=== PATIENT | male | born 1935 | race Caucasian/White ===

== ENCOUNTER 2017-03-18 23:15 | Inpatient (IN) | payer OTHER, MEDICARE ==
[~2017-03-18] VITALS: Ht 177.8 cm; Wt 78.3 kg
[~2017-03-18 23:15] MED LIST: ASPEC81 PO; ATOR-24 PO; COCO1OIL2 PO; LSN25 PO; MAGNESIUM; NTRSLP4 SL; OMEG10007 PO; PLV75 PO; TPRSR25 PO; VITAMINS; [UNRECOGNIZED DRUG - CODE]; [UNRECOGNIZED DRUG - OTHER]
[2017-03-18] MEDS ORDERED: COEN60CA PO (23:35)
[2017-03-18] MEDS ORDERED: MAGN400T6 PO (23:35)
[2017-03-18] MEDS ORDERED: LOSA1TAB PO (23:35)
[2017-03-18] MEDS ORDERED: CLOP1TAB15 PO (23:35)
[2017-03-18] MEDS ORDERED: NTRGSL/4 UT (23:35)
[2017-03-18] MEDS ORDERED: ASPI81TA28 PO (23:35)
[2017-03-18] MEDS ORDERED: OMEG10002 PO (23:35)
--- NOTE | 2017-03-18 23:44 | EMERGENCY ROOM VISIT NOTE ---
History Report prepared by Lisette: Berry Kelsey Under the Supervision of: Dr. Nakia Cruz D.O. First contact with patient: 23:20 Chief Complaint: STROKE SYMPTOMS Stated Complaint: STROKE History of Present Illness The patient is a 81 year old male who presents to the Emergency Room via EMS with complaints of sudden stroke symptoms occurring around 2144 tonight. Per the EMS, the patient was taking a bite of a donut, and then he started staring at the donut and having right sided weakness and right sided facial droop. The EMS states that the gave the patient aspirin before the EMS arrived. The EMS states that his symptoms have been constant since the onset, and nothing has gotten better or worse, and he was mumbling. The EMS states that the patient had good blood pressure and a blood sugar of 167. The states that the patient takes aspirin. 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 Source of History: spouse/significant other, EMS Onset: 2144 Position: other (global) Quality: other (stroke symptoms) Timing: other (sudden) Associated Symptoms: + weakness Note: Associated symptoms: facial droop Review of Systems See HPI for pertinent positives & negatives. A total of 10 systems reviewed and were otherwise negative. Past Medical & Surgical Medical Problems: (1) Heart attack (2) Stroke Family History FHx: heart disease Social History Smoking Status: Former Smoker Alcohol Use: none Drug Use: none Marital Status: Occupation Status: retired Current/Historical Medications Scheduled Aspirin (Aspirin Ec), 81 MG PO DAILY Atorvastatin (Lipitor), 40 MG PO DAILY Clopidogrel (Plavix), 75 MG PO DAILY Coconut Oil (Bulk) (Coconut Oil), 2 TBS PO BID Coenzyme Q10 (Ubidecarenone) (Coenzyme Q10), 60 MG PO DAILY Losartan Potassium (Cozaar), 25 MG PO DAILY Magnesium Oxide (Mag-Ox), 400 MG PO DAILY [place]-3 Fatty Acids (Fish Oil), 1,000 MG PO DAILY Scheduled PRN Nitroglycerin (Nitrostat), 0.4 MG UT PRN PRN for Chest Pain Allergies Coded Allergies: Crab (Verified Allergy, Unknown, 03/18/17) Iodinated Diagnostic Agents (Verified Adverse Reaction, Unknown, HEART PALPITATIONS, 03/18/17) Piroxicam (Verified Adverse Reaction, Unknown, STOMACH UPSET, ITCHING, ) Simvastatin (Verified Adverse Reaction, Unknown, ITCHING, 03/18/17) Physical Exam Vital Signs Date Time Temp Pulse Resp B/P (MAP) Pulse Ox O2 Delivery O2 Flow Rate FiO2 03/19/17 01:21 59 169/90 96 Room Air 03/19/17 01:16 60 170/89 95 Room Air 03/19/17 01:11 58 158/88 96 Room Air 03/19/17 01:06 56 145/78 96 Room Air 03/19/17 01:01 57 143/79 95 Room Air 03/19/17 00:56 161/84 95 Room Air 03/19/17 00:51 151/92 96 Room Air 03/19/17 00:47 156/84 95 Room Air 03/19/17 00:46 57 96 Room Air 03/19/17 00:41 150/82 96 Room Air 03/19/17 00:36 155/94 95 Room Air 03/19/17 00:31 57 151/83 95 Room Air 03/19/17 00:26 58 158/90 95 Room Air 03/19/17 00:25 58 16 95 Room Air 03/19/17 00:22 59 16 152/81 95 Room Air 03/19/17 00:20 62 95 03/19/17 00:16 164/92 03/19/17 00:11 170/97 03/19/17 00:06 163/85 03/19/17 00:05 63 95 03/19/17 00:01 186/95 03/18/17 23:56 159/84 03/18/17 23:51 156/88 03/18/17 23:50 62 95 03/18/17 23:46 62 157/84 95 Room Air 03/18/17 23:42 63 148/68 96 Room Air 03/18/17 23:37 63 157/74 96 Room Air 03/18/17 23:34 165/83 03/18/17 23:33 96 Room Air 03/18/17 23:33 36.7 69 16 165/68 96 Room Air 03/18/17 23:30 70 96 03/18/17 23:29 68 Physical Exam HEENT: Head - normocephalic and atraumatic. Pupils are equal, round, and reactive to light. Extraocular eye muscles are intact and sclera are anicteric. Nose - moist nasal mucosa without discharge. Mouth - moist buccal mucosa. Oropharynx is nonerythematous and there is no tonsillar exudate or edema noted. Neck: Supple; no JVD, nuchal rigidity, cervical lymphadenopathy, or auscultated bruits. Heart: Regular rate and rhythm. There is a normal S1 and S2 with no murmurs, clicks, or gallops appreciated. Lungs: Clear to auscultation bilaterally with no wheezes, rales, or rhonchi. Abdomen: Soft, completely nontender, nondistended, with good bowel sounds. There are no palpable pulsatile masses or hepatosplenomegaly. There is no guarding, rigidity, or rebound noted. Extremities: No evidence of cyanosis, clubbing, or edema. There are easily palpable peripheral pulses. Neuro: The patient is awake and alert with expressive aphasia but able to follow commands. Normal muscle strength of the right hand and wrist but 3/5 at the elbow and shoulder of the right arm. Left arm 5/5. Right leg is 4/5 at the hip and knee and 5/5 at the ankle. Normal pedal push and pull. Obvious right sided facial droop. There are no cerebellar signs. Medical Decision & Procedures ER Provider Diagnostic Interpretation: X-ray results as stated below per interpretation by me: Chest: Normal mediastinum. No pulmonary consolidation or infiltrate. Radiology results as stated below per my review and the radiologist's interpretation: CT HEAD: No ICH, mass effect, or midline shift. No CT evidence of large territorial infarct. The swartz-white matter differentiation appears preserved. Sulci, ventricles, and basal cisterns are normal for patient age. No evidence of skull fracture. Clear sinuses and mastoid air cells. Radiologist: Armaan Clement M.D. Laboratory Results 03/18/17 23:10 Red Blood Count 4.82, Mean Corpuscular Volume 95.6, Mean Corpuscular Hemoglobin 32.2, Mean Corpuscular Hemoglobin Concent 33.6, Mean Platelet Volume 9.0, Neutrophils (%) (Auto) 62.4, Lymphocytes (%) (Auto) 19.8, Monocytes (%) (Auto) 7.3, Eosinophils (%) (Auto) 9.8, Basophils (%) (Auto) 0.4, Neutrophils # (Auto) 4.51, Lymphocytes # (Auto) 1.43, Monocytes # (Auto) 0.53, Eosinophils # (Auto) 0.71, Basophils # (Auto) 0.03 03/18/17 23:10 Test 03/18/17 23:10 03/18/17 23:29 03/19/17 00:04 White Blood Count 7.23 K/uL (4.8-10.8) Red Blood Count 4.82 M/uL (4.7-6.1) Hemoglobin 15.5 g/dL (14.0-18.0) Hematocrit 46.1 % (42-52) Mean Corpuscular Volume 95.6 fL (80-100) Mean Corpuscular Hemoglobin 32.2 pg (25-34) Mean Corpuscular Hemoglobin Concent 33.6 g/dl (32-36) Platelet Count 214 K/uL (130-400) Mean Platelet Volume 9.0 fL (7.4-10.4) Neutrophils (%) (Auto) 62.4 % Lymphocytes (%) (Auto) 19.8 % Monocytes (%) (Auto) 7.3 % Eosinophils (%) (Auto) 9.8 % Basophils (%) (Auto) 0.4 % Neutrophils # (Auto) 4.51 K/uL (1.4-6.5) Lymphocytes # (Auto) 1.43 K/uL (1.2-3.4) Monocytes # (Auto) 0.53 K/uL (0.11-0.59) Eosinophils # (Auto) 0.71 K/uL (0-0.5) Basophils # (Auto) 0.03 K/uL (0-0.2) RDW Standard Deviation 48.1 fL (36.4-46.3) RDW Coefficient of Variation 13.7 % (11.5-14.5) Immature Granulocyte % (Auto) 0.3 % Immature Granulocyte # (Auto) 0.02 K/uL (0.00-0.02) Prothrombin Time 10.4 SECONDS (9.0-12.0) Prothromb Time International Ratio 1.0 (0.9-1.1) Activated Partial Thromboplast Time 26.8 SECONDS (21.0-31.0) Partial Thromboplastin Ratio 1.0 Est Creatinine Clear Calc Drug Dose 51.5 ml/min Estimated GFR () 66.3 Estimated GFR (Non- 57.2 BUN/Creatinine Ratio 11.5 (10-20) Calcium Level 8.2 mg/dl (8.5-10.1) Magnesium Level 2.3 mg/dl (1.8-2.4) Total Creatine Kinase 103 U/L (39-308) Creatine Kinase MB 0.9 ng/ml (0.5-3.6) Creatine Kinase MB Ratio 0.9 (0-3.0) Troponin I 0.527 ng/ml (0-0.045) Thyroid Stimulating Hormone (TSH) 4.020 uIu/ml (0.300-4.500) Bedside Glucose 123 mg/dl (70-99) Bedside Hemoglobin 16.0 g/dl (14.0-18.0) Bedside Hematocrit 47 % (42-52) Bedside Sodium 142 mEq/L (135-144) Bedside Potassium 3.9 mEq/L (3.3-5.0) Bedside Chloride 104 mEq/L (101-112) Bedside Total CO2 26 mEq/l (24-31) Anion Gap 17.0 mmol/L (16-25) Bedside Blood Urea Nitrogen 14 mg/dl (7-18) Bedside Creatinine 1.0 mg/dl (0.6-1.3) Bedside Glucose (other) 126 mg/dl (70-99) Bedside Ionized Calcium (Josette) 1.14 mmol/l (1.12-1.32) Laboratory results per my review. Medications Administered Medications (Trade) Dose Ordered Sig/[facility] Route Start Time Stop Time Status Last Admin Dose Admin Alteplase, Recombinant 72 mg/ Empty Bag 72 ml @ 72 mls/hr TODAY@2350 IV 03/18/17 23:50 03/19/17 00:49 DC 03/18/17 23:50 72 MLS/HR Alteplase, Recombinant 8 mg/ Syringe 8 ml @ 8 mls/min TODAY@2350 IV 03/18/17 23:50 03/18/17 23:59 DC 03/18/17 23:50 8 MLS/MIN Sodium Chloride 1,000 ml @ 50 mls/hr Q20H IV 03/18/17 23:57 03/19/17 01:51 DC 03/18/17 23:57 50 MLS/HR Procedure Medications: Alteplase IV, NSS IV ECG Indication: other (stroke symptoms) Rate (beats per minute): 63 Rhythm: normal sinus Findings: 1st degree AV block, no acute ischemic change, no ectopy ED Course 2320: Past medical records reviewed. A stroke alert was called. I met the patient with EMS in the ambulance bay entrance and the patient went directly to CT scan. The patient was evaluated in room A1. A complete history and physical exam was performed. Laboratory studies were drawn as above. Twelve-lead EKG was obtained and a stroke protocol was performed. I discussed the case with Dr. Stephens. 2356: I reevaluated the patient. 2357: Sodium Chloride 1000 ml @ 50 mls/hr IV. 0017: I reassessed the patient, and the family was talking with Dr. Stephens via telestroke, and he reviewed the risks and benefits of TPA with the family, and they elected to use it 0030: I reassessed the patient, and the TPA was administered, and his speech was slightly improved 0031: I discussed the patient's case with Dr. Negro 0032: I discussed the patient's case with Dr. Street, ICU, and he is going to evaluate the patient for further treatment 0111: I reevaluated the patient, and there was additional improvement. The face was not as drooped, and he seems to have improved strength in the right arm. Medical Decision The patient is a 81 year old male who presents to the ED with stroke symptoms. Differential diagnosis includes hypoglycemia, TIA, stroke, and intracranial hemorrhage. I attest that I have personally reviewed the patient's current medication list. Patient was found initially to have an elevated blood pressure, and he will be followed closely after receiving TPA. Lab results show: No leukocytosis, stable H&H, elevated troponin at 0.5, glucose 126, normal renal function, glucose 123, normal coags CT scan of the brain was unremarkable. The patient was evaluated through tele- stroke. Neurology from [place] felt the patient was an appropriate candidate for TPA. This was administered and there was some neurological improvement. I' ve discussed the case with the [facility] Hospitalist as well as the business applications specialist and they will care for the patient. The patient's blood pressure remained controlled. Consults Time Called: 28 Consulting Physician: Dr. Negro Returned Call: [phone] I discussed the patient's case with Dr. Negro Additional Consults: Time Called: 28 Consulted Physician: Dr. Street Returned Call: [phone] Additional Comments: I discussed the patient's case with Dr. Street, ICU, and he is going to evaluate the patient for further treatment Impression Primary Impression: Acute CVA (cerebrovascular accident) Critical Care I have personally spent greater than 60 minutes of critical care time in the direct management of this patient. This includes bedside care, interpretation of diagnostic studies, and testing, discussion with consultants, patient, and family members, and other required patient management activities. This 60 minutes is in excess of all separately billable procedures. Scribe Attestation The scribe's documentation has been prepared under my direction and personally reviewed by me in its entirety. I confirm that the note above accurately reflects all work, treatment, procedures, and medical decision making performed by me. Departure Information Dispostion Being Evaluated By Hospitalist Naomy Arnett M.D. (PCP) Forms HOME CARE DOCUMENTATION FORM, IMPORTANT VISIT INFORMATION Patient Instructions My [facility]
[2017-03-18] MEDS ORDERED: SET 2260-0500 IV ONE (23:45)
[2017-03-18] MEDS ORDERED: ALTEPLASE, RECOMBINANT INJ 72 MG in EMPTY BAG 0 ML IV SCH (23:50)
[2017-03-18] MEDS ORDERED: ALTEPLASE, RECOMBINANT INJ 8 MG in SYRINGE 0 ML IV SCH (23:50)
[2017-03-18] MEDS ORDERED: SODIUM CHLORIDE 0.9% 1000ML 1,000 ML IV SCH (23:57)
[2017-03-19] VITALS (58 sets, daily range): BP systolic 118–178; BP diastolic 60–127; PULSE 46–68; TEMP 36.5–37.1; O2SAT 91–96; Ht 177.8 cm; Wt 78.3 kg
[2017-03-19 00:09] LABS: BASO % 0.4 %; BASO ABS # 0.03 K/uL (0-0.2); COMPLETE YES; EOS % 9.8 %; HEMATOCRIT 46.1 % (42-52); IG% 0.3 %; LYMPH % 19.8 %; LYMPH ABS # 1.43 K/uL (1.2-3.4); MEAN CELL VOLUME 95.6 fL (80-100); MEAN CORPUSCULAR HEMOGLOBIN 32.2 pg (25-34); MEAN CORPUSCULAR HGB CONC 33.6 g/dl (32-36); MONO % 7.3 %; NEUT % 62.4 %; PLATELET COUNT 214 K/uL (130-400); RED BLOOD COUNT 4.82 M/uL (4.7-6.1); WHITE BLOOD COUNT 7.23 K/uL (4.8-10.8)
[2017-03-19 00:17] LABS: ISTAT IONIZED CALCIUM 1.14 mmol/l (1.12-1.32)
[2017-03-19 00:17] LABS: BUN/CREATININE RATIO 11.5 (10-20); CALCIUM 8.2 mg/dl (8.5-10.1); CREATININE 1.2 mg/dl (0.60-1.40)
[2017-03-19 00:25] LABS: CKMB/CK RATIO 0.9 (0-3.0)
[2017-03-19 00:32] LABS: PROTHROMBIN TIME (PATIENT) 10.4 SECONDS (9.0-12.0)
--- NOTE | 2017-03-19 00:42 | Critical Care Consultation ---
Critical Care Consultation Date of Consultation: Mar 19, 2017. Attending Physician: Dr. Negro Reason for Consultation: s/p TPA for Right Sided Stroke Symptoms History of Present Illness Kris Shabazz is a 81yo male who presented to [facility] ED on 03/18 via EMS after sudden onset unilateral stroke like symptoms. He was reportedly eating around 2144 when he began staring at his food. He experienced right sided weakness, right sided facial droop, and mumbling. He took an aspirin according to his with no change in presentation. He remained hemodynamically stable through admission into the ICU. His SBP has ranged from 148-186. He was seen via tele-stroke and TPA was recommended as well as admission. 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 ECHO at that time demonstrated EF of 45-50%, Left Vent Systolic Function mildly reduced with moderate apical, septal, anteroseptal, and anterior wall motion abnormality. Grade 1 diastolic dysfunction was noted. Pt received TPA at 2350. Per record NIH at 0029 was 9. During conversation pt speech slightly improved. Pt was able to speak some answers to the Tele-Stroke doctor prior to this; he was able to right answers that were correct. Tele= Stroke physician stated goal SBP <180 as well as no ASA or Plavix for the next 24 hours. Pt is treated for hyperlipidemia at home with Atorvastatin as well as CAD with ASA and Clopidogrel. Upon my examination, pt only answers no verbally and otherwise nods with his head. He appears to be comfortable and has no current complaints. Repeat NIH improved to 6. Pt denies recent illness, pain, change in vision, fever, chills, nausea, vomiting, upset stomach. He denies cough, dyspnea, shortness of breath , chest pain/pressure, or awareness of tachyarrhythmia. Past Medical/Surgical History Medical Problems: CVA PR Hyperlipidemia Hx/o Bradycardia Surgical: Tonsillectomy Family History FHx: heart disease Social History Smoking Status: Former Smoker Smokeless Tobacco Use: No Alcohol Use: none Drug Use: none Marital Status: Occupation Status: retired Allergies Coded Allergies: Crab (Verified Allergy, Unknown, 03/18/17) Iodinated Diagnostic Agents (Verified Adverse Reaction, Unknown, HEART PALPITATIONS, 03/18/17) Piroxicam (Verified Adverse Reaction, Unknown, STOMACH UPSET, ITCHING, ) Simvastatin (Verified Adverse Reaction, Unknown, ITCHING, 03/18/17) Home Medications Scheduled Aspirin (Aspirin Ec), 81 MG PO DAILY Atorvastatin (Lipitor), 40 MG PO DAILY Clopidogrel (Plavix), 75 MG PO DAILY Coconut Oil (Bulk) (Coconut Oil), 2 TBS PO BID Coenzyme Q10 (Ubidecarenone) (Coenzyme Q10), 60 MG PO DAILY Losartan Potassium (Cozaar), 25 MG PO DAILY Magnesium Oxide (Mag-Ox), 400 MG PO DAILY [place]-3 Fatty Acids (Fish Oil), 1,000 MG PO DAILY Scheduled PRN Nitroglycerin (Nitrostat), 0.4 MG UT PRN PRN for Chest Pain Current Inpatient Medications Current Inpatient Medications Medications (Trade) Dose Ordered Sig/[place] Route Start Time Stop Time Status Last Admin Dose Admin Alteplase, Recombinant 72 mg/ Empty Bag 72 ml @ 72 mls/hr TODAY@2350 IV 03/18/17 23:50 03/19/17 00:49 03/18/17 23:50 72 MLS/HR Sodium Chloride 1,000 ml @ 50 mls/hr Q20H IV 03/18/17 23:57 04/17/17 23:56 Review of Systems 12 systems reviewed and negative other than previously mentioned in the HPI. Physical Exam Date Time Temp Pulse Resp B/P (MAP) Pulse Ox O2 Delivery O2 Flow Rate FiO2 03/19/17 00:26 58 158/90 95 Room Air 03/19/17 00:25 58 16 95 Room Air 03/19/17 00:22 59 16 152/81 95 Room Air 03/19/17 00:20 62 95 03/19/17 00:16 164/92 03/19/17 00:11 170/97 03/19/17 00:06 163/85 03/19/17 00:05 63 95 03/19/17 00:01 186/95 03/18/17 23:56 159/84 03/18/17 23:51 156/88 03/18/17 23:50 62 95 03/18/17 23:46 62 157/84 95 Room Air 03/18/17 23:42 63 148/68 96 Room Air 03/18/17 23:37 63 157/74 96 Room Air 03/18/17 23:34 165/83 03/18/17 23:33 96 Room Air 03/18/17 23:33 36.7 69 16 165/68 96 Room Air 03/18/17 23:30 70 96 03/18/17 23:29 68 Vital Signs - as noted Laboratory Data - as noted Physical Exam: General - NAD, very sedte Eyes - PERRL, EOMI No icterus, gaze conjugate ENT - Mucosa dry with blood present throughout, no lesions or candidiasis Neck - Supple, trachea midline, no masses or lymphadenopathy, no JVD or bruits Lungs - No paradoxical chest wall movement, clear & diminished to auscultation bilaterally, no wheezes, rales, or rhonchi Heart - Reg rate and rhythm, No murmur, rubs, clicks, or gallops appreciated Abdomen - BS present, no bruits noted, tympanic to percussion, soft, nontender, nondistended, no organomegaly Extremities - No edema, pedal pulses intact Neuro - A&O X 3 Proprioception intact, neg pronator drift Strength: Moves all extremities. Upper and Lower Extremities grossly equal side to side. Lifting head to resistance 3/5. Reflexes: normal and equal Cerebellum: Finger to nose appropriate CN:PERRL, EOMI, right sided facial droop, aphasia, uvula/tongue midline Laboratory Results Last 24 Hours Test 03/18/17 23:10 03/18/17 23:29 03/19/17 00:04 White Blood Count 7.23 K/uL Red Blood Count 4.82 M/uL Hemoglobin 15.5 g/dL Hematocrit 46.1 % Mean Corpuscular Volume 95.6 fL Mean Corpuscular Hemoglobin 32.2 pg Mean Corpuscular Hemoglobin Concent 33.6 g/dl Platelet Count 214 K/uL Mean Platelet Volume 9.0 fL Neutrophils (%) (Auto) 62.4 % Lymphocytes (%) (Auto) 19.8 % Monocytes (%) (Auto) 7.3 % Eosinophils (%) (Auto) 9.8 % Basophils (%) (Auto) 0.4 % Neutrophils # (Auto) 4.51 K/uL Lymphocytes # (Auto) 1.43 K/uL Monocytes # (Auto) 0.53 K/uL Eosinophils # (Auto) 0.71 K/uL Basophils # (Auto) 0.03 K/uL RDW Standard Deviation 48.1 fL RDW Coefficient of Variation 13.7 % Immature Granulocyte % (Auto) 0.3 % Immature Granulocyte # (Auto) 0.02 K/uL Prothrombin Time 10.4 SECONDS Prothromb Time International Ratio 1.0 Activated Partial Thromboplast Time 26.8 SECONDS Partial Thromboplastin Ratio 1.0 Sodium Level 145 mmol/L Potassium Level 4.0 mmol/L Chloride Level 109 mmol/L Carbon Dioxide Level 28 mmol/L Anion Gap 8.0 mmol/L 17.0 mmol/L Blood Urea Nitrogen 14 mg/dl Creatinine 1.20 mg/dl Est Creatinine Clear Calc Drug Dose 51.5 ml/min Estimated GFR () 66.3 Estimated GFR (Non- 57.2 BUN/Creatinine Ratio 11.5 Random Glucose 126 mg/dl Calcium Level 8.2 mg/dl Total Creatine Kinase 103 U/L Creatine Kinase MB 0.9 ng/ml Creatine Kinase MB Ratio 0.9 Troponin I 0.527 ng/ml Bedside Glucose 123 mg/dl Bedside Hemoglobin 16.0 g/dl Bedside Hematocrit 47 % Bedside Sodium 142 mEq/L Bedside Potassium 3.9 mEq/L Bedside Chloride 104 mEq/L Bedside Total CO2 26 mEq/l Bedside Blood Urea Nitrogen 14 mg/dl Bedside Creatinine 1.0 mg/dl Bedside Glucose (other) 126 mg/dl Bedside Ionized Calcium (Josette) 1.14 mmol/l Diagnostic Results CXR: 03/19/2017 0132: Formal Read pending Mild vascular congestion noted. No pleural effusion/ consolidation noted. Pt is rotated, bony anatomy is grossly intact CT Head: 03/18/2017 2323 No ICH, mass effect, or midline shift. No CT evidence of large territorial indarct. The swartz-white matter differentiation appears preserved. Sulci, ventricles, and basal cisterns are normal for patient age. No evidence of skull fracture. Clear sinuses and mastoid air cells. Armaan Clement M.D. Assessment & Plan (1) Stroke (2) Acute CVA (cerebrovascular accident) Neuro: * Monitor Neuro status per Stroke Protocol * Dysphagia Screening * Fall Precautions * NIH Stroke Scale per protocol * Initiate TPA CVA Stroke Day 2 protocol 03/20 * Consult Speech * Carotid Doppler * MRI.MRA * * Currently Pain Free Cards: * Monitor on Telemetry * NSR currently * Monitor for signs of neurologic changes/hemorrhagic conversion. * Continue home medications once pt is no longer NPO * Peaked Trop: Trend Pulm: * Adequate saturations on room air * Monitor for changes, Supplemental O2 as indicated /Electrolytes: * Place palma to gravity if pt can not void at bed. * BUN/Cr: 14/1.0: Appears at baseline * Electrolytes WNL: Monitor Daily GI: NPO until Dysphagia Screening * Will require AHA when ready MSK: * Consult Physiatry * PT/OT Consult Pending Heme: * H&H: 16.0/47 * Plts: 214 * PT/INR: 10.4/1.0, aPTT: 26.8 * Monitor for signs of hemorrhagic conversion * Monitor daily labs I.D: * WBCs: 7.23, Afebrile * Monitor fever curve * No gross sign of infection currently Endocrine: * No out-pt diagnoses * Obtain A1C * TSH WNL Access: No current indication for central access. Monitor for changes. Maintain 2 PIVs. GI Prophylaxis: Not Currently Indicated DVT Prophylaxis: SCDs Ordered CCT: 60 minutes; Not including any billable procedures. Thank you for including us in the care of this patient. Please review Dr. William Street's addendum for further recommendations. I have personally evaluated and examined this patient. I agree with assessment and plan of Cassie Gomez PA-C.
[2017-03-19 01:01] LABS: MAGNESIUM 2.3 mg/dl (1.8-2.4); THYROID STIMULATING HORMONE 4.02 uIu/ml (0.300-4.500)
[2017-03-19] MEDS ORDERED: SODIUM CHLORIDE 0.45% 1000ML 1,000 ML IV SCH (01:31)
[2017-03-19] MEDS ORDERED: MoRPHine SULFATE 4 MG/ML 1 ML CARP\\VIAL IV PRN (01:45)
[2017-03-19] MEDS ORDERED: ONDANSETRON INJ 2 MG/ML 2 ML VIAL IV PRN (01:45)
[2017-03-19] MEDS ORDERED: TRAMADOL HCL 50 MG TAB PO PRN (01:45)
[2017-03-19] MEDS ORDERED: ACETAMINOPHEN 325 MG TAB PO PRN (01:45)
[2017-03-19] MEDS ORDERED: NITROGLYCERIN 0.4 MG SL PER TAB CHARGE SL PRN (01:45)
[2017-03-19] MEDS ORDERED: PHARMACIST DISCHARGE MED REC CONSULT PRN (01:45)
[2017-03-19] MEDS ORDERED: ALBUT/IPRATROP 3MG/0.5MG NEB 3 ML VIAL INH PRN (02:00)
--- NOTE | 2017-03-19 04:24 | HISTORY & PHYSICAL EXAMINATION ---
DATE OF ADMISSION: 03/19/2017 PRIMARY CARE PHYSICIAN: Dr. Elliott CHIEF COMPLAINT: Stroke. HISTORY OF PRESENT ILLNESS: Hx obtained from the patient, family, and records. Limited hx from px 2 to aphasic state. Medical history is significant for chronic systolic/diastolic HF (EF of 55% from 2016 stress echo), CAD status post stenting. hypertension, hyperlipidemia, past tobacco abuse, chronic bradycardia as per records. Recent confinement last May 2015 under Cardiology service for acute MS. A drug-eluting stent was deployed in the proximal LAD. Last night, the patient was taking a bite of a doughnut when noticed patient to be staring at the doughnut , noted right facial and right upper extremity weakness. Patient unable to get words out. No chest pain and no shortness of breath. The patient is compliant with home Aspirin and Plavix. Patient's gave patient some aspirin prior to arrival of EMS. Patient was brought to the Emergency Room. At the Emergency Room, Stroke alert was called. Patient subsequently given tPA. Some improvement after tPA initiation. MEDICAL HISTORY: As above. SURGERIES: He has had cholecystectomy. HOME MEDICATIONS: Include; aspirin, Plavix, Lipitor, Cozaar, mag ox, Nitrostat and fish oil. ALLERGIC: NSAID, SIMVASTATIN AND DYE. FAMILY HISTORY: Heart disease. PERSONAL AND SOCIAL HISTORY: Past tobacco abuse. No chronic intake of alcoholic beverages. 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 REVIEW OF SYSTEMS: Could not be fully obtained. PHYSICAL EXAMINATION: VITAL SIGNS: Blood pressure was noted to be 186/95 [id number], pulse 59, RR 16, temperature 36.7 and sats 96 on room air. GENERAL: Noted to be slightly anxious, in no respiratory distress, looks younger for stated age. aphasic SKIN: Normal color. HEENT: Alopecia. [place] palpebral conjunctivae, dry mucosa. Right facial droop. NECK: No JVD. Supple. CHEST: Decreased effort. HEART: bradycardic ABDOMEN: Soft. EXTREMITIES: No edema, no tenderness. NEUROLOGIC: No gross focality except for aphasia, R facila droop, and decreased strength in the right upper extremity. LABORATORIES: Hemoglobin was noted to be 15.5, white cell count 7.3 and platelets was noted to be 214. Sodium 145, potassium 4, chloride 109 and CO2 of 26. BUN 40, creatinine 1.2 and glucose was noted to be 126. Troponin was noted to be 0.5, TSH 4.02. Lipid profile in August 2016 : cholesterol 149, HDL 58, LDL [address] head initial read; no ICH, no mass effect/midline shift, no acute infarct Chest x-ray min congestion. EKG as per my interpretation; 60, LAD, LAFB, nonspecific TW abnormalities in the lateral leads. ASSESSMENT: 1. Acute cerebrovascular accident likely left middle cerbral artery distribution poss aspirin and Plavix failure. some improvement of neuro deficit noted post TPA admin 2. Hypertension urgency 2 to above 3. chronic systolic and diastolic heart failure, some pulm congestion albeit no overt decompensation 4. hx CAD sp stenting 5. hyperlipidemia on statin tx 6. chronic bradycardia 7. past tobacco abuse PLAN: ICU monitoring post tPA. Neuro checks. stroke patel as follows : MRI/MRA head, TTE, carotid Dopplers with echo resume antiplatelet tx at some point continue statin permissive HTN for now to optimize cerebral perfusion Neurology consult RE stroke. PT/OT eval. DVT prophylaxis, SCDs for now post TPA Lovenox SQ for pharmacologic prophylaxis at some point. Full code. MTDD
[2017-03-19 06:05] LABS: BASO % 0.4 %; BASO ABS # 0.03 K/uL (0-0.2); COMPLETE YES; EOS % 8.1 %; HEMATOCRIT 42.7 % (42-52); IG% 0.1 %; LYMPH % 19.8 %; LYMPH ABS # 1.49 K/uL (1.2-3.4); MEAN CELL VOLUME 95.7 fL (80-100); MEAN CORPUSCULAR HEMOGLOBIN 32.1 pg (25-34); MEAN CORPUSCULAR HGB CONC 33.5 g/dl (32-36); MEAN PLATELET VOLUME 9.4 fL (7.4-10.4); MONO % 7.2 %; NEUT % 64.4 %; PLATELET COUNT 184 K/uL (130-400); RED BLOOD COUNT 4.46 M/uL (4.7-6.1); WHITE BLOOD COUNT 7.54 K/uL (4.8-10.8)
--- NOTE | 2017-03-19 07:42 | DIAGNOSTIC IMAGING REPORT ---
SINGLE VIEW CHEST CLINICAL HISTORY: Strokelike symptoms. Generalized weakness. FINDINGS: An AP, portable, upright chest radiograph is obtained. No prior studies are available for comparison at the time of dictation. The examination is degraded by portable technique and patient rotation. The heart is top normal for projection. There is mild pulmonary vascular congestion. Bibasilar airspace opacities likely represent atelectasis. No large pleural effusion or pneumothorax is seen. The skeletal structures are osteopenic. The bony thorax is grossly intact. Cholecystectomy clips are seen in the right upper quadrant. IMPRESSION: 1. Findings suggest mild pulmonary vascular congestion. 2. Bibasilar airspace opacities likely represent atelectasis. Correlate clinically for evidence of a mild infectious/inflammatory pneumonitis. Electronically signed by: Raul Bravo M.D. 03/19/2017 7:41 AM Dictated Date/Time: 03/19/2017 7:40 AM
--- NOTE | 2017-03-19 07:44 | DIAGNOSTIC IMAGING REPORT ---
BILATERAL CAROTID DOPPLER STUDY HISTORY: Mental status change stroke COMPARISON: None. TECHNIQUE: Real-time, grayscale, and color Doppler sonography of the carotid arteries was performed. Imaging reviewed in the transverse and longitudinal planes. All measurements were calculated based on NASCET criteria. FINDINGS: Antegrade flow is seen in the bilateral vertebral arteries. The brachial pressures are hemodynamically similar. The peak systolic velocity within the right ICA is 54. The right systolic ratio is 0.8. The peak systolic velocity within the left ICA is 59. The left systolic ratio is 0.8. IMPRESSION: No hemodynamically significant stenosis seen within the carotid arteries. Electronically signed by: Peter Peralta M.D. 03/19/2017 7:42 AM Dictated Date/Time: 03/19/2017 7:42 AM
--- NOTE | 2017-03-19 07:45 | DIAGNOSTIC IMAGING REPORT ---
HEAD CT NONCONTRAST CT DOSE: 537.48 mGy.cm HISTORY: Mental status change STROKE TECHNIQUE: Multiaxial CT images of the head were performed without the use of intravenous contrast. Comparison: None. Findings: The paranasal sinuses and mastoid air cells are clear. The calvarium and skull base are intact. The ventricles and sulci are within normal limits. There is no mass, hematoma, midline shift, or acute infarct. Impression: No acute intracranial abnormality. Electronically signed by: Peter Peralta M.D. 03/19/2017 7:44 AM Dictated Date/Time: 03/19/2017 7:43 AM
[2017-03-19] MEDS ORDERED: PERFLUTREN LIPID MICROSPHERE (DEFINITY) IV ONE (08:53)
[2017-03-19] MEDS ORDERED: SODIUM CHLOR 0.45% + 20MEQ KCL 1,000 ML IV SCH (09:00)
[2017-03-19] MEDS: FAMOTIDINE IV INJ 20 MG in DEXTROSE 5% 100ML 100 ML IV SCH ×2 (10:31→21:05)
[2017-03-19] MEDS: ATORVASTATIN 40 MG TAB PO SCH (10:35)
--- NOTE | 2017-03-19 10:45 | ECHOCARDIOGRAM REPORT ---
*NOTICE TO RECEIVING DEMOCRAT AGENCY This information is strictly Confidential and protected under [place] law. [place] law prohibits you from making any further disclosure of this information unless further disclosure is expressly permitted by the written consent of the person to whom it pertains or is authorized by law. A general authorization for the release of medical or other information is not sufficient for this purpose. Hospital accepts no responsibility if the information is made available to any other person, INCLUDING THE PATIENT. Interpretation Summary * Name: MARÍA WU Study Date: 03/19/2017 08:23 AM BP: 137/66 mmHg * Patient Location: .[facility]ICU\S\E101\S\1 HR: 56 * : 1935 (M/d/yyyy) Gender: Male Height: 70 in * Age: 81 yrs Ethnicity: CA Weight: 189 lb * Ordering Physician: Nelson Negro * Referring Physician: Self, Referred * Performed By: Camryn Steward RDCS * * Reason For Study: STROKE * BSA: 2.0 m2 * -- Conclusions -- * Normal LV chamber size with mild concentric LVH. * Normal LV systolic function, EF 60-65%. * No segmental left ventricular wall motion abnormalities are noted. * Grade I diastolic dysfunction. * Aortic valve sclerosis mild, without significant aortic valvular stenosis. * Possible atheromatous disease of the ascending aorta vs. artifact. Recommend CT of chest to further evaluate if clinically indicated. * Injection of contrast documented no interatrial shunt. Procedure Details * A saline contrast injection was performed to assess for cardiac shunting. * The injection was performed through an intravenous line in the left arm. * The attending nurse who injected the saline contrast was ENRIQUE FRAUSTO RN. * A total of 20 cc of agitated saline was given. * A contrast injection of Definity was performed to improve assessment of LV function. * Contrast was injected into an intravenous site in the left arm. * One vial of Definity ultrasound contrast was diluted in normal saline to a total volume of 10 ml. A total of '2' ml of solution was administered during imaging. * Lot # [id number] of Definity utilized for procedure. * Expiration date MAY 17. * The attending nurse who injected the contrast agent was ENRIQUE FRAUSTO RN. Left Ventricle * The left ventricle is normal in size. * There is mild concentric left ventricular hypertrophy. * Ejection Fraction = 60-65%. * Left ventricular systolic function is normal. * No segmental left ventricular wall motion abnormalities are noted. * The left ventricular wall motion is normal. Right Ventricle * The right ventricular cavity size is normal (basal dimension <4.2 cm in right ventricular apical 4-chamber view). * The right ventricular systolic function is normal as assessed by tricuspid annular plane systolic excursion (TAPSE) (normal >1.5 cm). Atria * The left atrial size is normal. * Right atrial size is normal. * Injection of contrast documented no interatrial shunt. Mitral Valve * The mitral valve is normal in structure and function. Tricuspid Valve * The tricuspid valve is normal in structure and function. Aortic Valve * The aortic valve is tricuspid. The leaflet thickness if normal. There is no aortic stenosis, and no significant insufficiency. * Aortic valve sclerosis mild, without significant aortic valvular stenosis. * There is no significant aortic regurgitation. Pulmonic Valve * The pulmonary valve is not well seen, but the Doppler examination is normal without significant regurgitation or stenosis. Great Vessels * The aortic root and proximal ascending aorta are normal sized. * Possible atheromatous disease of the ascending aorta vs. artifact. Recommend CT of chest to further evaluate if clinically indicated. Pericardium/Pleural * There is no pericardial effusion. Left Ventricular Diastolic Function * Grade I diastolic dysfunction, (abnormal relaxation pattern). MMode 2D Measurements and Calculations IVSd 1.3 cm IVSs 2.0 cm LVIDd 4.5 cm LVIDs 3.3 cm LVPWd 1.2 cm LVPWs 1.6 cm IVS/LVPW 1.1 FS 26.5 % EDV(Teich) 93.4 ml ESV(Teich) 44.9 ml EF(Teich) 52.0 % EDV(cubed) 92.3 ml ESV(cubed) 36.7 ml EF(cubed) 60.3 % % IVS thick 48.5 % % LVPW thick 26.8 % LV mass(C)d 221.2 grams LV mass(C)dI 108.5 grams/m\S\2 LV mass(C)s 241.3 grams LV mass(C)sI 118.4 grams/m\S\2 SV(Teich) 48.5 ml SI(Teich) 23.8 ml/m\S\2 SV(cubed) 55.6 ml SI(cubed) 27.3 ml/m\S\2 Ao root diam 3.3 cm Ao root area 8.7 cm\S\2 LA dimension 2.7 cm LA/Ao 0.83 LVAd ap4 34.4 cm\S\2 LVLd ap4 8.6 cm EDV(MOD-sp4) 111.0 ml LVAs ap4 19.2 cm\S\2 LVLs ap4 7.4 cm ESV(MOD-sp4) 40.1 ml EF(MOD-sp4) 63.9 % LVAd ap2 35.3 cm\S\2 LVLd ap2 9.0 cm EDV(MOD-sp2) 117.0 ml LVAs ap2 20.0 cm\S\2 LVLs ap2 7.2 cm ESV(MOD-sp2) 47.8 ml EF(MOD-sp2) 59.1 % SV(MOD-sp4) 70.9 ml SI(MOD-sp4) 34.8 ml/m\S\2 SV(MOD-sp2) 69.2 ml SI(MOD-sp2) 34.0 ml/m\S\2 Doppler Measurements and Calculations MV E max betsy 54.8 cm/sec MV A max betsy 77.6 cm/sec MV E/A 0.71 MV dec time 0.35 sec Ao V2 max 154.7 cm/sec Ao max PG 9.6 mmHg Ao max PG (full) 3.1 mmHg LV V1 max PG 6.5 mmHg LV V1 max 127.3 cm/sec
--- NOTE | 2017-03-19 14:13 | DIAGNOSTIC IMAGING REPORT ---
Brain MRA HISTORY: Mental status change stroke TECHNIQUE: 3-D cupy-lf-vanqna MRA of the brain was performed without contrast. COMPARISON STUDY: None. FINDINGS: Visualized intracranial internal carotid arteries, distal vertebral arteries, and basilar artery are widely patent. There is no significant stenosis, occlusion, or aneurysm seen within the bilateral ACAs, MCAs, or talent development specialist. IMPRESSION: No significant stenosis, occlusion, or aneurysm within the [place] of [place]. Electronically signed by: Peter Peralta M.D. 03/19/2017 2:12 PM Dictated Date/Time: 03/19/2017 2:12 PM
--- NOTE | 2017-03-19 14:13 | DIAGNOSTIC IMAGING REPORT ---
MRI OF THE BRAIN WITHOUT CONTRAST CLINICAL HISTORY: stroke STATUS POST TPA COMPARISON STUDY: Noncontrast head CT 05/05/1917 FINDINGS: Sagittal T1, axial diffusion, proton density and T2 weighted axial, coronal FLAIR, and axial T1-weighted images were acquired. No intra or extra-axial mass lesions are visualized There is a 3 cm focus of restricted water diffusion involving the left basal ganglia, consistent with an acute infarct. There is no evidence of ventricular dilatation. Proton density T2-weighted and FLAIR images reveal scattered foci of increased T2 signal within the white matter, likely on a small vessel basis. In addition there is a focus of increased T2 and FLAIR signal in the left basal ganglia, consistent with acute/subacute infarct There are no abnormal flow voids. IMPRESSION: 1. No evidence of intracranial mass 2. 3 cm focus of restricted water diffusion within the left basal ganglia consistent with an acute infarct Electronically signed by: Johnson Grimes M.D. 03/19/2017 2:12 PM Dictated Date/Time: 03/19/2017 2:09 PM
--- NOTE | 2017-03-19 14:23 | Critical Care Progress Note ---
Critical Care Progress Note Date of Service Mar 19, 2017. Critical Care Progress Note This is in addition to critical care consultation. 1. S/P TPA administration day 1 for acute CVA 2. CAD s/p CA 3. Elevated troponin most likely supply and demand 4. Hyperlipidemia 5. HTN NVS - continue to monitor per stroke protocol, NIH scale and neurochecks - MRI/ MRA head is pending - patient failed dysphagia screen so NPO until seen by speech - fall precautions - Carotid doppler WNL - pending [address] head - ASA and plavix on hold RVS - O2 per nursing protocol CVS - continue to monitor - NSR currently - Troponin has peaked and reflected supply and demand - continue losartan once not NPO - FLP pending - Atorvastatin 40 mg, consider increasing to 80 mg if not contraindicated when taking PO GI - NPO until cleared by speech - Famotidine bid IV - Continue to monitor I&O ENDO BSG AC HS A1C- pending HEME - continue to monitor for signs of bleeding - continue to follow CBC DVT Prophylaxis -SCD Resident Physician Supervision Note: Dr. Maxwell was resident physician during care of patient. I separately evaluated patient and did history and exam. I discussed the case with the resident and generally agree with the findings and plan. I reviewed the MRI report as well as the neurology consultation dated 2016. Continue ICU observation, will be post 24 hours from TPA at 0 1500 tomorrow morning, CT scan in a.m. and likely resume antiplatelet therapy at that time. Documented By: William Street DO
--- NOTE | 2017-03-19 14:25 | Progress Note ---
Subjective Date of Service: Mar 19, 2017. Subjective Pt evaluation today including: conversation w/ patient, conversation w/ family , physical exam, lab review, review of studies, review of inpatient medication list Saw/examined the patient in room 101 Difficulty with expressive himself, aphasic, though answers yes/no is at bedside helping with the history Seems like patient was in his usual state of health when sudden after supper on 03/18, he developed a right sided facial droop; he then developed difficulty speaking; no ambulation issues, but some bilateral arm weakness, which may be chronic. Patient is tearful during exam as he cannot speak. Denies any pain, shortness of breath, palpitations, nausea/vomiting/diarrhea Problem List Medical Problems: (1) Acute CVA (cerebrovascular accident) Status: Acute Review of Systems Constitutional: + weakness Respiratory: No cough, No sputum, No wheezing, No shortness of breath Cardiac: No chest pain, No edema, No palpitations Abdomen: No pain, No nausea, No vomiting, No diarrhea Musculoskeletal: No joint pain Neurologic: + paralysis (right face), + weakness, No memory loss, No numbness/ tingling, No vertigo, No balance problems Heme: No abnormal bleeding/bruising Medications Current Inpatient Medications Medications (Trade) Dose Ordered Sig/Minna Route Start Time Stop Time Status Last Admin Dose Admin Atorvastatin Calcium (Lipitor Tab) 40 mg DAILY PO 03/19/17 09:00 04/18/17 08:59 03/19/17 10:35 40 MG Acetaminophen (Tylenol Tab) 650 mg Q4H PRN PO 03/19/17 01:45 04/18/17 01:44 Nitroglycerin (Nitrostat Tab) 0.4 mg UD PRN SL 03/19/17 01:45 04/18/17 01:44 Miscellaneous Information (Pharmacist Discharge Med Rec Consult) 1 ea UD PRN N/A 03/19/17 01:45 04/18/17 01:44 Ondansetron HCl (Zofran Inj) 4 mg Q6H PRN IV 03/19/17 01:45 04/18/17 01:44 Tramadol HCl (Ultram Tab) 25 mg Q6H PRN PO 03/19/17 01:45 04/18/17 01:44 Morphine Sulfate (MoRPHine SULFATE INJ) 4 mg Q6H PRN IV 03/19/17 01:45 04/02/17 01:44 Albuterol/ Ipratropium (Duoneb) 3 ml Q2H PRN INH 03/19/17 02:00 04/18/17 01:59 Potassium Chloride/Sodium Chloride 1,000 ml @ 75 mls/hr [id number] IV 03/19/17 09:00 04/18/17 08:59 03/19/17 10:31 75 MLS/HR Famotidine 20 mg/ Dextrose 102 ml @ 204 mls/hr Q12@10,22 IV 03/19/17 10:00 04/18/17 09:59 03/19/17 10:31 204 MLS/HR Objective Vital Signs Date Time Temp Pulse Resp B/P (MAP) Pulse Ox O2 Delivery O2 Flow Rate FiO2 03/19/17 12:32 61 21 129/ (43) 94 Room Air 03/19/17 12:30 60 18 95 03/19/17 12:00 93 Room Air 03/19/17 12:00 55 14 138/77 (97) 93 Room Air 03/19/17 11:30 62 18 135/105 (115) 94 Room Air 03/19/17 11:05 61 16 129/96 (107) 94 03/19/17 11:02 58 18 129/96 (107) 95 Room Air 03/19/17 11:00 59 15 93 03/19/17 10:32 64 16 167/97 (120) 93 Room Air 03/19/17 10:30 68 20 93 03/19/17 10:01 59 18 161/94 (116) 92 Room Air 03/19/17 09:32 58 23 163/127 (139) 93 Room Air 03/19/17 09:30 55 15 95 03/19/17 09:02 60 16 125/91 (102) 96 Room Air 03/19/17 09:00 66 15 95 03/19/17 08:31 56 15 151/74 (99) 94 Room Air 03/19/17 08:30 57 15 93 03/19/17 08:01 57 15 136/68 (90) 91 Room Air 03/19/17 08:00 58 16 94 03/19/17 07:31 36.7 57 15 159/74 (102) 93 Room Air 6/20/17 07:30 94 Room Air 03/19/17 07:30 60 14 96 03/19/17 07:01 51 16 137/66 (89) 03/19/17 07:00 53 15 93 03/19/17 06:53 36.7 56 20 137/66 (89) 95 Room Air 03/19/17 06:23 36.6 50 18 139/71 (93) 96 Room Air 03/19/17 05:53 36.7 54 16 142/76 (98) 94 Room Air 03/19/17 05:23 36.9 52 14 150/74 (99) 94 Room Air 03/19/17 04:53 36.8 52 14 137/72 (93) 95 Room Air 03/19/17 04:23 58 15 178/80 (112) 96 Room Air 03/19/17 04:00 95 Room Air 03/19/17 03:53 36.7 52 20 120/60 (80) 94 Room Air 03/19/17 03:23 36.5 53 20 126/72 (90) 93 Room Air 03/19/17 03:08 36.5 54 17 140/71 (94) 95 Room Air 03/19/17 02:57 36.8 59 20 143/92 95 Room Air 03/19/17 02:53 36.7 55 20 143/83 (103) 94 Room Air 03/19/17 02:38 53 18 160/90 (113) 92 Room Air 03/19/17 02:23 53 20 143/77 (99) 94 Room Air 03/19/17 02:08 57 20 172/85 (114) 91 Room Air 03/19/17 01:55 59 19 148/117 (127) 93 Room Air 03/19/17 01:40 36.8 59 2 143/92 (109) 95 Room Air 03/19/17 01:21 59 169/90 96 Room Air 03/19/17 01:16 60 170/89 95 Room Air 03/19/17 01:11 58 158/88 96 Room Air 03/19/17 01:06 56 145/78 96 Room Air 03/19/17 01:01 57 143/79 95 Room Air 03/19/17 00:56 161/84 95 Room Air 03/19/17 00:51 151/92 96 Room Air 03/19/17 00:47 156/84 95 Room Air 03/19/17 00:46 57 96 Room Air 03/19/17 00:41 150/82 96 Room Air 03/19/17 00:36 155/94 95 Room Air 03/19/17 00:31 57 151/83 95 Room Air 03/19/17 00:26 58 158/90 95 Room Air 03/19/17 00:25 58 16 95 Room Air 03/19/17 00:22 59 16 152/81 95 Room Air 03/19/17 00:20 62 95 03/19/17 00:16 164/92 03/19/17 00:11 170/97 03/19/17 00:06 163/85 03/19/17 00:05 63 95 03/19/17 00:01 186/95 03/18/17 23:56 159/84 03/18/17 23:51 156/88 03/18/17 23:50 62 95 03/18/17 23:46 62 157/84 95 Room Air 03/18/17 23:42 63 148/68 96 Room Air 03/18/17 23:37 63 157/74 96 Room Air 03/18/17 23:34 165/83 03/18/17 23:33 96 Room Air 03/18/17 23:33 36.7 69 16 165/68 96 Room Air 03/18/17 23:30 70 96 03/18/17 23:29 68 Physical Exam General Appearance: + mild distress (visibly distressed/tearful during exam due to aphasia) Eyes: normal inspection ENT: hearing grossly normal Respiratory/Chest: chest non-tender, lungs clear, normal breath sounds, no respiratory distress, no accessory muscle use Cardiovascular: regular rate, rhythm, no edema, no murmur Abdomen: normal bowel sounds, non tender, soft Extremities: normal range of motion, non-tender, normal inspection, no pedal edema Neurologic/Psychiatric: alert, + pertinent finding (expressive aphasia, right sided facial droop, good turret lathe operator strength bilaterally; arm/shoulder movements somewhat diminished, 5/5 bilateral LE strength testing) Skin: normal color Laboratory Results Last 24 Hours Test 03/18/17 23:10 03/18/17 23:29 03/19/17 00:04 03/19/17 05:25 White Blood Count 7.23 K/uL 7.54 K/uL Red Blood Count 4.82 M/uL 4.46 M/uL Hemoglobin 15.5 g/dL 14.3 g/dL Hematocrit 46.1 % 42.7 % Mean Corpuscular Volume 95.6 fL 95.7 fL Mean Corpuscular Hemoglobin 32.2 pg 32.1 pg Mean Corpuscular Hemoglobin Concent 33.6 g/dl 33.5 g/dl Platelet Count 214 K/uL 184 K/uL Mean Platelet Volume 9.0 fL 9.4 fL Neutrophils (%) (Auto) 62.4 % 64.4 % Lymphocytes (%) (Auto) 19.8 % 19.8 % Monocytes (%) (Auto) 7.3 % 7.2 % Eosinophils (%) (Auto) 9.8 % 8.1 % Basophils (%) (Auto) 0.4 % 0.4 % Neutrophils # (Auto) 4.51 K/uL 4.86 K/uL Lymphocytes # (Auto) 1.43 K/uL 1.49 K/uL Monocytes # (Auto) 0.53 K/uL 0.54 K/uL Eosinophils # (Auto) 0.71 K/uL 0.61 K/uL Basophils # (Auto) 0.03 K/uL 0.03 K/uL RDW Standard Deviation 48.1 fL 47.9 fL RDW Coefficient of Variation 13.7 % 13.7 % Immature Granulocyte % (Auto) 0.3 % 0.1 % Immature Granulocyte # (Auto) 0.02 K/uL 0.01 K/uL Prothrombin Time 10.4 SECONDS Prothromb Time International Ratio 1.0 Activated Partial Thromboplast Time 26.8 SECONDS Partial Thromboplastin Ratio 1.0 Sodium Level 145 mmol/L Potassium Level 4.0 mmol/L Chloride Level 109 mmol/L Carbon Dioxide Level 28 mmol/L Anion Gap 8.0 mmol/L 17.0 mmol/L Blood Urea Nitrogen 14 mg/dl Creatinine 1.20 mg/dl Est Creatinine Clear Calc Drug Dose 51.5 ml/min Estimated GFR () 66.3 Estimated GFR (Non- 57.2 BUN/Creatinine Ratio 11.5 Random Glucose 126 mg/dl Calcium Level 8.2 mg/dl Magnesium Level 2.3 mg/dl Total Creatine Kinase 103 U/L Creatine Kinase MB 0.9 ng/ml Creatine Kinase MB Ratio 0.9 Troponin I 0.527 ng/ml 0.512 ng/ml Thyroid Stimulating Hormone (TSH) 4.020 uIu/ml Bedside Glucose 123 mg/dl Bedside Hemoglobin 16.0 g/dl Bedside Hematocrit 47 % Bedside Sodium 142 mEq/L Bedside Potassium 3.9 mEq/L Bedside Chloride 104 mEq/L Bedside Total CO2 26 mEq/l Bedside Blood Urea Nitrogen 14 mg/dl Bedside Creatinine 1.0 mg/dl Bedside Glucose (other) 126 mg/dl Bedside Ionized Calcium (Josette) 1.14 mmol/l Test 03/19/17 08:56 Assessment and Plan This is a 81 year old male with a PMH of CAD s/p stenting, diastolic CHF, HTN, HLD, chronic bradycardia presents with right sided stroke symptoms Right Sided CVA Symptoms expressive aphasia and right sided facial droop noted s/p tPA on 03/18 symptoms persist today (03/19) speech evaluation performed, aspiration precautions, mechanical soft diet - continue speech therapy PT/OT pending college tutor and neurologist consulted will monitor for blood pressure, to keep SBP < 185, no aspirin/Plavix x24 hours CAD s/p stenting holding aspirin/Plavix for now secondary to tPA continue statin HTN monitor BP goal SBP < 185 due to tPA use DVT ppx s/p tPA restart aspirin + Plavix after 24 hours FULL CODE
--- NOTE | 2017-03-19 15:12 | Neurology Consultation ---
Neurology Consultation Date of Consultation: Mar 19, 2017. Attending Physician: Shruti Vincent DO Primary Care Physician: Peter Lorenzo PA-C Reason for Consultation: Stroke History of Present Illness Source: patient, family, spouse Kris is a 81 year old male who has a H heart attack with 2 bi pass surgeries , hyperlipidemia. He was sitting at the table eating dinner and his gave amina a doughnut for dessert. He took a bite out of the donut and then started starring at it. He had a facial droop and was unable to form his words. He was brought to the ED and a stroke alert was called and was given tPA with some initial improvement in symptoms. There was no complaint of weakness, numbness, tingling, N, V. He was already taking plavix 75 mg and aspirin 81 mg daily since his cardiac surgeries. He has no prior history of stroke and has never smokes, drink EtOH does drink some caffeine. He has no history of irregular heart beat/afib. Past Medical/Surgical History Medical Problems: (1) Acute CVA (cerebrovascular accident) Status: Acute Social History Smoking Status: Never smoker Smokeless Tobacco Use: No Alcohol Use: none Drug Use: none Marital Status: Housing Status: lives with family Occupation Status: retired Allergies Coded Allergies: Crab (Verified Allergy, Unknown, 03/18/17) Iodinated Diagnostic Agents (Verified Adverse Reaction, Unknown, HEART PALPITATIONS, 03/18/17) Piroxicam (Verified Adverse Reaction, Unknown, STOMACH UPSET, ITCHING, ) Simvastatin (Verified Adverse Reaction, Unknown, ITCHING, 03/18/17) Current Inpatient Medications Current Inpatient Medications Medications (Trade) Dose Ordered Sig/Minna Route Start Time Stop Time Status Last Admin Dose Admin Atorvastatin Calcium (Lipitor Tab) 40 mg DAILY PO 03/19/17 09:00 04/18/17 08:59 03/19/17 10:35 40 MG Acetaminophen (Tylenol Tab) 650 mg Q4H PRN PO 03/19/17 01:45 04/18/17 01:44 Nitroglycerin (Nitrostat Tab) 0.4 mg UD PRN SL 03/19/17 01:45 04/18/17 01:44 Miscellaneous Information (Pharmacist Discharge Med Rec Consult) 1 ea UD PRN N/A 03/19/17 01:45 04/18/17 01:44 Ondansetron HCl (Zofran Inj) 4 mg Q6H PRN IV 03/19/17 01:45 04/18/17 01:44 Tramadol HCl (Ultram Tab) 25 mg Q6H PRN PO 03/19/17 01:45 04/18/17 01:44 Morphine Sulfate (MoRPHine SULFATE INJ) 4 mg Q6H PRN IV 03/19/17 01:45 04/02/17 01:44 Albuterol/ Ipratropium (Duoneb) 3 ml Q2H PRN INH 03/19/17 02:00 04/18/17 01:59 Potassium Chloride/Sodium Chloride 1,000 ml @ 75 mls/hr [id number] IV 03/19/17 09:00 04/18/17 08:59 03/19/17 10:31 75 MLS/HR Famotidine 20 mg/ Dextrose 102 ml @ 204 mls/hr Q12@10,22 IV 03/19/17 10:00 04/18/17 09:59 03/19/17 10:31 204 MLS/HR Physical Exam Vital Signs (Past 24 Hrs): Date Time Temp Pulse Resp B/P (MAP) Pulse Ox O2 Delivery O2 Flow Rate FiO2 03/19/17 14:17 62 18 122/73 (89) 94 Room Air 03/19/17 14:15 60 14 94 03/19/17 14:09 57 95 03/19/17 13:15 64 19 92 03/19/17 13:01 65 15 91 03/19/17 13:00 36.7 59 17 166/95 (118) 94 Room Air 03/19/17 12:32 61 21 129/ (43) 94 Room Air 03/19/17 12:30 60 18 95 03/19/17 12:00 93 Room Air 03/19/17 12:00 55 14 138/77 (97) 93 Room Air 03/19/17 11:30 62 18 135/105 (115) 94 Room Air 03/19/17 11:05 61 16 129/96 (107) 94 03/19/17 11:02 58 18 129/96 (107) 95 Room Air 03/19/17 11:00 59 15 93 03/19/17 10:32 64 16 167/97 (120) 93 Room Air 03/19/17 10:30 68 20 93 03/19/17 10:01 59 18 161/94 (116) 92 Room Air 03/19/17 09:32 58 23 163/127 (139) 93 Room Air 03/19/17 09:30 55 15 95 03/19/17 09:02 60 16 125/91 (102) 96 Room Air 03/19/17 09:00 66 15 95 03/19/17 08:31 56 15 151/74 (99) 94 Room Air 03/19/17 08:30 57 15 93 03/19/17 08:01 57 15 136/68 (90) 91 Room Air 03/19/17 08:00 58 16 94 03/19/17 07:31 36.7 57 15 159/74 (102) 93 Room Air 03/19/17 07:30 94 Room Air 03/19/17 07:30 60 14 96 03/19/17 07:01 51 16 137/66 (89) 03/19/17 07:00 53 15 93 03/19/17 06:53 36.7 56 20 137/66 (89) 95 Room Air 03/19/17 06:23 36.6 50 18 139/71 (93) 96 Room Air 03/19/17 05:53 36.7 54 16 142/76 (98) 94 Room Air 03/19/17 05:23 36.9 52 14 150/74 (99) 94 Room Air 03/19/17 04:53 36.8 52 14 137/72 (93) 95 Room Air 03/19/17 04:23 58 15 178/80 (112) 96 Room Air 03/19/17 04:00 95 Room Air 03/19/17 03:53 36.7 52 20 120/60 (80) 94 Room Air 03/19/17 03:23 36.5 53 20 126/72 (90) 93 Room Air 03/19/17 03:08 36.5 54 17 140/71 (94) 95 Room Air 03/19/17 02:57 36.8 59 20 143/92 95 Room Air 03/19/17 02:53 36.7 55 20 143/83 (103) 94 Room Air 03/19/17 02:38 53 18 160/90 (113) 92 Room Air 03/19/17 02:23 53 20 143/77 (99) 94 Room Air 03/19/17 02:08 57 20 172/85 (114) 91 Room Air 03/19/17 01:55 59 19 148/117 (127) 93 Room Air 03/19/17 01:40 36.8 59 2 143/92 (109) 95 Room Air 03/19/17 01:21 59 169/90 96 Room Air 03/19/17 01:16 60 170/89 95 Room Air 03/19/17 01:11 58 158/88 96 Room Air 03/19/17 01:06 56 145/78 96 Room Air 03/19/17 01:01 57 143/79 95 Room Air 03/19/17 00:56 161/84 95 Room Air 03/19/17 00:51 151/92 96 Room Air 03/19/17 00:47 156/84 95 Room Air 03/19/17 00:46 57 96 Room Air 03/19/17 00:41 150/82 96 Room Air 03/19/17 00:36 155/94 95 Room Air 03/19/17 00:31 57 151/83 95 Room Air 03/19/17 00:26 58 158/90 95 Room Air 03/19/17 00:25 58 16 95 Room Air 03/19/17 00:22 59 16 152/81 95 Room Air 03/19/17 00:20 62 95 03/19/17 00:16 164/92 03/19/17 00:11 170/97 03/19/17 00:06 163/85 03/19/17 00:05 63 95 03/19/17 00:01 186/95 03/18/17 23:56 159/84 03/18/17 23:51 156/88 03/18/17 23:50 62 95 03/18/17 23:46 62 157/84 95 Room Air 03/18/17 23:42 63 148/68 96 Room Air 03/18/17 23:37 63 157/74 96 Room Air 03/18/17 23:34 165/83 03/18/17 23:33 96 Room Air 03/18/17 23:33 36.7 69 16 165/68 96 Room Air 03/18/17 23:30 70 96 03/18/17 23:29 68 Physical Exam: Constitutional: appearance nourished, healthy Ears, Nose, Mouth and Throat: mucous membranes moist, no injection and skin normal, eyes normal Cardiovascular: normal S-1 and S-2 and regular rate and rhythm Respiratory: clear to auscultation (CTA) and no rales, rhonchi or wheeze Musculoskeletal: no peripheral edema and good distal pulses Skin: no stigmata of neurocutaneous disease noted and normal and intact Eyes: extraocular muscles intact (EOMI) and pupils equal, round and reactive to light (PERRL), miotic NEUROLOGIC EXAMINATION: Mental status: Alert and interactive Oriented to [facility], able to say no ifs ands or buts Oriented to person Speech low speech volume Cranial Nerves flattening of nasal labial fold, facial droop on right, tongue midline Reflexes: Deep tendon reflexes were symmetrical and graded 2/5. Plantar responses were flexor. Sensory: no deficit to vibration, light touch GT proprioception intact Coordination: finger to nose with no bi pass Gait/Stance: Posture lying in bed Motor: Negative for pronator drift of out stretched arms with eyes closed. Strength: hand miller first biceps triceps 5/5 bilaterally hip flex plantar flex ext 5/5 bilaterally Laboratory Results Past 24 Hours: 03/19/17 05:25 Red Blood Count 4.46, Mean Corpuscular Volume 95.7, Mean Corpuscular Hemoglobin 32.1, Mean Corpuscular Hemoglobin Concent 33.5, Mean Platelet Volume 9.4, Neutrophils (%) (Auto) 64.4, Lymphocytes (%) (Auto) 19.8, Monocytes (%) (Auto) 7.2, Eosinophils (%) (Auto) 8.1, Basophils (%) (Auto) 0.4, Neutrophils # (Auto) 4.86, Lymphocytes # (Auto) 1.49, Monocytes # (Auto) 0.54, Eosinophils # (Auto) 0.61, Basophils # (Auto) 0.03 03/18/17 23:10 Test 03/18/17 23:10 03/18/17 23:29 03/19/17 00:04 03/19/17 05:25 Prothrombin Time 10.4 SECONDS (9.0-12.0) Prothromb Time International Ratio 1.0 (0.9-1.1) Activated Partial Thromboplast Time 26.8 SECONDS (21.0-31.0) Partial Thromboplastin Ratio 1.0 Est Creatinine Clear Calc Drug Dose 51.5 ml/min Estimated GFR () 66.3 Estimated GFR (Non- 57.2 BUN/Creatinine Ratio 11.5 (10-20) Calcium Level 8.2 mg/dl (8.5-10.1) Magnesium Level 2.3 mg/dl (1.8-2.4) Total Creatine Kinase 103 U/L (39-308) Creatine Kinase MB 0.9 ng/ml (0.5-3.6) Creatine Kinase MB Ratio 0.9 (0-3.0) Thyroid Stimulating Hormone (TSH) 4.020 uIu/ml (0.300-4.500) Bedside Glucose 123 mg/dl (70-99) Bedside Hemoglobin 16.0 g/dl (14.0-18.0) Bedside Hematocrit 47 % (42-52) Bedside Sodium 142 mEq/L (135-144) Bedside Potassium 3.9 mEq/L (3.3-5.0) Bedside Chloride 104 mEq/L (101-112) Bedside Total CO2 26 mEq/l (24-31) Anion Gap 17.0 mmol/L (16-25) Bedside Blood Urea Nitrogen 14 mg/dl (7-18) Bedside Creatinine 1.0 mg/dl (0.6-1.3) Bedside Glucose (other) 126 mg/dl (70-99) Bedside Ionized Calcium (Josette) 1.14 mmol/l (1.12-1.32) White Blood Count 7.54 K/uL (4.8-10.8) Red Blood Count 4.46 M/uL (4.7-6.1) Hemoglobin 14.3 g/dL (14.0-18.0) Hematocrit 42.7 % (42-52) Mean Corpuscular Volume 95.7 fL (80-100) Mean Corpuscular Hemoglobin 32.1 pg (25-34) Mean Corpuscular Hemoglobin Concent 33.5 g/dl (32-36) Platelet Count 184 K/uL (130-400) Mean Platelet Volume 9.4 fL (7.4-10.4) Neutrophils (%) (Auto) 64.4 % Lymphocytes (%) (Auto) 19.8 % Monocytes (%) (Auto) 7.2 % Eosinophils (%) (Auto) 8.1 % Basophils (%) (Auto) 0.4 % Neutrophils # (Auto) 4.86 K/uL (1.4-6.5) Lymphocytes # (Auto) 1.49 K/uL (1.2-3.4) Monocytes # (Auto) 0.54 K/uL (0.11-0.59) Eosinophils # (Auto) 0.61 K/uL (0-0.5) Basophils # (Auto) 0.03 K/uL (0-0.2) RDW Standard Deviation 47.9 fL (36.4-46.3) RDW Coefficient of Variation 13.7 % (11.5-14.5) Immature Granulocyte % (Auto) 0.1 % Immature Granulocyte # (Auto) 0.01 K/uL (0.00-0.02) Troponin I 0.512 ng/ml (0-0.045) Test 03/19/17 08:56 Date/Time Source Procedure Growth Status 03/19/17 02:21 Nasal MRSA DNA Surveillance Screen - Final Specimen Negative for MRSA by DNA Probe Complete Imaging MRI brain without- . No evidence of intracranial mass 2. 3 cm focus of restricted water diffusion within the left basal ganglia consistent with an acute infarct carotid doppler -No hemodynamically significant stenosis seen within the carotid arteries. MRA brain- No significant stenosis, occlusion, or aneurysm within the [place]. TTE * Normal LV chamber size with mild concentric LVH. * Normal LV systolic function, EF 60-65%. * No segmental left ventricular wall motion abnormalities are noted. * Grade I diastolic dysfunction. * Aortic valve sclerosis mild, without significant aortic valvular stenosis. * Possible atheromatous disease of the ascending aorta vs. artifact. Recommend CT of chest to further evaluate if clinically indicated. * Injection of contrast documented no interatrial shunt. Impression 81 year old male s/p acute ischemic event with tPA Plan 1. MRI - acute infarct no bleed 2. CT head per protocol - or if MS change 3. no carotid stenosis 4. TTE no ASD 5. failed plavix and aspirin will need to discuss treatment once protocol has passed for tPA administration 6. permissive HTN 7. PT/OT speech for discharge needs 8. LDL <70 , HTN optimize management 9. will need prolonged cardiac monitoring to r/o a fib or other rhythm abnormalities. I have seen and discussed above patient with Dr Desiree Catrer, neurology> Sudden onset of speech dysfunction and R hp. Pt came in time frame to receive TPA. feels he is improved today. Pt awake, alert, able to state name. Hypophonic, dysartrhicm mild to moderate word finding diff. Reps impaired, three step commands nml. No field cut, R central facial weakness. RUE nearly 4/5 , 3+ proximally, minimal weakness RLE, nml LT. Cerebellar slow on right but not dystaxic. Pt on dual antiplt tx (asa/plavix) from cardiology, no prior stroke or TIA. MRI brain large acute L BG infarct, mra head no high grade stenosis or carotid stenosis. Echo, pending, tele, no a fib. Will resume antiplt tx provided fu CT head in am shows no hemorrhagic infarct. Will try to review whether plavix needs to be continued (last stent 2 yrs ago) otherwise will likely start aggrenox . Given relatively large size of infarct, although deep I would recommend a cardionet as an outpt. PATRICK Carter MD
[2017-03-20] VITALS (20 sets, daily range): BP systolic 101–181; BP diastolic 50–95; PULSE 49–73; TEMP 36.5–37; O2SAT 90–95
[2017-03-20 05:56] LABS: HEMATOCRIT 44.6 % (42-52); MEAN CELL VOLUME 95.7 fL (80-100); MEAN CORPUSCULAR HEMOGLOBIN 31.8 pg (25-34); MEAN CORPUSCULAR HGB CONC 33.2 g/dl (32-36); MEAN PLATELET VOLUME 9.1 fL (7.4-10.4); PLATELET COUNT 186 K/uL (130-400); RED BLOOD COUNT 4.66 M/uL (4.7-6.1); WHITE BLOOD COUNT 9.23 K/uL (4.8-10.8)
[2017-03-20 06:31] LABS: CALCIUM 8.2 mg/dl (8.5-10.1); CREATININE 0.96 mg/dl (0.60-1.40); MAGNESIUM 2.2 mg/dl (1.8-2.4); POTASSIUM 4.1 mmol/L (3.5-5.1)
[2017-03-20 06:36] LABS: CHOLESTEROL/HDL RATIO 2.5; PHOSPHORUS 2.5 mg/dl (2.5-4.9)
--- NOTE | 2017-03-20 07:10 | DIAGNOSTIC IMAGING REPORT ---
HEAD CT NONCONTRAST CT DOSE: 614.27 mGy.cm HISTORY: Mental status change Day 2 Stroke with TPA TECHNIQUE: Multiaxial CT images of the head were performed without the use of intravenous contrast. Comparison: 03/18/2017 Findings: The paranasal sinuses and mastoid air cells are clear. Findings of subacute infarct left external capsule measuring 3 x 2.5 cm. No evidence for acute intracranial hemorrhage. No midline shift. Ventricular system is midline. Impression: Left periventricular infarct similar to the patient's prior MRI exam. No evidence for acute intracranial hemorrhage. Electronically signed by: Peter Peralta M.D. 03/20/2017 7:09 AM Dictated Date/Time: 03/20/2017 7:07 AM
[2017-03-20] MEDS: ATORVASTATIN 40 MG TAB PO SCH (07:37)
[2017-03-20 07:47] LABS: ESTIMATED AVERAGE GLUCOSE 120 mg/dl; HA1C FLAG Normal (Normal)
--- NOTE | 2017-03-20 08:58 | Progress Note ---
Subjective Date of Service: Mar 20, 2017. Subjective Pt evaluation today including: conversation w/ patient, physical exam, lab review, review of studies, review of inpatient medication list Saw/examined the patient in room 101 Has difficulty finding words, but is conversing better today; asked me what the next step is; I told him continued therapy and tele monitoring for now Wondering about discharge planning and when he will go to rehab denies pain States he's doing okay No acute issues overnight Problem List Medical Problems: (1) Acute CVA (cerebrovascular accident) Status: Acute Review of Systems Constitutional: + weakness Respiratory: No cough, No sputum, No wheezing, No shortness of breath, No dyspnea on exertion Cardiac: No chest pain, No edema, No palpitations Abdomen: No pain, No nausea, No vomiting, No diarrhea Musculoskeletal: No joint pain Neurologic: + weakness, No memory loss, No numbness/tingling, No vertigo, No balance problems Heme: No abnormal bleeding/bruising Medications Current Inpatient Medications Medications (Trade) Dose Ordered Sig/Minna Route Start Time Stop Time Status Last Admin Dose Admin Atorvastatin Calcium (Lipitor Tab) 40 mg DAILY PO 03/19/17 09:00 04/18/17 08:59 03/20/17 07:37 40 MG Acetaminophen (Tylenol Tab) 650 mg Q4H PRN PO 03/19/17 01:45 04/18/17 01:44 Nitroglycerin (Nitrostat Tab) 0.4 mg UD PRN SL 03/19/17 01:45 04/18/17 01:44 Miscellaneous Information (Pharmacist Discharge Med Rec Consult) 1 ea UD PRN N/A 03/19/17 01:45 04/18/17 01:44 Ondansetron HCl (Zofran Inj) 4 mg Q6H PRN IV 03/19/17 01:45 04/18/17 01:44 Tramadol HCl (Ultram Tab) 25 mg Q6H PRN PO 03/19/17 01:45 04/18/17 01:44 Morphine Sulfate (MoRPHine SULFATE INJ) 4 mg Q6H PRN IV 03/19/17 01:45 04/02/17 01:44 Albuterol/ Ipratropium (Duoneb) 3 ml Q2H PRN INH 03/19/17 02:00 04/18/17 01:59 Potassium Chloride/Sodium Chloride 1,000 ml @ 75 mls/hr [id number] IV 03/19/17 09:00 04/18/17 08:59 03/19/17 10:31 75 MLS/HR Aspirin (Ecotrin Tab) 81 mg DAILY PO 03/20/17 09:00 04/19/17 08:59 UNV Clopidogrel Bisulfate (plAVix TAB) 75 mg DAILY PO 03/20/17 09:00 04/19/17 08:59 UNV Losartan Potassium (coZAAR TAB) 25 mg DAILY PO 03/20/17 09:00 04/19/17 08:59 UNV Objective Vital Signs Date Time Temp Pulse Resp B/P (MAP) Pulse Ox O2 Delivery O2 Flow Rate FiO2 03/20/17 04:00 94 Room Air 03/20/17 03:25 36.7 50 14 146/75 (98) 95 Room Air 03/20/17 02:00 49 13 101/50 (67) 93 Room Air 03/20/17 01:00 51 16 116/67 (83) 03/20/17 00:00 36.7 52 10 129/75 (93) 94 Room Air 03/19/17 23:59 94 Room Air 03/19/17 23:00 46 16 129/73 (91) 94 Room Air 03/19/17 22:23 54 18 128/68 (88) 91 Room Air 03/19/17 21:23 64 18 118/68 (85) 94 Room Air 03/19/17 20:23 55 18 143/79 (100) 93 Room Air 03/19/17 20:00 93 Room Air 03/19/17 19:23 58 18 140/82 (101) 96 Room Air 03/19/17 18:23 57 18 128/77 (94) 92 Room Air 03/19/17 17:23 64 18 148/102 (117) 93 Room Air 03/19/17 16:23 62 16 130/68 (88) 93 03/19/17 16:00 37.1 66 16 130/68 (88) 93 Room Air 03/19/17 16:00 93 Room Air 03/19/17 15:23 59 17 169/92 (117) 93 03/19/17 15:00 57 16 169/92 (117) 92 Room Air 03/19/17 14:17 62 18 122/73 (89) 94 Room Air 03/19/17 14:15 60 14 94 03/19/17 14:09 57 95 03/19/17 13:15 64 19 92 03/19/17 13:01 65 15 91 03/19/17 13:00 36.7 59 17 166/95 (118) 94 Room Air 03/19/17 12:32 61 21 129/ (43) 94 Room Air 03/19/17 12:30 60 18 95 03/19/17 12:00 93 Room Air 03/19/17 12:00 55 14 138/77 (97) 93 Room Air 03/19/17 11:30 62 18 135/105 (115) 94 Room Air 03/19/17 11:05 61 16 129/96 (107) 94 03/19/17 11:02 58 18 129/96 (107) 95 Room Air 03/19/17 11:00 59 15 93 03/19/17 10:32 64 16 167/97 (120) 93 Room Air 03/19/17 10:30 68 20 93 03/19/17 10:01 59 18 161/94 (116) 92 Room Air 03/19/17 09:32 58 23 163/127 (139) 93 Room Air 03/19/17 09:30 55 15 95 03/19/17 09:02 60 16 125/91 (102) 96 Room Air 03/19/17 09:00 66 15 95 Physical Exam General Appearance: no apparent distress Respiratory/Chest: chest non-tender, lungs clear, normal breath sounds, no respiratory distress, no accessory muscle use Cardiovascular: regular rate, rhythm, no edema, no gallop, no JVD, no murmur Abdomen: normal bowel sounds, non tender, soft Extremities: normal range of motion, non-tender, normal inspection, no pedal edema, no calf tenderness Neurologic/Psychiatric: alert, + pertinent finding (R sided facial droop; word finding difficulty) Laboratory Results Last 24 Hours Test 03/20/17 05:29 White Blood Count 9.23 K/uL Red Blood Count 4.66 M/uL Hemoglobin 14.8 g/dL Hematocrit 44.6 % Mean Corpuscular Volume 95.7 fL Mean Corpuscular Hemoglobin 31.8 pg Mean Corpuscular Hemoglobin Concent 33.2 g/dl RDW Standard Deviation 48.4 fL RDW Coefficient of Variation 13.9 % Platelet Count 186 K/uL Mean Platelet Volume 9.1 fL Sodium Level 142 mmol/L Potassium Level 4.1 mmol/L Chloride Level 110 mmol/L Carbon Dioxide Level 24 mmol/L Anion Gap 8.0 mmol/L Blood Urea Nitrogen 14 mg/dl Creatinine 0.96 mg/dl Est Creatinine Clear Calc Drug Dose 64.4 ml/min Estimated GFR () 86.8 Estimated GFR (Non- 74.9 BUN/Creatinine Ratio 15.0 Random Glucose 90 mg/dl Estimated Average Glucose 120 mg/dl Hemoglobin A1c 5.8 % Calcium Level 8.2 mg/dl Phosphorus Level 2.5 mg/dl Magnesium Level 2.2 mg/dl Total Bilirubin 1.3 mg/dl Aspartate Amino Transf (AST/SGOT) 15 U/L Alanine Aminotransferase (ALT/SGPT) 24 U/L Alkaline Phosphatase 68 U/L Total Protein 6.1 gm/dl Albumin 3.0 gm/dl Globulin 3.1 gm/dl Albumin/Globulin Ratio 1.0 Triglycerides Level 80 mg/dl Cholesterol Level 117 mg/dl HDL Cholesterol 46 mg/dl LDL Cholesterol, Calculated 55 mg/dl VLDL Cholesterol, Calculated 16 mg/dl Cholesterol/HDL Ratio 2.5 Assessment and Plan This is a 81 year old male with a PMH of CAD s/p stenting, diastolic CHF, HTN, HLD, chronic bradycardia presents with L basal ganglia infarct Acute L Basal Ganglia Infarct 03/[address] = negative for any bleeding will need continued PT/OT/speech continued tele monitoring for now discharge planning to rehab appreciate neuro input for any additional management will need outpatient cardionet continue aspirin/Plavix today, which has been ordered 03/19 expressive aphasia and right sided facial droop noted s/p tPA on 03/18 symptoms persist today (03/19) speech evaluation performed, aspiration precautions, mechanical soft diet - continue speech therapy PT/OT pending aquarium specialist and neurologist consulted will monitor for blood pressure, to keep SBP < 185, no aspirin/Plavix x24 hours CAD s/p stenting continue aspirin, Plavix on 03/20 (no bleeding noted on repeat head CT) continue statin HTN monitor BP goal SBP < 185 due to tPA use continue Cozaar DVT ppx s/p tPA restart aspirin + Plavix FULL CODE
[2017-03-20] MEDS ORDERED: ASPIRIN 81 MG ECTAB PO SCH (09:00)
--- NOTE | 2017-03-20 09:37 | Critical Care Progress Note ---
Critical Care Progress Note Date of Service Mar 20, 2017. ICU Day ICU Day Number: [address] Subjective Patient is still unable to converse however he is able to state and spell his name shakes his head when he is asked if he is in pain limited ROS as patient unable to converse Objective General: resting in bed, not in acute distress Skin: no rashes noted, no suspicious lesions, no areas of inflammations/ lacerations/ erythema noted CVS: S1/ S2 noted, RRR, no rubs/ murmurs noted, no cyanosis RVS: not in acute respiratory distress, no wheezing/ rales/ crackles noted, decreased to bilat bases ENT: no erythema/ injection/ ulcerations noted in the pharynx, facial drooping on right side Neck: inspection WNL, full ROM of neck, no bruits noted ABD: BSx4, no pain/ tenderness on palpation, no organomegaly MSK: inspection of all limbs WNL, motor and sensation intact in all limbs however the right UE is 4/5 compared to 5/5 on left , no swelling/ pain on palpation of joints NVS: CN ii-xii WNL except for facial drooping of the right side, PERRL, EOMI, sensation intact in all extremities Lymph: No lymphadenopathy palpable Current SOFA Score SOFA Score Response (Comments) Value Platelets (x10) > 150 0 Bilirubin (mg/dL) < 1.2 0 Corin Coma Score 15 0 Level of Hypotension No Hypotension 0 Creatinine (mg/dL) < 1.2 0 Total 0 Assessment & Plan 1. S/P TPA administration day 2 for acute CVA, left basal ganglia 2. CAD s/p DE 3. Elevated troponin most likely supply and demand 4. Hyperlipidemia 5. HTN NVS - continue to monitor per stroke protocol, NIH scale and neurochecks - MRI/ MRA head - left basal ganglia lesion - patient failed dysphagia screen, currently on mechanical soft diet - fall precautions - Carotid doppler WNL - pending [address] head- no acute hemm - ASA and plavix cont'd - possible Aggrenox RVS - O2 per nursing protocol CVS - continue to monitor - NSR currently - Troponin has peaked and reflected supply and demand - continue losartan - FLP LDL 55 with goal of < 70 - Atorvastatin 40 mg, consider increasing to 80 mg if not contraindicated GI - mechanical soft diet - Famotidine d/c - Continue to monitor I&O ENDO BSG AC HS A1C- 5.8 HEME - continue to monitor for signs of bleeding - continue to follow CBC DVT Prophylaxis -SCD Resident Physician Supervision Note: Dr. Maxwell was resident physician during care of patient. I separately evaluated patient and did history and exam. I discussed the case with the resident and generally agree with the findings and plan. Stable for out of bed to chair, PT OT consulted, mechanical soft diet, mild improvement of NH stroke scale 6-4, restart losartan. Likely transfer to [facility] for acute stroke rehabilitation Stable for downgraded out of unit today Documented By: William Street DO Consults & Procedures Consultants: Neurology Procedures: TPA administration Data Medications: Current Inpatient Medications Medications (Trade) Dose Ordered Sig/Minna Route Start Time Stop Time Status Last Admin Dose Admin Atorvastatin Calcium (Lipitor Tab) 40 mg DAILY PO 03/19/17 09:00 04/18/17 08:59 03/20/17 07:37 40 MG Acetaminophen (Tylenol Tab) 650 mg Q4H PRN PO 03/19/17 01:45 04/18/17 01:44 Nitroglycerin (Nitrostat Tab) 0.4 mg UD PRN SL 03/19/17 01:45 04/18/17 01:44 Miscellaneous Information (Pharmacist Discharge Med Rec Consult) 1 ea UD PRN N/A 03/19/17 01:45 04/18/17 01:44 Ondansetron HCl (Zofran Inj) 4 mg Q6H PRN IV 03/19/17 01:45 04/18/17 01:44 Tramadol HCl (Ultram Tab) 25 mg Q6H PRN PO 03/19/17 01:45 04/18/17 01:44 Morphine Sulfate (MoRPHine SULFATE INJ) 4 mg Q6H PRN IV 03/19/17 01:45 04/02/17 01:44 Albuterol/ Ipratropium (Duoneb) 3 ml Q2H PRN INH 03/19/17 02:00 04/18/17 01:59 Potassium Chloride/Sodium Chloride 1,000 ml @ 75 mls/hr [id number] IV 03/19/17 09:00 04/18/17 08:59 03/19/17 10:31 75 MLS/HR Aspirin (Ecotrin Tab) 81 mg DAILY PO 03/20/17 09:00 04/19/17 08:59 UNV Clopidogrel Bisulfate (plAVix TAB) 75 mg DAILY PO 03/20/17 09:00 04/19/17 08:59 UNV Losartan Potassium (coZAAR TAB) 25 mg DAILY PO 03/20/17 09:00 04/19/17 08:59 UNV Vital Signs: Date Time Temp Pulse Resp B/P (MAP) Pulse Ox O2 Delivery O2 Flow Rate FiO2 03/20/17 08:30 93 Room Air 03/20/17 04:00 94 Room Air 03/20/17 03:25 36.7 50 14 146/75 (98) 95 Room Air 03/20/17 02:00 49 13 101/50 (67) 93 Room Air 03/20/17 01:00 51 16 116/67 (83) 03/20/17 00:00 36.7 52 10 129/75 (93) 94 Room Air 03/19/17 23:59 94 Room Air 03/19/17 23:00 46 16 129/73 (91) 94 Room Air 03/19/17 22:23 54 18 128/68 (88) 91 Room Air 03/19/17 21:23 64 18 118/68 (85) 94 Room Air 03/19/17 20:23 55 18 143/79 (100) 93 Room Air 03/19/17 20:00 93 Room Air 03/19/17 19:23 58 18 140/82 (101) 96 Room Air 03/19/17 18:23 57 18 128/77 (94) 92 Room Air 03/19/17 17:23 64 18 148/102 (117) 93 Room Air 03/19/17 16:23 62 16 130/68 (88) 93 03/19/17 16:00 37.1 66 16 130/68 (88) 93 Room Air 03/19/17 16:00 93 Room Air 03/19/17 15:23 59 17 169/92 (117) 93 03/19/17 15:00 57 16 169/92 (117) 92 Room Air 03/19/17 14:17 62 18 122/73 (89) 94 Room Air 03/19/17 14:15 60 14 94 03/19/17 14:09 57 95 03/19/17 13:15 64 19 92 03/19/17 13:01 65 15 91 03/19/17 13:00 36.7 59 17 166/95 (118) 94 Room Air 03/19/17 12:32 61 21 129/ (43) 94 Room Air 03/19/17 12:30 60 18 95 03/19/17 12:00 93 Room Air 03/19/17 12:00 55 14 138/77 (97) 93 Room Air 03/19/17 11:30 62 18 135/105 (115) 94 Room Air 03/19/17 11:05 61 16 129/96 (107) 94 03/19/17 11:02 58 18 129/96 (107) 95 Room Air 03/19/17 11:00 59 15 93 03/19/17 10:32 64 16 167/97 (120) 93 Room Air 03/19/17 10:30 68 20 93 03/19/17 10:01 59 18 161/94 (116) 92 Room Air 03/19/17 09:32 58 23 163/127 (139) 93 Room Air Laboratory Results: Last 24 Hours Test 03/20/17 05:29 White Blood Count 9.23 K/uL Red Blood Count 4.66 M/uL Hemoglobin 14.8 g/dL Hematocrit 44.6 % Mean Corpuscular Volume 95.7 fL Mean Corpuscular Hemoglobin 31.8 pg Mean Corpuscular Hemoglobin Concent 33.2 g/dl RDW Standard Deviation 48.4 fL RDW Coefficient of Variation 13.9 % Platelet Count 186 K/uL Mean Platelet Volume 9.1 fL Sodium Level 142 mmol/L Potassium Level 4.1 mmol/L Chloride Level 110 mmol/L Carbon Dioxide Level 24 mmol/L Anion Gap 8.0 mmol/L Blood Urea Nitrogen 14 mg/dl Creatinine 0.96 mg/dl Est Creatinine Clear Calc Drug Dose 64.4 ml/min Estimated GFR () 86.8 Estimated GFR (Non- 74.9 BUN/Creatinine Ratio 15.0 Random Glucose 90 mg/dl Estimated Average Glucose 120 mg/dl Hemoglobin A1c 5.8 % Calcium Level 8.2 mg/dl Phosphorus Level 2.5 mg/dl Magnesium Level 2.2 mg/dl Total Bilirubin 1.3 mg/dl Aspartate Amino Transf (AST/SGOT) 15 U/L Alanine Aminotransferase (ALT/SGPT) 24 U/L Alkaline Phosphatase 68 U/L Total Protein 6.1 gm/dl Albumin 3.0 gm/dl Globulin 3.1 gm/dl Albumin/Globulin Ratio 1.0 Triglycerides Level 80 mg/dl Cholesterol Level 117 mg/dl HDL Cholesterol 46 mg/dl LDL Cholesterol, Calculated 55 mg/dl VLDL Cholesterol, Calculated 16 mg/dl Cholesterol/HDL Ratio 2.5
[2017-03-20] MEDS: LOSARTAN POTASSIUM 25 MG TAB PO SCH (15:59)
[2017-03-20] MEDS: CLOPIDOGREL BISULFATE 75 MG TAB PO SCH (15:59)
--- NOTE | 2017-03-20 17:15 | Neurology Progress Notes ---
Neurology Progress Note Date of Service Mar 20, 2017. Suzan Ponce is a 81 year old male who has a H heart attack with 2 bi pass surgeries , hyperlipidemia. He was sitting at the table eating dinner and his gave amina a doughnut for dessert. He took a bite out of the donut and then started starring at it. He had a facial droop and was unable to form his words. He was brought to the ED and a stroke alert was called and was given tPA with some initial improvement in symptoms. There was no complaint of weakness, numbness, tingling, N, V. He was already taking plavix 75 mg and aspirin 81 mg daily since his cardiac surgeries. He has no prior history of stroke and has never smokes, drink EtOH does drink some caffeine. He has no history of irregular heart beat/afib. Today he is sitting up in bed. He nods when asked if PT has been in to see him. He is still eating and drinking well no issues. He doesn't want to answer questions and cries easily. Objective Date Time Temp Pulse Resp B/P (MAP) Pulse Ox O2 Delivery O2 Flow Rate FiO2 03/20/17 15:12 Room Air 03/20/17 12:40 36.9 60 16 120/63 (82) 95 Room Air 03/20/17 12:17 Room Air 03/20/17 11:11 91 Room Air 03/20/17 11:00 58 13 140/72 (94) 94 Room Air 03/20/17 10:30 57 15 94 03/20/17 10:03 69 17 129/74 (92) 94 Room Air 03/20/17 10:00 62 17 127/77 (94) 03/20/17 09:30 52 11 93 Room Air 03/20/17 09:13 57 92 03/20/17 09:00 73 16 174/95 (121) 90 03/20/17 08:30 52 14 92 03/20/17 08:30 93 Room Air 03/20/17 08:00 37.0 56 17 146/75 (98) 92 Room Air 03/20/17 07:30 68 18 92 03/20/17 04:00 94 Room Air 03/20/17 03:25 36.7 50 14 146/75 (98) 95 Room Air 03/20/17 02:00 49 13 101/50 (67) 93 Room Air 03/20/17 01:00 51 16 116/67 (83) 03/20/17 00:00 36.7 52 10 129/75 (93) 94 Room Air 03/19/17 23:59 94 Room Air 03/19/17 23:00 46 16 129/73 (91) 94 Room Air 03/19/17 22:23 54 18 128/68 (88) 91 Room Air 03/19/17 21:23 64 18 118/68 (85) 94 Room Air 03/19/17 20:23 55 18 143/79 (100) 93 Room Air 03/19/17 20:00 93 Room Air 03/19/17 19:23 58 18 140/82 (101) 96 Room Air 03/19/17 18:23 57 18 128/77 (94) 92 Room Air 03/19/17 17:23 64 18 148/102 (117) 93 Room Air Last 24 Hours Test 03/20/17 05:29 White Blood Count 9.23 K/uL Red Blood Count 4.66 M/uL Hemoglobin 14.8 g/dL Hematocrit 44.6 % Mean Corpuscular Volume 95.7 fL Mean Corpuscular Hemoglobin 31.8 pg Mean Corpuscular Hemoglobin Concent 33.2 g/dl RDW Standard Deviation 48.4 fL RDW Coefficient of Variation 13.9 % Platelet Count 186 K/uL Mean Platelet Volume 9.1 fL Sodium Level 142 mmol/L Potassium Level 4.1 mmol/L Chloride Level 110 mmol/L Carbon Dioxide Level 24 mmol/L Anion Gap 8.0 mmol/L Blood Urea Nitrogen 14 mg/dl Creatinine 0.96 mg/dl Est Creatinine Clear Calc Drug Dose 64.4 ml/min Estimated GFR () 86.8 Estimated GFR (Non- 74.9 BUN/Creatinine Ratio 15.0 Random Glucose 90 mg/dl Estimated Average Glucose 120 mg/dl Hemoglobin A1c 5.8 % Calcium Level 8.2 mg/dl Phosphorus Level 2.5 mg/dl Magnesium Level 2.2 mg/dl Total Bilirubin 1.3 mg/dl Aspartate Amino Transf (AST/SGOT) 15 U/L Alanine Aminotransferase (ALT/SGPT) 24 U/L Alkaline Phosphatase 68 U/L Total Protein 6.1 gm/dl Albumin 3.0 gm/dl Globulin 3.1 gm/dl Albumin/Globulin Ratio 1.0 Triglycerides Level 80 mg/dl Cholesterol Level 117 mg/dl HDL Cholesterol 46 mg/dl LDL Cholesterol, Calculated 55 mg/dl VLDL Cholesterol, Calculated 16 mg/dl Cholesterol/HDL Ratio 2.5 Imaging: CT head- repeated this am-Left periventricular infarct similar to the patient's prior MRI exam. No evidence for acute intracranial hemorrhage. Exam: Physical Exam: Constitutional: appearance nourished, healthy and normal Ears, Nose, Mouth and Throat: mucous membranes moist, no injection and skin normal, eyes normal Cardiovascular: normal S-1 and S-2 and regular rate and rhythm Respiratory: clear to auscultation (CTA) and no rales, rhonchi or wheeze Musculoskeletal: no peripheral edema and good distal pulses Skin: no stigmata of neurocutaneous disease noted and normal and intact Eyes: extraocular muscles intact (EOMI) and pupils equal, round and reactive to light (PERRL) NEUROLOGIC EXAMINATION: Mental status: Alert and interactive Oriented does not want to answer questions keep saying he doesn't know Oriented to person Speech hypophonic and dysphasia with words Cranial Nerves right sided facial droop. tongue right flannery deviation, eye brow raise symmetric Reflexes: Deep tendon reflexes were symmetrical and graded 2/5. Plantar responses were flexor. 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 4/5, right hip flex 4/5, left hand performing arts technicians biceps triceps 5/5, hip flex 5/5 Current Inpatient Medications Medications (Trade) Dose Ordered Sig/Minna Route Start Time Stop Time Status Last Admin Dose Admin Atorvastatin Calcium (Lipitor Tab) 40 mg DAILY PO 03/19/17 09:00 04/18/17 08:59 03/20/17 07:37 40 MG Acetaminophen (Tylenol Tab) 650 mg Q4H PRN PO 03/19/17 01:45 04/18/17 01:44 Nitroglycerin (Nitrostat Tab) 0.4 mg UD PRN SL 03/19/17 01:45 04/18/17 01:44 Miscellaneous Information (Pharmacist Discharge Med Rec Consult) 1 ea UD PRN N/A 03/19/17 01:45 04/18/17 01:44 Ondansetron HCl (Zofran Inj) 4 mg Q6H PRN IV 03/19/17 01:45 04/18/17 01:44 Tramadol HCl (Ultram Tab) 25 mg Q6H PRN PO 03/19/17 01:45 04/18/17 01:44 Morphine Sulfate (MoRPHine SULFATE INJ) 4 mg Q6H PRN IV 03/19/17 01:45 04/02/17 01:44 Albuterol/ Ipratropium (Duoneb) 3 ml Q2H PRN INH 03/19/17 02:00 04/18/17 01:59 Aspirin (Ecotrin Tab) 81 mg DAILY PO 03/20/17 09:00 04/19/17 08:59 03/20/17 16:00 81 MG Clopidogrel Bisulfate (plAVix TAB) 75 mg DAILY PO 03/20/17 09:00 04/19/17 08:59 03/20/17 15:59 75 MG Losartan Potassium (coZAAR TAB) 25 mg DAILY PO 03/20/17 09:00 04/19/17 08:59 03/20/17 15:59 25 MG Impression 81 year old male s/p acute ischemic event with tPA Plan 1. MRI - acute infarct no bleed 2. CT head per protocol - or if MS change 3. no carotid stenosis 4. TTE no ASD 5. failed plavix and aspirin contacted his cardiology team to ask for advise with plavix and aspirin or change to another medication 6. permissive HTN 7. PT/OT speech for discharge needs 8. LDL <70 , HTN optimize management- after 48 hours 9. will need prolonged cardiac monitoring to r/o a fib or other rhythm abnormalities. was done in the past will repeat as out patient 10. speech PT/OT for discharge needs 11. will continue to follow neurology follow up as out patient 2-3 weeks after rehab, Desiree Johnston PAC schedule I have seen and discussed above patient with Dr Desiree Carter, neurology Pt seen and examined,. Speech is clearer, increased volume, less word finding difficulty, mild R arm weakness. I spoke with Dr Brito, cardiol and it is preferable to keep pt on Plavix. I will increase aspirin dose to 162 mg/d. REc cardionet as outpt PATRICK Carter MD
[2017-03-21 03:45] VITALS: BP 133/67; PULSE 52; TEMP 36.7; O2SAT 97
[2017-03-21 06:55] LABS: HEMATOCRIT 44.4 % (42-52); MEAN CELL VOLUME 96.1 fL (80-100); MEAN CORPUSCULAR HEMOGLOBIN 32.3 pg (25-34); MEAN CORPUSCULAR HGB CONC 33.6 g/dl (32-36); MEAN PLATELET VOLUME 9.3 fL (7.4-10.4); PLATELET COUNT 179 K/uL (130-400); RED BLOOD COUNT 4.62 M/uL (4.7-6.1); WHITE BLOOD COUNT 7.85 K/uL (4.8-10.8)
[2017-03-21 07:23] LABS: BUN/CREATININE RATIO 18.4 (10-20); CALCIUM 8.2 mg/dl (8.5-10.1); CREATININE 0.98 mg/dl (0.60-1.40); MAGNESIUM 2.3 mg/dl (1.8-2.4)
[2017-03-21 08:01] VITALS: BP 134/71; PULSE 57; TEMP 36.9; O2SAT 94
[2017-03-21] MEDS: ATORVASTATIN 40 MG TAB PO SCH (08:06)
[2017-03-21] MEDS: CLOPIDOGREL BISULFATE 75 MG TAB PO SCH (08:15)
[2017-03-21] MEDS: LOSARTAN POTASSIUM 25 MG TAB PO SCH (08:16)
[2017-03-21] MEDS ORDERED: ASPIRIN 81 MG ECTAB PO SCH (09:00)
--- NOTE | 2017-03-21 11:19 | Progress Note ---
Subjective Date of Service: Mar 21, 2017. Subjective Pt evaluation today including: conversation w/ patient, physical exam, lab review, review of studies, review of inpatient medication list Saw/examined the patient in room 241 he's doing well, improving his speech, facial droop improving still having word finding difficulty and difficulty with speech, but improving Problem List Medical Problems: (1) Acute CVA (cerebrovascular accident) Status: Acute Review of Systems Constitutional: No fever, No chills Respiratory: No cough, No sputum, No shortness of breath Cardiac: No chest pain, No edema, No palpitations Neurologic: + problem reported (speech problems), No weakness, No numbness/ tingling, No vertigo, No balance problems Medications Current Inpatient Medications Medications (Trade) Dose Ordered Sig/Minna Route Start Time Stop Time Status Last Admin Dose Admin Atorvastatin Calcium (Lipitor Tab) 40 mg DAILY PO 03/19/17 09:00 04/18/17 08:59 03/21/17 08:06 40 MG Acetaminophen (Tylenol Tab) 650 mg Q4H PRN PO 03/19/17 01:45 04/18/17 01:44 Nitroglycerin (Nitrostat Tab) 0.4 mg UD PRN SL 03/19/17 01:45 04/18/17 01:44 Miscellaneous Information (Pharmacist Discharge Med Rec Consult) 1 ea UD PRN N/A 03/19/17 01:45 04/18/17 01:44 Ondansetron HCl (Zofran Inj) 4 mg Q6H PRN IV 03/19/17 01:45 04/18/17 01:44 Tramadol HCl (Ultram Tab) 25 mg Q6H PRN PO 03/19/17 01:45 04/18/17 01:44 Morphine Sulfate (MoRPHine SULFATE INJ) 4 mg Q6H PRN IV 03/19/17 01:45 04/02/17 01:44 Albuterol/ Ipratropium (Duoneb) 3 ml Q2H PRN INH 03/19/17 02:00 04/18/17 01:59 Clopidogrel Bisulfate (plAVix TAB) 75 mg DAILY PO 03/20/17 09:00 04/19/17 08:59 03/21/17 08:15 75 MG Losartan Potassium (coZAAR TAB) 25 mg DAILY PO 6/21/17 09:00 04/19/17 08:59 03/21/17 08:16 25 MG Aspirin (Ecotrin Tab) 162 mg DAILY PO 03/21/17 09:00 04/19/17 08:59 03/21/17 08:06 162 MG Objective Vital Signs Date Time Temp Pulse Resp B/P (MAP) Pulse Ox O2 Delivery O2 Flow Rate FiO2 03/21/17 08:01 36.9 57 16 134/71 (92) 94 03/21/17 08:00 Room Air 03/21/17 04:00 Room Air 03/21/17 03:45 36.7 52 17 133/67 (89) 97 Room Air 03/21/17 00:00 Room Air 03/20/17 23:26 36.5 60 17 139/67 (91) 93 Room Air 03/20/17 20:05 37.0 58 18 136/63 (87) 94 Room Air 03/20/17 20:00 Room Air 03/20/17 17:46 36.9 58 18 181/78 (112) 94 Room Air 03/20/17 15:12 Room Air 03/20/17 12:40 36.9 60 16 120/63 (82) 95 Room Air 03/20/17 12:17 Room Air Physical Exam General Appearance: no apparent distress Respiratory/Chest: lungs clear, normal breath sounds, no respiratory distress, no accessory muscle use Cardiovascular: regular rate, rhythm, no edema, no murmur Neurologic/Psychiatric: + pertinent finding (R sided facial droop, slightly improving; word finding difficulty; improving speech and conversation) Laboratory Results Last 24 Hours Test 03/21/17 06:23 White Blood Count 7.85 K/uL Red Blood Count 4.62 M/uL Hemoglobin 14.9 g/dL Hematocrit 44.4 % Mean Corpuscular Volume 96.1 fL Mean Corpuscular Hemoglobin 32.3 pg Mean Corpuscular Hemoglobin Concent 33.6 g/dl RDW Standard Deviation 48.9 fL RDW Coefficient of Variation 14.0 % Platelet Count 179 K/uL Mean Platelet Volume 9.3 fL Sodium Level 143 mmol/L Potassium Level 4.0 mmol/L Chloride Level 111 mmol/L Carbon Dioxide Level 26 mmol/L Anion Gap 6.0 mmol/L Blood Urea Nitrogen 18 mg/dl Creatinine 0.98 mg/dl Est Creatinine Clear Calc Drug Dose 63.1 ml/min Estimated GFR () 84.6 Estimated GFR (Non- 73.0 BUN/Creatinine Ratio 18.4 Random Glucose 90 mg/dl Calcium Level 8.2 mg/dl Magnesium Level 2.3 mg/dl Assessment and Plan This is a 81 year old male with a PMH of CAD s/p stenting, diastolic CHF, HTN, HLD, chronic bradycardia presents with L basal ganglia infarct Acute L Basal Ganglia Infarct 03/21 appreciate neurology input plan is to discharge to [facility] today he will received PT/OT/speech therapy at aspirin to increase to 162mg from 81mg 03/[address] = negative for any bleeding will need continued PT/OT/speech continued tele monitoring for now discharge planning to rehab appreciate neuro input for any additional management will need outpatient cardionet continue aspirin/Plavix today, which has been ordered 03/19 expressive aphasia and right sided facial droop noted s/p tPA on 03/18 symptoms persist today (03/19) speech evaluation performed, aspiration precautions, mechanical soft diet - continue speech therapy PT/OT pending 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
[2017-03-21] MEDS ORDERED: ASPI81TA28 PO (11:20)
--- NOTE | 2017-03-21 11:23 | Discharge Instructions ---
Discharge Instructions Date of Service Mar 21, 2017. Admission Reason for Admission: Stroke Discharge Discharge Diagnosis / Problem: Acute L Basal Ganglia Infarct s/p tPA Discharge Goals Goal(s): Decrease discomfort, Improve function, Diagnostic testing, Therapeutic intervention Activity Recommendations Activity Limitations: resume your previous activity . Instructions / Follow-Up Instructions / Follow-Up Risk Factors for Stroke: You can reduce your chances of stroke by working with your medical provider to adopt a healthy lifestyle. Some specific ways to lower your chance of stroke are: * If you are a smoker, now is the time to stop smoking cigarettes * If you are diabetic, improve the control of your blood sugars * Avoid excessive amounts of alcohol * Control high blood pressure * Lose weight if you are overweight * Be sure to lead an active lifestyle * Eat a healthy diet low in salt, cholesterol and fat You should know about other risk factors for stroke that you are unable to control. These include: * Age 55 years or older * Male gender * Certain racial groups: , or / * Family History of Stroke, Mini stroke or Heart Attack * Sickle Cell Disease Follow Up: It is important for you to keep your follow up appointments with your medical provider. Current Hospital Diet Patient's current hospital diet: Regular Diet Discharge Diet Recommended Diet: AHA Diet (Heart Healthy) Diet Texture: Mechanical Soft (ground) Pending Studies Studies pending at discharge: no Laboratory Results Hemoglobin A1c Test 03/20/17 05:29 Range/Units Estimated Average Glucose 120 mg/dl Hemoglobin A1c 5.8 H 4.5-5.6 % Lipid Panel Test 03/20/17 05:29 Range/Units Triglycerides Level 80 0-150 mg/dl Cholesterol Level 117 0-200 mg/dl HDL Cholesterol 46 mg/dl Cholesterol/HDL Ratio 2.5 LDL Cholesterol, Calculated 55 mg/dl Medical Emergencies . Who to Call and When: Medical Emergencies: Call 911 immediately if you experience any of the following warning signs and symptoms of Stroke: * Sudden numbness or weakness of the face, arm or leg, especially on one side of the body * Sudden confusion, trouble speaking or understanding * Sudden trouble seeing in one or both eyes * Sudden trouble walking, dizziness, loss of balance or coordination * Sudden severe headache with no cause Do not delay calling 911 if you experience any warning signs or symptoms of a stroke. Delay in seeking medical attention may affect what treatments can be given to you. . Non-Emergent Contact Non-Emergency issues call your: Primary Care Provider, Neurologist . . "Provider Documentation" section prepared by Shruti Vincent. . Stroke Core Measures Reason no t-PA for Stroke: Treatment provided - N/A Reason no antithrom by day 2: Treatment provided - N/A Reason no antithrom at D/C: Treatment provided - N/A Reason no statin at D/C: Treatment provided - N/A Reason no anticoag w/a fib: Treatment not indicated VTE Core Measure Inpt VTE Proph given/why not?: Other Anticoagulation (tPA, then dual antiplatelets)
--- NOTE | 2017-03-21 11:26 | Discharge Summary ---
Discharge Summary Date of Service Mar 21, 2017. 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 Medication Reconciliation Changed Medications: Aspirin (Aspirin Ec) 81 Mg Tab 162 MG PO DAILY for 30 Days, #60 TABS (Changed from: 81 MG) Continued Medications: Atorvastatin (Lipitor) 40 Mg Tab 40 MG PO DAILY Clopidogrel (Plavix) 75 Mg Tab 75 MG PO DAILY, TAB Coconut Oil (Bulk) (Coconut Oil) 1 Oil Oil 2 TBS PO BID Coenzyme Q10 (Ubidecarenone) (Coenzyme Q10) 60 Mg Cap 60 MG PO DAILY Losartan Potassium (Cozaar) 25 Mg Tab 25 MG PO DAILY, TAB Magnesium Oxide (Mag-Ox) 400 Mg Tab 400 MG PO DAILY, TAB Nitroglycerin (Nitrostat) 0.4 Mg Tab 0.4 MG UT PRN PRN for Chest Pain, BTL 1 TAB EVERY 5 MINUTES, MAX 3 TABS IN 15 MINUTES. [place]-3 Fatty Acids (Fish Oil) 1,000 Mg Cap 1000 MG PO DAILY Admission Information Physical Exam (per Admitting): DATE OF ADMISSION: 03/19/2017 PRIMARY CARE PHYSICIAN: Dr. Elliott CHIEF COMPLAINT: Stroke. HISTORY OF PRESENT ILLNESS: Hx obtained from the patient, family, and records. Limited hx from px 2 to aphasic state. Medical history is significant for chronic systolic/diastolic HF (EF of 55% from 2016 stress echo), CAD status post stenting. hypertension, hyperlipidemia, past tobacco abuse, chronic bradycardia as per records. Recent confinement last May 2015 under Cardiology service for acute AK. A drug-eluting stent was deployed in the proximal LAD. Last night, the patient was taking a bite of a doughnut when noticed patient to be staring at the doughnut , noted right facial and right upper extremity weakness. Patient unable to get words out. No chest pain and no shortness of breath. The patient is compliant with home Aspirin and Plavix. Patient's gave patient some aspirin prior to arrival of EMS. Patient was brought to the Emergency Room. At the Emergency Room, Stroke alert was called. Patient subsequently given tPA. Some improvement after tPA initiation. MEDICAL HISTORY: As above. SURGERIES: He has had cholecystectomy. HOME MEDICATIONS: Include; aspirin, Plavix, Lipitor, Cozaar, mag ox, Nitrostat and fish oil. ALLERGIC: NSAID, SIMVASTATIN AND DYE. FAMILY HISTORY: Heart disease. PERSONAL AND SOCIAL HISTORY: Past tobacco abuse. No chronic intake of alcoholic beverages. 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 REVIEW OF SYSTEMS: Could not be fully obtained. PHYSICAL EXAMINATION: VITAL SIGNS: Blood pressure was noted to be 186/95 [id number], pulse 59, RR 16, temperature 36.7 and sats 96 on room air. GENERAL: Noted to be slightly anxious, in no respiratory distress, looks younger for stated age. aphasic SKIN: Normal color. HEENT: Alopecia. [place] palpebral conjunctivae, dry mucosa. Right facial droop. NECK: No JVD. Supple. CHEST: Decreased effort. HEART: bradycardic ABDOMEN: Soft. EXTREMITIES: No edema, no tenderness. NEUROLOGIC: No gross focality except for aphasia, R facila droop, and decreased strength in the right upper extremity. LABORATORIES: Hemoglobin was noted to be 15.5, white cell count 7.3 and platelets was noted to be 214. Sodium 145, potassium 4, chloride 109 and CO2 of 26. BUN 40, creatinine 1.2 and glucose was noted to be 126. Troponin was noted to be 0.5, TSH 4.02. Lipid profile in August 2016 : cholesterol 149, HDL 58, LDL [address] head initial read; no ICH, no mass effect/midline shift, no acute infarct Chest x-ray min congestion. EKG as per my interpretation; 60, LAD, LAFB, nonspecific TW abnormalities in the lateral leads. ASSESSMENT: 1. Acute cerebrovascular accident likely left middle cerbral artery distribution poss aspirin and Plavix failure. some improvement of neuro deficit noted post TPA admin 2. Hypertension urgency 2 to above 3. chronic systolic and diastolic heart failure, some pulm congestion albeit no overt decompensation 4. hx CAD sp stenting 5. hyperlipidemia on statin tx 6. chronic bradycardia 7. past tobacco abuse PLAN: ICU monitoring post tPA. Neuro checks. stroke patel as follows : MRI/MRA head, TTE, carotid Dopplers with echo resume antiplatelet tx at some point continue statin permissive HTN for now to optimize cerebral perfusion Neurology consult RE stroke. PT/OT eval. DVT prophylaxis, SCDs for now post TPA Lovenox SQ for pharmacologic prophylaxis at some point. Full code. Hospital Course This is a 81 year old male with a PMH of CAD s/p stenting, diastolic CHF, HTN, HLD, chronic bradycardia presents with L basal ganglia infarct Acute L Basal Ganglia Infarct 03/21 appreciate neurology input plan is to discharge to [facility] today he will received PT/OT/speech therapy at HS aspirin to increase to 162mg from 81mg 03/[address] = negative for any bleeding will need continued PT/OT/speech continued tele monitoring for now discharge planning to rehab appreciate neuro input for any additional management will need outpatient cardionet continue aspirin/Plavix today, which has been ordered 03/19 expressive aphasia and right sided facial droop noted s/p tPA on 03/18 symptoms persist today (03/19) speech evaluation performed, aspiration precautions, mechanical soft diet - continue speech therapy PT/OT pending field appraiser and neurologist consulted will monitor for blood pressure, to keep SBP < 185, no aspirin/Plavix x24 hours CAD s/p stenting continue aspirin, Plavix on 03/20 (no bleeding noted on repeat head CT) continue statin HTN monitor BP goal SBP < 185 due to tPA use continue Cozaar DVT ppx s/p tPA restart aspirin + Plavix FULL CODE Total time spent on discharge = 45 minutes This includes examination of the patient, discharge planning, medication reconciliation, and communication with other providers. Discharge Instructions Risk Factors for Stroke: You can reduce your chances of stroke by working with your medical provider to adopt a healthy lifestyle. Some specific ways to lower your chance of stroke are: * If you are a smoker, now is the time to stop smoking cigarettes * If you are diabetic, improve the control of your blood sugars * Avoid excessive amounts of alcohol * Control high blood pressure * Lose weight if you are overweight * Be sure to lead an active lifestyle * Eat a healthy diet low in salt, cholesterol and fat You should know about other risk factors for stroke that you are unable to control. These include: * Age 55 years or older * Male gender * Certain racial groups: , or / * Family History of Stroke, Mini stroke or Heart Attack * Sickle Cell Disease Follow Up: It is important for you to keep your follow up appointments with your medical provider.
[2017-03-21 11:43] VITALS: BP 153/79; PULSE 60; TEMP 36.8; O2SAT 96
[2017-03-21 12:56] VITALS: BP 153/79; PULSE 60; TEMP 36.8; O2SAT 96
== END 2017-03-21 15:22 | DRG 62 ==
LOC: C.ED 23:15 → EDBD 23:15 → ENRESERV 03-19 01:15 → C.MSICU 03-19 01:31 → ENRESERV 03-20 11:36 → C.2T 03-20 12:10
PROVIDERS: ADMIT Internal Medicine; ATTEND Family Medicine
DX: I63.512 Cerebral infarction due to unspecified occlusion or stenosis of left middle cerebral artery (principal); I50.42 Chronic combined systolic (congestive) and diastolic (congestive) heart failure; R47.01 Aphasia; R29.810 Facial weakness; F41.9 Anxiety disorder, unspecified; Z90.49 Acquired absence of other specified parts of digestive tract; I25.10 Atherosclerotic heart disease of native coronary artery without angina pectoris; I11.0 Hypertensive heart disease with heart failure; I16.0 Hypertensive urgency; E78.5 Hyperlipidemia, unspecified; R00.1 Bradycardia, unspecified; L65.9 Nonscarring hair loss, unspecified; Z87.891 Personal history of nicotine dependence; I25.2 Old myocardial infarction; Z91.013 Allergy to seafood; Z79.82 Long term (current) use of aspirin; Z79.02 Long term (current) use of antithrombotics/antiplatelets; Z79.899 Other long term (current) drug therapy; Z88.6 Allergy status to analgesic agent; Z91.041 Radiographic dye allergy status; Z82.49 Family history of ischemic heart disease and other diseases of the circulatory system; Z95.1 Presence of aortocoronary bypass graft; Z95.5 Presence of coronary angioplasty implant and graft

== ENCOUNTER 2017-11-26 08:54 | Observation (INO) | payer OTHER, MEDICARE ==
[~2017-11-26] VITALS: Ht 175.3 cm; Wt 73.1 kg
[~2017-11-26 08:54] MED LIST changes: -ASPEC81 PO; +ASPI81TA28 PO; +CEFAZOLIN 1000MG IV PUSH 7.5 ML IV SCH; +CLOP1TAB15 PO; +COEN60CA PO; +LACTATED RINGER'S 1000ML 1,000 ML IV SCH; +LOSA1TAB PO; -LSN25 PO; +MAGN400T6 PO; -MAGNESIUM; +NTRGSL/4 UT; -NTRSLP4 SL; +OMEG10002 PO; -OMEG10007 PO; -PLV75 PO; -TPRSR25 PO; -VITAMINS; -[UNRECOGNIZED DRUG - CODE]; -[UNRECOGNIZED DRUG - OTHER]
[2017-11-26 09:07] VITALS: BP 160/64; PULSE 47; TEMP 36.8; O2SAT 97; Ht 175.3 cm; Wt 73.1 kg
[2017-11-26] MEDS ORDERED: MULT-506 PO (09:08)
[2017-11-26] MEDS ORDERED: SERT25TA PO (09:08)
[2017-11-26] MEDS ORDERED: BACITRACIN 50000 UNIT VIAL ONE (09:10)
[2017-11-26] MEDS ORDERED: LIDOCAINE HCL 1% 20 ML VIAL ONE (09:10)
[2017-11-26] MEDS ORDERED: BUPIVACAINE 0.5 % 5 MG/1 ML MPF 30ML VIAL ONE (09:10)
--- NOTE | 2017-11-26 09:22 | Pre Sedation Assessment ---
Pre Sedation Assessment General Date of Sedation: Nov 26, 2017. Vital Signs Past 12 Hours Date Time Temp Pulse Resp B/P (MAP) Pulse Ox O2 Delivery O2 Flow Rate FiO2 11/26/17 09:07 36.8 47 16 160/64 (96) 97 Room Air Review Cardiovascular: + bradycardia Lungs: lungs clear Pre-Sedation Airway Assessment Smoking Status: Never Smoker Hx of Sleep Apnea: No Short Thick Neck: No Thyro-mental Distance: > 3 Finger Breadths Oral Cavity: WNL Mallampati Classification: Class II ASA Classification: Class II NPO Status Date of Last Intake of Fluids: Nov 25, 2017 Time of Last Intake of Fluids: 1900 Date of Last Intake of Solids: Nov 25, 2017 Time of Last Intake of Solids: 1899 Procedure Planning Contraindications for Sedation: None Current Medications Reviewed: Yes Notes The planned sedation has been discussed with the patient. Informed Consent was obtained. I have identified the patient, determined the appropriateness of sedation and have assessed the patient immediately prior to the procedure. All medicine(s) and interventions are by my order.
--- NOTE | 2017-11-26 09:22 | History & Physical Bridge Note ---
H&P Re-Evaluation Bridge Note: I have examined the patient, reviewed the History & Physical and in the interval since the performance of the History & Physical I have noted the following changes of clinical significance: No changes noted
[2017-11-26] MEDS ORDERED: DiphenhydrAMINE HCL 50 MG/ML VIAL ONE (09:29)
[2017-11-26] MEDS ORDERED: RANITIDINE HCL 25 MG/ML INJ ONE (09:29)
[2017-11-26] MEDS ORDERED: METHYLPREDNISOLONE 125 MG VIAL ONE (09:29)
[2017-11-26] MEDS ORDERED: MIDAZOLAM HCL 5 MG/ML 1 ML VIAL ONE (09:50)
[2017-11-26] MEDS ORDERED: CEFAZOLIN SOD 1 GM VIAL ONE (09:50)
[2017-11-26] MEDS ORDERED: FENTANYL CITRATE INJ 50 MCG/1 ML 2 ML VIAL ONE (09:50)
--- NOTE | 2017-11-26 11:21 | Post Sedation Assessment ---
Post Sedation Assessment General Date of Sedation Nov 26, 2017. Vital Signs: Vital Signs Past 12 Hours Date Time Temp Pulse Resp B/P (MAP) Pulse Ox O2 Delivery O2 Flow Rate FiO2 11/26/17 11:06 59 16 114/66 (82) 99 Mask 3 11/26/17 09:07 36.8 47 16 160/64 (96) 97 Room Air Post Procedure Recovery Score Activity: (2) Moves 4 extremities * Respiration: (2) Deep breath/cough Circulation: (2) +/-20% PreAnes Value Consciousness: (2) Fully Awake Oxygen Saturation: (2) > 92% On Room Air Post Anesthesia Score: 10 Discharge Sedation Level of Care: Fast Track Phase II Post Sedation Plan On clinical assessment, the patient appears to have tolerated the sedation without complications. Patient is recovering as anticipated. Patient will continue to be monitored by nursing and may be discharged when sedation discharge criteria are met per below protocol. Upon Completions of procedure and additional 15 minutes continue every 5 minute vital signs and the P.A.R. score; then discharge to a Phase I or Fast Track to Phase II per the following guidelines: * Discharge Patient to appropriate Phase II area if PAR is 8 or greater or return to pre- procedure baseline. The post - procedure orders will be as directed. * If PAR score is less than 8 or not return to pre-procedure baseline then patient will follow Phase I monitoring till PAR is reached for Phase II. The Phase I may be done in procedure room or may call to secure a Phase I area. * If naloxone or flumazenil are used for reversal, hold in Phase I for an additional 60 -120 minutes before discharge to Phase II. Please call the Sedation Physician to re-evaluate and complete post-note for discharge to Phase II area. Do NOT discharge from procedure sedation or Phase 1 until post- sedation evaluation note is complete by procedure /sedation MD Sedation Discharge Instructions to be given to the patient at discharge to home.
--- NOTE | 2017-11-26 11:23 | [facility] Post Operative Brief Note ---
Immediate Operative Summary Operative Date Nov 26, 2017. Pre-Operative Diagnosis snd Post-Operative Diagnosis same Procedure(s) Performed dual chamber rate responsive permanent pacemaker Surgeon jina duenas Paperhanger Apprentice Surgeon(s) none Estimated Blood Loss <10cc Findings See Below see official report Fluids (cc crystalloids) 130cc Specimens none Drains None Anesthesia Type IV Sedat Cons RN Only Complication(s) none Disposition Accompanied Pt To Recover: yes Disposition: PCU
[2017-11-26] MEDS ORDERED: NITROGLYCERIN 0.4 MG SL PER TAB CHARGE UT PRN (11:30)
[2017-11-26] MEDS ORDERED: ACETAMINOPHEN 325 MG TAB PO PRN (11:30)
--- NOTE | 2017-11-26 12:27 | OPERATIVE REPORT ---
DATE OF OPERATION: 11/26/2017 PREOPERATIVE DIAGNOSIS: Sinus node dysfunction. POSTOPERATIVE DIAGNOSIS: Same. PROCEDURE: Dual-chamber rate responsive permanent pacemaker under fluoroscopic guidance. SURGEON: Dr. Desiree Florez. ASSISTANTS: None. ANESTHESIA: Monitored conscious sedation administered under my supervision by Jenifer Peterson; start time 9:55 and end time 11:06; total of 3 mg of Versed and 75 mcg of fentanyl. INTRAVENOUS FLUIDS: 130 mL ANTIBIOTICS: 1 gram of Ancef. ADDITIONAL MEDICATIONS: Benadryl, Solu-cortef, Zantac for IV contrast allergy BLOOD LOSS: Less than 10 mL COMPLICATIONS: None. CONDITION: Stable. URINE OUTPUT: Not applicable. SPECIMENS: None. DRAINS: None. FINDINGS: See below. INDICATIONS: This is an 82-year-old gentleman who has a past medical history for first-degree AV block, sinus node dysfunction, coronary artery disease, history of PTCA and PCI to the LAD in 09/1999, followed by a STEMI where he got a drug-eluting stent to the LAD in 05/2015, hypertension, hyperlipidemia, CVA in 02/2017 of the left basal ganglia, he has residual mild expressive aphasia and depression. Due to his worsening sinus node dysfunction now becoming symptomatic, he was recommended a permanent pacemaker. CONSENT: Consent was obtained prior to the patient going into the electrophysiology lab. The patient was informed of the risks, benefits and alternatives to the procedure. Risks include but not limited to sudden cardiac , cardiac arrhythmias, cerebrovascular accident, myocardial infarction, injury to the blood vessels, chamber of the heart, lungs, bleeding and infection. The patient understood these risks and agreed to the procedure as planned. Informed consent was obtained. DESCRIPTION OF THE PROCEDURE: The patient was brought into the electrophysiology lab in a fasting state. He was connected to continuous cardiac monitoring. A timeout was performed to ensure the patient's identity and procedure correctly. The patient was prepped and draped over the left infraclavicular space in normal surgical standard fashion. Moderate conscious sedation was given throughout the procedure for the patient's comfort level. Winger precautions were maintained throughout the procedure. 20 mL of 1% lidocaine-bupivacaine mixture were given in the left deltopectoral groove. Incision was made in the left deltopectoral groove. Blunt dissection was performed down to identify the cephalic vein. The cephalic vein was identified and isolated using 0 silk ties. The vein was nicked with an 11 blade and a Glidewire was inserted without any resistance. An 8-[place] sheath was inserted over the Glidewire without any resistance. Dilator was removed and a second guidewire was inserted through the 8-Chadian sheath to allow for retained venous access. The 8-Chadian sheath was then flushed and dilator reinserted over it and then the 8-Chadian sheath was inserted over the Glidewire without any resistance. The guidewire and dilator were removed. The right ventricular pacing lead was then advanced into the right ventricle and positioned into the right ventricular apex under fluoroscopic guidance. There were adequate pacing and sensing thresholds and no diaphragmatic stimulation with high output pacing. The 8-Chadian sheath was peeled away and lead was fixated to pectoralis muscle using 0 silk suture. A second 8-Chadian sheath was inserted over the retained guidewire without any resistance. The guidewire and dilator were removed. The right atrial lead was then advanced into the right atrium and positioned into right atrial appendage under fluoroscopic guidance. There were adequate pacing and sensing thresholds and no diaphragmatic stimulation with high output pacing. The 8-[place]adian sheath was peeled away and lead was fixated to pectoralis muscle using 0 silk suture. Additional 10 mL of 1% lidocaine-bupivacaine mixture were given in the pectoralis fascia and a pacemaker pocket was created using blunt dissection over the pectoralis muscle within the fascia. The pocket was flushed with copious amounts of bacitracin saline wash and inspected for hemostasis. The pulse generator was then attached to the leads, making sure that the pins were in appropriate position, passed the set screws and set screws were all tightened. The pulse generator was then placed in the pocket, making sure that the leads were lying flat beneath the device. A stay stitch using 0 silk suture was used to secure the device to the pectoralis muscle. The incision was then closed in a 3-layer fashion using 2-0 Vicryl interrupted suture, followed by 3-0 Vicryl interrupted suture, followed by 4-0 Monocryl running stitch, and Dermabond was applied. EQUIPMENT: 1. Pulse generator is a Medtronic [place] XT DR MALA Mcgraw [id number], serial #[id number]. 2. Right atrial lead Medtronic 5076-52 cm, serial #[id number]. 3. Right ventricular lead Medtronic 5076-58 cm, serial #[id number]. INTRAOPERATIVE TESTIN. Right atrial lead: P-wave 2.2 millivolts, impedance 950 ohms, threshold 0.6 volts at 0.5 milliamps. 2. Right ventricular lead: R-wave 14 millivolts, impedance 943 ohms, threshold 0.6 volts at 0.8 milliamps. FINAL MEASUREMENTS THROUGH THE DEVICE: 1. Right atrial lead: P-wave 1.4 millivolts, impedance 817 ohms, threshold 0.75 volts at 0.4 milliseconds. 2. Right ventricular lead: R-wave 13.6 millivolts, impedance 741 ohms, threshold 0.75 volts at 0.4 milliseconds. FINAL PARAMETERS: MVP-R 50 to 130. Right atrial amplitude 3.5 volts, pulse width 0.4 milliseconds, sensitivity 0.3 millivolts. Right ventricular amplitude 3.5 volts, pulse width 0.4 milliseconds, sensitivity 1.2 millivolts. IMPRESSION: Successful implantation of a dual-chamber rate responsive permanent pacemaker under fluoroscopic guidance secondary to sinus node dysfunction. PLAN: Monitor the patient overnight, 12-lead ECG, chest x-ray. He is not allowed to lift left elbow or left shoulder for 1 month. He cannot lift more than 10 pounds with the left arm for 2 weeks. He can shower tomorrow, let water run over the incision. We will start him back on metoprolol 25 mg daily. He will have device and wound check in 1 week's time. I attest to the content of the Intraoperative Record and any orders documented therein. Any exceptions are noted below. MARCELO
[2017-11-26 14:28] VITALS: BP 130/71; PULSE 55; TEMP 36.6; O2SAT 97
[2017-11-26 16:00] VITALS: BP 139/71; PULSE 60; TEMP 36.8; O2SAT 95
[2017-11-26] MEDS ORDERED: IV FLUIDS COMPLETED PRN (16:15)
[2017-11-26 19:21] VITALS: BP 123/65; PULSE 63; TEMP 36.8; O2SAT 94
[2017-11-26 20:00] VITALS: O2SAT 95
[2017-11-26 23:51] VITALS: BP 121/68; PULSE 68; TEMP 36.9; O2SAT 93
[2017-11-27 00:01] VITALS: O2SAT 93
[2017-11-27 03:41] VITALS: BP 114/66; PULSE 67; TEMP 37.1; O2SAT 95
[2017-11-27 04:00] VITALS: O2SAT 95
--- NOTE | 2017-11-27 06:55 | DIAGNOSTIC IMAGING REPORT ---
CHEST 2 VIEWS ROUTINE CLINICAL HISTORY: 82 years-old Male presenting with EXACT TIME ORDERED Evaluate for pneumothorax and lead placement. TECHNIQUE: PA and lateral views of the chest were obtained. COMPARISON: 03/19/2017. FINDINGS: Left subclavian pacer now in place with lead to the right atrium and right ventricular apex. Cardiomediastinal silhouette normal. And slight asymmetric density in the region of the left mid to upper lateral lung may relate to soft tissue swelling from pacer placement. Lungs and pleural spaces clear. Degenerative changes of the thoracic spine. Upper abdomen normal. IMPRESSION: 1. Interval placement of a left subclavian 2-lead pacer. No pneumothorax. Electronically signed by: Angel Rodriguez M.D. 11/27/2017 6:54 AM Dictated Date/Time: 11/27/2017 6:53 AM
[2017-11-27 07:54] VITALS: BP 165/98; PULSE 85; TEMP 36.6; O2SAT 96
[2017-11-27] MEDS ORDERED: TPRSR25 PO (08:14)
--- NOTE | 2017-11-27 08:15 | Discharge Instructions ---
Discharge Instructions Date of Service Nov 27, 2017. Admission Reason for Admission: Chronic Sinus Bradycardia Discharge Discharge Diagnosis / Problem: SND Discharge Goals Goal(s): Improve function Activity Recommendations Activity Limitations: as noted below Lifting Limitations: no more than 10 pounds (do not lift the left elbow over the left shoulder for 1 month or lift more than 10 pounds with the left arm for 2 weeks) Shower/Bathe: tomorrow Driving or Machine Use: resume 1 day after discharge . Instructions / Follow-Up Instructions / Follow-Up ACTIVITY RECOMMENDATIONS: * Do not raise affected arm over head for 4 weeks. SPECIAL CARE INSTRUCTIONS: * If bleeding occurs, apply direct pressure to area for 5 minutes. * Call your doctor if you have severe pain, fever, drainage or bleeding at site. * Keep dry for 24 hours. * Keep any scheduled doctor's appointment. * Implant Card - hand held device with website information given. SKIN IRRITATION: * You may experience some redness and/or swelling in the area where radiation was administered. If any skin irritation occurs, please contact your family physician. FOLLOW UP VISIT: Keep any scheduled doctor appointments. Current Hospital Diet Patient's current hospital diet: AHA Diet (Heart Healthy) Discharge Diet Recommended Diet: AHA Diet (Heart Healthy) Procedures Procedures Performed: dual chamber rate responsive permanent pacemaker Pending Studies Studies pending at discharge: no Medical Emergencies . Who to Call and When: Medical Emergencies: If at any time you feel your situation is an emergency, please call 911 immediately. . Non-Emergent Contact Non-Emergency issues call your: Business Analyst Project Manager . . "Provider Documentation" section prepared by Desiree Florez. . VTE Core Measure Inpt VTE Proph given/why not?: Treatment not indicated
--- NOTE | 2017-11-27 08:22 | Discharge Summary ---
Discharge Summary Date of Service Nov 27, 2017. Discharge Summary Admission Date: Nov 26, 2017 at 11:25 Discharge Date: Nov 27, 2017 Discharge Disposition: Home Principal Diagnosis: sinus node dysfunction Secondary Diagnoses/Problems: 1st degree AV block CAD h/o PCI LAD in 09/1999 and STEMI and REYES to LAD in 05/2015 HTN HLD CVA 02/2107 of Left basal ganglia with residual mild expressive aphagia Depression Procedures: dual chamber permanent pacemaker Medication Reconciliation New Medications: Metoprolol Succinate (Metoprolol Succinate ER) 25 Mg Tabcr 25 MG PO QAM for 30 Days Continued Medications: Aspirin (Aspirin Ec) 81 Mg Tab 162 MG PO DAILY for 30 Days, #60 TABS Atorvastatin (Lipitor) 40 Mg Tab 40 MG PO DAILY Clopidogrel (Plavix) 75 Mg Tab 75 MG PO DAILY, TAB Coenzyme Q10 (Ubidecarenone) (Coenzyme Q10) 60 Mg Cap 60 MG PO DAILY Losartan Potassium (Cozaar) 25 Mg Tab 25 MG PO DAILY, TAB Magnesium Oxide (Mag-Ox) 400 Mg Tab 400 MG PO DAILY, TAB Multivitamin (Multivitamin) Tab 1 TAB PO DAILY, TAB Nitroglycerin (Nitrostat) 0.4 Mg Tab 0.4 MG UT PRN PRN for Chest Pain, BTL 1 TAB EVERY 5 MINUTES, MAX 3 TABS IN 15 MINUTES. [place]-3 Fatty Acids (Fish Oil) 1,000 Mg Cap 1000 MG PO DAILY Sertraline (Zoloft) 25 Mg Tab 1 TAB PO DAILY for 30 Days, #30 TAB 2 Refills Admission Information Physical Exam (per Admitting): aaox3, NAD Supple, No JVD Nrl S1/S2, bradycardia CTA b/l No W/R/R Soft NT/ND No edema b/l aphagia skin intact Hospital Course Pt admitted for elective permanent pacemaker due to sinus node dysfunction. Underwent procedure without any complications; monitored overnight; started on Toprol and discharged home Total time spent on discharge = 30 minutes This includes examination of the patient, discharge planning, medication reconciliation, and communication with other providers. Discharge Instructions ACTIVITY RECOMMENDATIONS: * Do not raise affected arm over head for 4 weeks. SPECIAL CARE INSTRUCTIONS: * If bleeding occurs, apply direct pressure to area for 5 minutes. * Call your doctor if you have severe pain, fever, drainage or bleeding at site. * Keep dry for 24hours. * Keep any scheduled doctor's appointment. * Implant Card - hand held device with website information given. SKIN IRRITATION: * You may experience some redness and/or swelling in the area where radiation was administered. If any skin irritation occurs, please contact your family physician. FOLLOW UP VISIT: Keep any scheduled doctor appointments.
--- NOTE | 2017-11-27 08:27 | Cardiology Follow-Up ---
Subjective Subjective Date of Service: Nov 27, 2017. Pt evaluation today including: conversation w/ patient, physical exam, review of studies Pain: minimal at the incision site Additional Details: pt has already noticed an improvement in energy level Problem List Medical Problems: (1) Acute CVA (cerebrovascular accident) Status: Acute Review of Systems Constitutional: No fever, No fatigue Respiratory: No shortness of breath, No dyspnea on exertion Cardiac: No chest pain, No edema, No palpitations Abdomen: No vomiting, No diarrhea, No constipation Neurologic: + problem reported (aphagia) Endo: No fatigue Objective Vital Signs Last Vital Signs Documentation Date Time Temp Pulse Resp B/P (MAP) Pulse Ox O2 Delivery O2 Flow Rate FiO2 11/27/17 07:54 36.6 85 18 165/98 (120) 96 11/27/17 04:00 Room Air 11/26/17 16:00 3.0 Physical Exam: General Appearance: WD/WN, no apparent distress Eyes: bilateral eyes PERRL, bilateral eyes EOMI Neck: supple, no JVD Respiratory/Chest: lungs clear, normal breath sounds, no respiratory distress Cardiovascular: regular rate, rhythm, no edema, no JVD (left pectoral region- pacemaker intact and no hematoma some ecchymosis noted), no murmur Abdomen: non tender, soft Extremities: no pedal edema Neurologic/Psychiatric: alert, oriented x 3, + pertinent finding (aphagia) Skin: normal color Assessment and Plan Impression: 1. Sinus node dysfunction s/p dual chamber pacemaker 2. 1st degree AV block 3. CAD h/o PCI LAD in 09/1999 and STEMI and REYES to LAD in 05/2015 4. HTN 5. HLD 6. 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 Depression Plan: -Ok for discharge home today -Script for toprol sent to pharmacy -Continue home medications -Shower tomorrow -Do not lift the left elbow over the left shoulder for 1 month -Device and wound check [facility] on 12/03/2017 at 11am Discharge planning: home Medications: Medications Administered Medications (Trade) Dose Ordered Sig/[place] Route Start Time Stop Time Status Last Admin Dose Admin Lactated Ringer's 1,000 ml @ 15 mls/hr Q24H IV 11/26/17 06:00 11/27/17 05:59 DC 11/26/17 06:00 15 MLS/HR Methylprednisolone Sodium Succinate (Solu-Medrol IV) 125 mg STK-MED ONCE .ROUTE 11/26/17 09:29 11/26/17 09:30 DC 11/26/17 09:29 125 MG Ranitidine HCl (zANTac IV) 50 mg STK-MED ONCE .ROUTE 11/26/17 09:29 11/26/17 09:30 DC 11/26/17 09:29 50 MG Diphenhydramine HCl (Benadryl Inj) 50 mg STK-MED ONCE .ROUTE 11/26/17 09:29 11/26/17 09:30 DC 11/26/17 09:29 50 MG Midazolam HCl (Versed Inj) 5 mg STK-MED ONCE .ROUTE 11/26/17 09:50 11/26/17 09:51 DC 11/26/17 09:50 3 MG Fentanyl Citrate (Fentanyl Inj) 100 mcg STK-MED ONCE .ROUTE 11/26/17 09:50 11/26/17 09:51 DC 11/26/17 09:50 75 MCG Cefazolin Sodium (Ancef Inj) 1,000 mg STK-MED ONCE .ROUTE 11/26/17 09:50 11/26/17 09:51 DC 11/26/17 09:50 1,000 MG Aspirin (Ecotrin Tab) 162 mg DAILY PO 11/27/17 09:00 12/27/17 08:59 11/27/17 07:45 162 MG Atorvastatin Calcium (Lipitor Tab) 40 mg DAILY PO 11/27/17 09:00 12/27/17 08:59 11/27/17 07:46 40 MG Clopidogrel Bisulfate (plAVix TAB) 75 mg DAILY PO 11/27/17 09:00 12/27/17 08:59 11/27/17 07:46 75 MG Losartan Potassium (coZAAR TAB) 25 mg DAILY PO 11/27/17 09:00 12/27/17 08:59 11/27/17 07:46 25 MG Magnesium Oxide (Mag-Ox Tab) 400 mg DAILY PO 11/27/17 09:00 12/27/17 08:59 11/27/17 07:46 400 MG Multivitamins (Multivitamin Tab) 1 tab DAILY PO 11/27/17 09:00 3/30/18 08:59 11/27/17 07:47 1 TAB Fish Oil ([place]-3 (Purified Fish Oil) Cap) 1 gm DAILY PO 11/27/17 09:00 12/27/17 08:59 11/27/17 07:45 1 GM Sertraline HCl (Zoloft Tab) 25 mg DAILY PO 11/27/17 09:00 12/27/17 08:59 11/27/17 07:46 25 MG Metoprolol Succinate (Toprol Xl Tab) 25 mg QAM PO 11/27/17 09:00 12/27/17 08:59 11/27/17 07:47 25 MG Lab Results: ECG: AP VS CXR: Leads in place No PTX Pacemaker Interrogation Today: 26% AP overnight Stable and normal RA and RV lead testing
[2017-11-27] MEDS ORDERED: ATORVASTATIN 40 MG TAB PO SCH (09:00)
[2017-11-27] MEDS ORDERED: SERTRALINE HCL 50 MG TAB PO SCH (09:00)
[2017-11-27] MEDS ORDERED: OMEGA-3 (PURIFIED FISH OIL) 1 GM CAP PO SCH (09:00)
[2017-11-27] MEDS ORDERED: CLOPIDOGREL BISULFATE 75 MG TAB PO SCH (09:00)
[2017-11-27] MEDS ORDERED: ASPIRIN 81 MG ECTAB PO SCH (09:00)
[2017-11-27] MEDS ORDERED: MAGNESIUM OXIDE 400 MG TAB PO SCH (09:00)
[2017-11-27] MEDS ORDERED: MULTIVITAMIN TAB PO SCH (09:00)
[2017-11-27] MEDS ORDERED: METOPROLOL SUCC 25MG EXT REL TAB PO SCH (09:00)
[2017-11-27] MEDS ORDERED: LOSARTAN POTASSIUM 25 MG TAB PO SCH (09:00)
[2017-11-27 09:09] VITALS: BP 165/98; PULSE 85; TEMP 36.6; O2SAT 96
== END 2017-11-27 10:00 | disposition home or self-care (01) ==
LOC: C.CATH 08:54 → ENRESERV 10:42 → C.2T 11:25
PROVIDERS: ADMIT Internal Medicine; ATTEND Internal Medicine
DX: I49.5 Sick sinus syndrome (principal); R00.1 Bradycardia, unspecified; I25.10 Atherosclerotic heart disease of native coronary artery without angina pectoris; I10 Essential (primary) hypertension; E78.5 Hyperlipidemia, unspecified; Z86.73 Personal history of transient ischemic attack (TIA), and cerebral infarction without residual deficits; Z95.9 Presence of cardiac and vascular implant and graft, unspecified; I25.2 Old myocardial infarction; F43.21 Adjustment disorder with depressed mood; Z79.82 Long term (current) use of aspirin; Z82.49 Family history of ischemic heart disease and other diseases of the circulatory system; Z83.6 Family history of other diseases of the respiratory system; Z80.42 Family history of malignant neoplasm of prostate; Z87.891 Personal history of nicotine dependence; Z91.041 Radiographic dye allergy status

== ENCOUNTER 2025-01-11 14:53 | Inpatient (IN) ==
--- NOTE | 2025-01-11 15:36 | Emergency Department Note ---
History of Present Illness General Chief complaint: Fall Stated complaint: FALL, WEAKNESS Time Seen by Provider: 01/11/25 15:16 History of Present Illness Maximum Pain Intensity: 6 This is an 89-year-old male that presents to the emergency department via private vehicle with complaints of "fall, weakness". History obtained from patient, at bedside and son at bedside. Reportedly this morning the patient fell while getting out of bed. notes she suspects either the sheets/blankets were on the floor from the bed causing him to slip and fall versus trip. She notes she heard the fall as she was in the same room. He struck the head against the nightstand and right side of the flank region against a plastic container. He also notes some right foot pain at the right fifth toe. Tetanus appears to be out of date last in 2009 per EMR. Patient denies any pain at the present time but son at bedside notes that he seems overall weak. No unilateral weakness. No speech trouble. No recent illness. No chest pain or shortness of breath. No abdominal pain. Per review of the EMR patient on Plavix. Home Medications Medication Instructions Recorded Confirmed Type aspirin 81 mg tablet,delayed 162 mg PO QAM 01/11/25 01/11/25 History release atorvastatin 80 mg tablet 80 mg PO DAILY 01/11/25 01/11/25 History clopidogrel 75 mg tablet 75 mg PO DAILY 01/11/25 01/11/25 History hydrochlorothiazide 12.5 mg capsule 12.5 mg PO UD 01/11/25 01/11/25 History isosorbide mononitrate 30 mg 30 mg PO QAM 01/11/25 01/11/25 History tablet,extended release 24 hr losartan 25 mg tablet 20 mg PO DAILY 01/11/25 01/11/25 History magnesium oxide 400 mg PO QAM 01/11/25 01/11/25 History multivitamin 1 tab PO DAILY 01/11/25 01/11/25 History nitroglycerin 0.4 mg sublingual 0.4 mg sublingual .EVERY 5 MINUTES 01/11/25 01/11/25 History tablet (Nitrostat) PRN Chest Pain omega-3s 300 [id number]-[id number] 1 cap PO DAILY 01/11/25 01/11/25 History [id number] oil 1,000 mg capsule (Dorado-3 Fish Oil) pantoprazole 20 mg tablet,delayed 20 mg PO QAM 01/11/25 01/11/25 History release sertraline 25 mg tablet 25 mg PO DAILY 01/11/25 01/11/25 History Allergies Allergy/AdvReac Type Severity Reaction Status Date / Time crab Allergy Unknown Unknown Verified 01/11/25 17:42 Iodinated Contrast Media AdvReac Unknown HEART Verified 01/11/25 17:42 PALPITATIONS piroxicam AdvReac Unknown STOMACH Verified 01/11/25 17:42 UPSET, ITCHING simvastatin AdvReac Unknown ITCHING Verified 01/11/25 17:42 Past Med/Surg History Problem List (Updated 01/11/25 @ 23:17 by Juma Schulte PA-C) HTN (hypertension) Interstitial lung abnormality present on imaging study History of CVA (cerebrovascular accident) UTI (urinary tract infection) (Acute) Altered mental state Fracture of proximal phalanx of toe of right foot (Acute) Fall (Acute) Hyperlipidemia Abnormal nuclear stress test 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 STEMI (ST elevation myocardial infarction) (Acute) Hx of tonsillectomy (Acute) Sinus node dysfunction Stroke Medical History BPH (benign prostatic hyperplasia) Family history of diabetes mellitus Hearing deficit Migraine Pacemaker Surgical History History of heart artery stent History of cardiac cath Social History Smoking Status: Never smoker Hx Alcohol Use: No Hx Substance Use: No Preferred Language: Mohawk Communication Ability: Effective 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 Beliefs That Will Affect Care: None Current Living Situation: Spouse Feels Safe at Home: Yes Assistive Devices: Glasses Review of Systems A total of 10 systems reviewed and were otherwise negative Physical Exam Vital Signs Vital Signs - 24 hr 01/11/25 14:59 01/11/25 16:17 01/11/25 16:30 Temperature 36.6 C Temperature Source Temporal Artery Scan Pulse Rate 76 80 80 Pulse Rate from SpO2 Sensor Respiratory Rate 20 Blood Pressure 130/54 L 119/70 123/91 Blood Pressure Mean 79 98 102 Pulse Oximetry 93 92 92 Oxygen Delivery Method Room Air Sepsis Recent Fever Within 48 Hours No Sepsis New/Unexplained Change in Mental Status N/A Sepsis Action Taken by Nursing No Action Required 01/11/25 16:46 01/11/25 16:46 01/11/25 17:09 Temperature Temperature Source Pulse Rate 72 71 Pulse Rate from SpO2 Sensor 71 Respiratory Rate 22 Blood Pressure 138/64 Blood Pressure Mean 88 Pulse Oximetry 93 94 Oxygen Delivery Method Room Air Sepsis Recent Fever Within 48 Hours Sepsis New/Unexplained Change in Mental Status Sepsis Action Taken by Nursing 01/11/25 17:30 01/11/25 18:00 Temperature Temperature Source Pulse Rate 71 94 H Pulse Rate from SpO2 Sensor 71 Respiratory Rate 22 22 Blood Pressure 139/71 123/80 Blood Pressure Mean 93 94 Pulse Oximetry 95 Oxygen Delivery Method Sepsis Recent Fever Within 48 Hours Sepsis New/Unexplained Change in Mental Status Sepsis Action Taken by Nursing VITAL SIGNS - Vital signs and nursing notes were reviewed. Stable and afebrile. GENERAL -89-year-old male appearing his stated age who is in no acute distress. Communicates well with provider and answers questions appropriately. SKIN - Without rashes. No meningeal or petechial rash. Small 1 cm laceration to the webspace between toe 4 and 5 of the right foot. This is superficial and not deep. No active bleeding. HEAD - NC/AT. EYES - PERRL with EOMI bilaterally. Sclera anicteric. EARS - No deformities of external structures noted on gross examination bilaterally. No hemotympanum. NOSE - Midline and without cyanosis. No epistaxis or purulent drainage noted. Septum midline without deviation or septal hematoma noted. MOUTH/OROPHARYNX - Without perioral cyanosis. Buccal mucosa pink and moist and without leukoplakia. Tongue midline with equal elevation of palate bilaterally. No tonsillar hypertrophy, erythema, or exudates noted. Fair dentition noted. NECK - Neck with FROM. No nuchal rigidity. LUNGS - CTA CARDIAC - RRR ABDOMEN - Abdominal contour normal without pulsations or visible masses. BS normoactive all four quadrants. No tenderness, palpable masses, hepatosplenomegaly, or ascites noted. EXTREMITIES - No clubbing or peripheral cyanosis. +5/5 strength noted in UE/LE bilaterally. Right fifth toe tender. Skin as above. Ecchymosis to the right foot without deformity. NEUROLOGIC - Cranial nerves II through XII grossly intact. PSYCH -alert, oriented to pleasant on examination. Course Administered Medications Heparin Sodium (Porcine) (Heparin Sod 5,000 Unit/0.5 Ml Vial) 5,000 units SQ Q12 JOSESITO Stop: 02/10/25 21:44 Last Admin: 01/11/25 22:22 Dose: 5,000 units Documented By: POLINA Ceftriaxone Sodium (Rocephin) 2,000 mg in 50 mls @ 100 mls/hr IV Q24H JOSESITO Stop: 01/16/25 19:59 Last Infusion: 01/11/25 22:20 Dose: Infused Documented By: Admin: 01/11/25 21:48 Dose: 100 mls/hr Documented By: POLINA Sodium Chloride (Nss) 1,000 mls @ 80 mls/hr IV .[id number] JOSESITO Stop: 01/12/25 08:14 Last Admin: 01/11/25 22:22 Dose: 80 mls/hr Documented By: POLINA Discontinued Medications Diphtheria/Pertussis/Tetanus Vacc (Diphther/Tetan/Pertus Vaccine (Tdap, Adol/Adult) 0.5ml) 0.5 ml IM .ONCE ONE Stop: 01/11/25 17:53 Last Admin: 01/11/25 18:05 Dose: 0.5 ml Documented By: BERNADETTE Cefazolin Sodium (Ancef 2000mg) 2,000 mg in 15 mls @ 3.75 mls/min IV NOW STA Stop: 01/11/25 17:26 Last Admin: 01/11/25 17:30 Dose: 3.75 mls/min Documented By: JESÚS Medical Decision Making Laboratory Data 01/11/25 16:24 01/11/25 16:24 Lab Results 01/11/25 01/11/25 01/11/25 Range/Units 16:24 16:45 17:51 WBC 4.74 L (4.8-10.8) K/ul RBC 4.63 L (4.70-6.10) M/uL Hgb 14.9 (14.0-18.0) g/dl Hct 43.0 (42.0-52.0) % MCV 92.9 (80.0-100.0) fL MCH 32.2 (25.0-34.0) pg MCHC 34.7 (32.0-36.0) g/dL RDW Std Deviation 51.0 H (36.4-46.3) fL RDW Coeff of Phi 14.8 H (11.5-14.5) % Plt Count 117 L (130-400) K/uL MPV 9.9 (9.4-12.4) fL Immature Gran % (Auto) 0.6 % Neut % (Auto) 88.9 % Lymph % (Auto) 4.6 % [place] % (Auto) 5.5 % Eos % (Auto) 0.0 % Baso % (Auto) 0.4 % Neut # (Auto) 4.21 (1.40-6.50) K/uL Lymph # (Auto) 0.22 L (1.20-3.40) K/uL [place] # (Auto) 0.26 (0.11-0.59) K/uL Eos # (Auto) 0.00 (0.00-0.50) K/uL Baso # (Auto) 0.02 (0.00-0.20) K/uL Immature Gran # (Auto) 0.03 (0.01-0.20) K/uL PT 11.5 (9.0-12.0) Seconds INR 1.1 (0.9-1.1) APTT 28 (21-31) Seconds PTT Ratio 1.0 Sodium 135 L (136-145) mmol/L Potassium 4.1 (3.5-5.1) mmol/L Chloride 104 (98-107) mmol/L Carbon Dioxide 27 (21-32) mmol/L Anion Gap 4 (3-11) BUN 18 (6-23) mg/dl Creatinine 0.96 (0.6-1.4) mg/dl Est Cr Clr Drug Dosing Not Reportable eGFR 76.50 BUN/Creatinine Ratio 18.8 (10-20) Glucose 128 H (70-99(Fasting)) mg/dl Calcium 8.7 (8.6-10.3) mg/dl Total Bilirubin 1.5 H (0.2-1.0) mg/dl AST 41 H (13-39) U/L ALT 28 (7-52) U/L Alkaline Phosphatase 56 (34-104) U/L Troponin I High Sens 18.5 (0-20) pg/ml Total Protein 6.8 (6.0-8.3) gm/dl Albumin 3.8 (3.4-5.0) gm/dl Globulin 3.0 (2.5-4.0) gm/dl Albumin/Globulin Ratio 1.3 (0.9-2) Procalcitonin 0.28 (0-0.5) ng/ml TSH 0.773 (0.300-4.500) uIu/ml Urine Color Yellow Urine Appearance Clear (Clear) Urine pH 5.5 (4.5-7.5) Ur Specific Loyal >= 1.030 (1.000-1.030) Urine Protein 2+ H (Negative) Urine Glucose (UA) Negative (Negative) Urine Ketones Trace H (Negative) Urine Blood 2+ H (Negative) Urine Nitrite Negative (Negative) Urine Bilirubin Negative (Negative) Urine Urobilinogen Negative (Negative) Ur Leukocyte Esterase Negative (Negative) Urine RBC 6-10 H (0-2) /hpf Urine WBC 0-5 (0-5) /hpf Ur Epithelial Cells 0-2 (0-2) /hpf Urine Bacteria 2+ H (None Seen) Urine Mucus Present A (None Prsent) Adenovirus (PCR) Not Detected (NotDetected) B. pertussis DNA (PCR) Not Detected (NotDetected) B.parapertussis DNA PCR Not Detected (NotDetected) C. pneumoniae DNA (PCR) Not Detected (NotDetected) Coronavirus OC43 (PCR) Not Detected (NotDetected) Coronavirus HKU1 (PCR) Not Detected (NotDetected) Coronavirus 229E (PCR) Not Detected (NotDetected) SARS-CoV-2 (PCR) Not Detected (NotDetected) Coronavirus NL63 (PCR) Not Detected (NotDetected) Human Metapneumovir PCR Not Detected (NotDetected) Influenza Type A (PCR) Not Detected (NotDetected) Influenza Type B (PCR) Not Detected (NotDetected) M. pneumoniae (PCR) Not Detected (NotDetected) Parainfluenza 1 (PCR) Not Detected (NotDetected) Parainfluenza 2 (PCR) Not Detected (NotDetected) Parainfluenza 3 (PCR) Not Detected (NotDetected) Parainfluenza 4 (PCR) Not Detected (NotDetected) RSV (PCR) Not Detected (NotDetected) Entero/Rhino (PCR) Not Detected (NotDetected) Imaging Data Radiologist's Impression: Abdomen/Pelvis CT 01/11/25 15:27 EXAMINATION: CT of the chest, abdomen and pelvis performed without the administration of IV contrast TECHNIQUE: Helical CT images from the lung apices through the symphysis pubis were obtained without contrast. Coronal and sagittal reformatted images were generated at a workstation for further assessment. Dose reduction techniques were achieved by using automatic exposure control and/or adjustment of mA and/or kV according to patient size and/or use of iterative reconstruction technique. COMPARISON: None HISTORY: Fall FINDINGS: Lines and tubes: None Mediastinum/Neck Base: No thyroid nodules. Central tracheobronchial tree is patent. Heart size is enlarged. There is a left chest wall dual-lead AICD. Coronary stents appear to be present.. No pericardial effusion. Normal thoracic vasculature. No thoracic lymphadenopathy. Lungs: Moderate, irregular interstitial opacities, extending throughout the peribronchovascular regions of the lower lobes and lingula, with mild involvement of the posterior right upper lobe. No honeycombing. No significant bronchiectasis. No consolidation. No pleural effusion or pneumothorax. Liver: No suspicious liver lesions. Portal veins appear patent. Gallbladder: Cholecystectomy changes. Spleen: Normal size. Pancreas: No suspicious pancreatic lesions. The pancreatic duct is not dilated. Adrenal glands: No adrenal nodules. Kidneys: No hydronephrosis or obstructing renal stones. Bladder / Pelvic organs: Unremarkable. Bowel: No bowel obstruction. No abnormal bowel wall thickening. The appendix is unremarkable. Sigmoid diverticulosis without diverticulitis. Lymph nodes: No retroperitoneal, mesenteric, or pelvic lymphadenopathy. Peritoneum / Retroperitoneum: No free fluid or air within the abdomen. Vessels: No infrarenal aortic aneurysm. Bones and soft tissues: Degenerative changes of the spine. No acute osseous normality. IMPRESSION: No acute finding in the chest, abdomen or pelvis. Findings of interstitial lung disease, has a basilar predominance, with significant involvement of the peribronchovascular regions. Consider NSIP, cryptogenic organizing pneumonia, or chronic hypersensitivity pneumonitis. Electronically signed by Adam Ricardo 01-11-2025 4:39 PM Ankle X-Ray 01/11/25 15:27 INDICATION: Pain and injury. TECHNIQUE: 3 views of the right foot. 3 views of the right ankle. COMPARISON: No relevant priors. FINDINGS: Nondisplaced fracture of the distal aspect of the proximal phalanx, fifth digit. Remaining osseous structures intact. No dislocation. No lytic or blastic bony lesions seen. Os trigonum noted. Mild diffuse joint space loss. Soft tissue swelling. IMPRESSION: Nondisplaced fracture of the distal aspect of the proximal phalanx, fifth digit. Electronically signed by Frank Jacob 01-11-2025 4:[address] 01/11/25 15:27 CT cervical spine without IV contrast History: Trauma Comparison: None Technique: Using multidetector thin collimation helical acquisition technique, axial, coronal and sagittal CT images through the cervical spine were obtained without intravenous contrast. Dose reduction techniques were achieved by using automatic exposure control and/or adjustment of mA and/or kV according to patient size and/or use of iterative reconstruction technique. Findings: The cervical vertebrae are normally aligned. Straightened cervical lordosis. No acute fracture or subluxation. No prevertebral edema. Severe discogenic degenerative changes at C5-6 and C6-7 where there are prominent anterior bridging osteophytes. No abnormality of the paraspinous soft tissues. Impression: No acute fracture or traumatic subluxation. Electronically signed by Adam Ricardo 01-11-2025 4:[address] 01/11/25 15:27 EXAMINATION: CT of the chest, abdomen and pelvis performed without the administration of IV contrast TECHNIQUE: Helical CT images from the lung apices through the symphysis pubis were obtained without contrast. Coronal and sagittal reformatted images were generated at a workstation for further assessment. Dose reduction techniques were achieved by using automatic exposure control and/or adjustment of mA and/or kV according to patient size and/or use of iterative reconstruction technique. COMPARISON: None HISTORY: Fall FINDINGS: Lines and tubes: None Mediastinum/Neck Base: No thyroid nodules. Central tracheobronchial tree is patent. Heart size is enlarged. There is a left chest wall dual-lead AICD. Coronary stents appear to be present.. No pericardial effusion. Normal thoracic vasculature. No thoracic lymphadenopathy. Lungs: Moderate, irregular interstitial opacities, extending throughout the peribronchovascular regions of the lower lobes and lingula, with mild involvement of the posterior right upper lobe. No honeycombing. No significant bronchiectasis. No consolidation. No pleural effusion or pneumothorax. Liver: No suspicious liver lesions. Portal veins appear patent. Gallbladder: Cholecystectomy changes. Spleen: Normal size. Pancreas: No suspicious pancreatic lesions. The pancreatic duct is not dilated. Adrenal glands: No adrenal nodules. Kidneys: No hydronephrosis or obstructing renal stones. Bladder / Pelvic organs: Unremarkable. Bowel: No bowel obstruction. No abnormal bowel wall thickening. The appendix is unremarkable. Sigmoid diverticulosis without diverticulitis. Lymph nodes: No retroperitoneal, mesenteric, or pelvic lymphadenopathy. Peritoneum / Retroperitoneum: No free fluid or air within the abdomen. Vessels: No infrarenal aortic aneurysm. Bones and soft tissues: Degenerative changes of the spine. No acute osseous normality. IMPRESSION: No acute finding in the chest, abdomen or pelvis. Findings of interstitial lung disease, has a basilar predominance, with significant involvement of the peribronchovascular regions. Consider NSIP, cryptogenic organizing pneumonia, or chronic hypersensitivity pneumonitis. Electronically signed by Adam Ricardo 01-11-2025 4:39 PM Foot X-Ray 01/11/25 15:27 INDICATION: Pain and injury. TECHNIQUE: 3 views of the right foot. 3 views of the right ankle. COMPARISON: No relevant priors. FINDINGS: Nondisplaced fracture of the distal aspect of the proximal phalanx, fifth digit. Remaining osseous structures intact. No dislocation. No lytic or blastic bony lesions seen. Os trigonum noted. Mild diffuse joint space loss. Soft tissue swelling. IMPRESSION: Nondisplaced fracture of the distal aspect of the proximal phalanx, fifth digit. Electronically signed by Frank Jacob 01-11-2025 4:[address] 01/11/25 15:28 CT head without contrast History: Trauma Comparison: 03/20/2017 Technique: Using multidetector thin collimation helical acquisition technique, axial, coronal and sagittal CT images from the skull base to the vertex were obtained without intravenous contrast. Dose reduction techniques were achieved by using automatic exposure control and/or adjustment of mA and/or kV according to patient size and/or use of iterative reconstruction technique. Findings: No intracranial hemorrhage, mass-effect, or midline shift. The ventricles are proportionate to the cerebral sulci. The swartz to white matter differentiation of the cerebral hemispheres is preserved. The basal cisterns are patent. Chronic left basal ganglia infarct. There is moderate cerebral atrophy. Moderate, patchy low-attenuation changes in the white matter, most suggestive of sequelae of chronic small vessel ischemic disease. The visualized paranasal sinuses are clear. Mastoid air cells are clear. Impression: No acute intracranial pathology. Electronically signed by Adam Ricardo 01-11-2025 4:33 PM MDM Narrative Patient was seen and evaluated as above in room D02b. Review was performed of triage nursing notes and vital signs. I did review pertinent previous visits and patient history. After obtaining a thorough history and physical examination the above work up was performed. Patient presents to us today status post fall getting out of bed. Son at bedside notes he does seem a bit weak diffusely but not unilaterally. Last known well would have been when the patient went to bed last night, as when he awoke today he fell. He would be outside of the window for TNK at this time and also there is reported head injury and the patient is on Plavix. There is a discrepancy between the time he fell in regard to when I asked the patient/ and the son. Patient felt he fell this morning sometime around 9 AM and the thought later in the morning however the son at bedside notes he received a phone call around 7 AM today that the patient had fallen. NIHSS currently 0. No unilateral deficit. Patient overall appears tired. EKG was performed. This reveals per my interpretation sinus rhythm with first- degree AV block at a rate of 71 bpm. QTc 393. QRS 86. No ST elevation on this rhythm tracing. Options of care were discussed with the patient. IV access with established. Labs were drawn. There is leukopenia 4.74. No concerning anemia. Mild thrombocytopenia 117. Mild hyperglycemia 128. T. bili 1.5 with AST at 41. Urinalysis reveals possible UTI. BioFire negative. CT scans were performed of the head, neck, chest/abdomen/pelvis to further assess as well as x-ray of the right foot. CT scans were performed without contrast noting the patient's allergy in the EMR. Although the allergy lists the reaction to be more of heart palpitations the patient is not able to confirm or deny this allergy neither is at bedside. I am concerned that with this allergy/reaction listed there may be potentially a worse reaction and it is felt that the risk outweighs benefit therefore we will hold off on contrast at this time. Imaging as above. These were overall reassuring from a traumatic standpoint. X-ray of the right foot does show what appears to be a nondisplaced fracture of the distal aspect of the proximal phalanx, first digit. This is near the webspace laceration but the laceration is likely separate and not open fracture. However, to be thorough we will provide prophylactic IV antibiotics in the event that this could have at 1 point been open injury. IV ceftriaxone ordered. Tetanus vaccine also updated. I do believe that further evaluation and management in regard to the patient's presentation of weakness is warranted in the inpatient setting with possible infectious etiology noting the UTI. Incidentally on the chest CT there was lung abnormalities noted however the patient does not seem to have any acute respiratory complaints. In regard to the right fifth toe, consent was obtained and the area was cleansed with sterile saline and dilute iodine. Area was copiously irrigated with sterile saline. Patient denies any iodine allergy. I did apply Adaptic dressing followed by gauze to the regions. No indication to repair at this time as it is overall superficial. The webspace between the 4th and 5th toe was well-padded. 0- I spoke with Dr. Reza of orthopedics. The fracture site is a bit distant from the laceration therefore open fracture less likely. However I did still cover the patient with IV antibiotics, IV Ancef. This would also cover the urine. Per review of the EMR tetanus vaccine does not appear to be in date. Dr Reza and I did agree with hard soled shoe, weightbearing as tolerated. Case discussed with the hospitalist service. Please refer to further documentation regarding his stay. In the evaluation and treatment of this patient the following differential diagnoses were entertained: CVA, TIA, infection, fracture, dislocation, subluxation, contusion, among others. Impression & Plan Fall, Fracture of proximal phalanx of toe of right foot, UTI (urinary tract infection) Discharge Plan Visit Data Chief Complaint: Fall Stated Complaint: FALL, WEAKNESS ED Provider: Isaura Beltrán ED Midlevel Provider: Juma Schulte Discharge Problem: Fall, Fracture of proximal phalanx of toe of right foot, UTI (urinary tract infection) Patient Disposition: Admitted As Inpatient Condition: Good Discharge Instructions Interventions: ED Discharge Assessment Last Done: 01/11/25 20:00
--- NOTE | 2025-01-11 15:40 | Emergency Department Note ---
ED Visit Note I was consulted by the Advanced Practice Provider, Juma Schulte PA-C. I performed a substantive portion of the visit. This includes aspects of: History: Patient is an 89-year-old male presenting for fall. Patient fell out of his bed today and struck the nightstand. He is complaining of right shoulder pain. He is not on any anticoagulation or antiplatelet therapy. He reports no loss of consciousness. MDM: - Laboratory workup interpreted by myself showed a slightly elevated total bilir ubin level (1.5) and elevated AST (41) - CT head wo contrast negative for acute injury - CT cervical spine wo contrast negative for acute injury - CT chest/abdomen/pelvis wo contrast negative for acute traumatic injury in the chest, abdomen or pelvis. - X-ray of the foot and ankle shows nondisplaced fracture of the distal aspect of the proximal phalanx of the fifth digit per radiology. - Patient admitted to hospitalist service for his generalized weakness and falls. .
--- NOTE | 2025-01-11 16:34 | CT Scan Report ---
CT head without contrast History: Trauma Comparison: 03/20/2017 Technique: Using multidetector thin collimation helical acquisition technique, axial, coronal and sagittal CT images from the skull base to the vertex were obtained without intravenous contrast. Dose reduction techniques were achieved by using automatic exposure control and/or adjustment of mA and/or kV according to patient size and/or use of iterative reconstruction technique. Findings: No intracranial hemorrhage, mass-effect, or midline shift. The ventricles are proportionate to the cerebral sulci. The swartz to white matter differentiation of the cerebral hemispheres is preserved. The basal cisterns are patent. Chronic left basal ganglia infarct. There is moderate cerebral atrophy. Moderate, patchy low-attenuation changes in the white matter, most suggestive of sequelae of chronic small vessel ischemic disease. The visualized paranasal sinuses are clear. Mastoid air cells are clear. Impression: No acute intracranial pathology. Electronically signed by Adam Ricardo 01-11-2025 4:33 PM
--- NOTE | 2025-01-11 16:39 | CT Scan Report ---
EXAMINATION: CT of the chest, abdomen and pelvis performed without the administration of IV contrast TECHNIQUE: Helical CT images from the lung apices through the symphysis pubis were obtained without contrast. Coronal and sagittal reformatted images were generated at a workstation for further assessment. Dose reduction techniques were achieved by using automatic exposure control and/or adjustment of mA and/or kV according to patient size and/or use of iterative reconstruction technique. COMPARISON: None HISTORY: Fall FINDINGS: Lines and tubes: None Mediastinum/Neck Base: No thyroid nodules. Central tracheobronchial tree is patent. Heart size is enlarged. There is a left chest wall dual-lead AICD. Coronary stents appear to be present.. No pericardial effusion. Normal thoracic vasculature. No thoracic lymphadenopathy. Lungs: Moderate, irregular interstitial opacities, extending throughout the peribronchovascular regions of the lower lobes and lingula, with mild involvement of the posterior right upper lobe. No honeycombing. No significant bronchiectasis. No consolidation. No pleural effusion or pneumothorax. Liver: No suspicious liver lesions. Portal veins appear patent. Gallbladder: Cholecystectomy changes. Spleen: Normal size. Pancreas: No suspicious pancreatic lesions. The pancreatic duct is not dilated. Adrenal glands: No adrenal nodules. Kidneys: No hydronephrosis or obstructing renal stones. Bladder / Pelvic organs: Unremarkable. Bowel: No bowel obstruction. No abnormal bowel wall thickening. The appendix is unremarkable. Sigmoid diverticulosis without diverticulitis. Lymph nodes: No retroperitoneal, mesenteric, or pelvic lymphadenopathy. Peritoneum / Retroperitoneum: No free fluid or air within the abdomen. Vessels: No infrarenal aortic aneurysm. Bones and soft tissues: Degenerative changes of the spine. No acute osseous normality. IMPRESSION: No acute finding in the chest, abdomen or pelvis. Findings of interstitial lung disease, has a basilar predominance, with significant involvement of the peribronchovascular regions. Consider NSIP, cryptogenic organizing pneumonia, or chronic hypersensitivity pneumonitis. Electronically signed by Adam Ricardo 01-11-2025 4:39 PM
--- NOTE | 2025-01-11 16:41 | CT Scan Report ---
CT cervical spine without IV contrast History: Trauma Comparison: None Technique: Using multidetector thin collimation helical acquisition technique, axial, coronal and sagittal CT images through the cervical spine were obtained without intravenous contrast. Dose reduction techniques were achieved by using automatic exposure control and/or adjustment of mA and/or kV according to patient size and/or use of iterative reconstruction technique. Findings: The cervical vertebrae are normally aligned. Straightened cervical lordosis. No acute fracture or subluxation. No prevertebral edema. Severe discogenic degenerative changes at C5-6 and C6-7 where there are prominent anterior bridging osteophytes. No abnormality of the paraspinous soft tissues. Impression: No acute fracture or traumatic subluxation. Electronically signed by Adam Ricardo 01-11-2025 4:40 PM
--- NOTE | 2025-01-11 16:48 | XRay Report ---
INDICATION: Pain and injury. TECHNIQUE: 3 views of the right foot. 3 views of the right ankle. COMPARISON: No relevant priors. FINDINGS: Nondisplaced fracture of the distal aspect of the proximal phalanx, fifth digit. Remaining osseous structures intact. No dislocation. No lytic or blastic bony lesions seen. Os trigonum noted. Mild diffuse joint space loss. Soft tissue swelling. IMPRESSION: Nondisplaced fracture of the distal aspect of the proximal phalanx, fifth digit. Electronically signed by Frank Jacob 01-11-2025 4:48 PM
[2025-01-11 16:57] LABS: Basophils # (auto) 0.02 K/uL (0.00-0.20); Basophils % (auto) 0.4 %; Hemoglobin 14.9 g/dl (14.0-18.0); Immature Granulocytes # (auto) 0.03 K/uL (0.01-0.20); Immature Granulocytes % (auto) 0.6 %; Lymphocytes # (auto) 0.22 K/uL (1.20-3.40); Lymphocytes % (auto) 4.6 %; Mean Corpuscular Hemoglobin 32.2 pg (25.0-34.0); Mean Corpuscular Hgb Conc 34.7 g/dL (32.0-36.0); Mean Corpuscular Volume 92.9 fL (80.0-100.0); Mean Platelet Volume 9.9 fL (9.4-12.4); Monocytes # (auto) 0.26 K/uL (0.11-0.59); Monocytes % (auto) 5.5 %; Neutrophils # (auto) 4.21 K/uL (1.40-6.50); Neutrophils % (auto) 88.9 %; Platelet Count 117 K/uL (130-400); RDW Coefficient of Variation 14.8 % (11.5-14.5); Red Blood Count 4.63 M/uL (4.70-6.10); White Blood Count 4.74 K/ul (4.8-10.8)
[2025-01-11 17:07] LABS: Alanine Aminotransferase 28 U/L (7-52); Albumin Globulin Ratio 1.3 (0.9-2); Albumin Level 3.8 gm/dl (3.4-5.0); Alkaline Phosphatase 56 U/L (34-104); Anion Gap 4 (3-11); Aspartate Aminotransferase 41 U/L (13-39); BUN Creatinine Ratio 18.8 (10-20); Bilirubin,Total 1.5 mg/dl (0.2-1.0); Blood Urea Nitrogen 18 mg/dl (6-23); Calcium 8.7 mg/dl (8.6-10.3); Carbon Dioxide 27 mmol/L (21-32); Chloride 104 mmol/L (98-107); Glucose 128 mg/dl (70-99(Fasting)); Potassium 4.1 mmol/L (3.5-5.1); Sodium 135 mmol/L (136-145); Total Protein 6.8 gm/dl (6.0-8.3)
[2025-01-11 17:15] LABS: Troponin I High Sensitivity 18.5 pg/ml (0-20)
[2025-01-11 17:20] LABS: INR 1.1 (0.9-1.1); Partial Thromboplastin Time 28 Seconds (21-31); Prothrombin Time 11.5 Seconds (9.0-12.0)
[2025-01-11 17:21] LABS: Thyroid Stimulating Hormone 0.773 uIu/ml (0.300-4.500)
[2025-01-11] MEDS: ceFAZolin 2000MG 2,000 MG/15 ML SYR IV STA (17:30)
--- NOTE | 2025-01-11 17:59 | History & Physical Report ---
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 Ref er to [facility] for further details. Head CT with no acute intracranial pathology. Cervical spine CT without evidence of fracture or traumatic subluxation. Right foot and ankle XR imaging notable for a nondisplaced fracture of the distal aspect of the proximal phalanx, fifth digit >> ED provider discussed finding with on-call ortho surgeon, Dr. Reza. Continue conservative management with WBAT and postop shoe application. No need for surgical intervention. Formal ortho consult pending. Obtain PT/OT evals. Check orthostatics. Fall precautions. (3) UTI (urinary tract infection): Plan: UA with 2+ bacteria. Cover with IV Rocephin pending urine culture results. (4) Altered mental state: Plan: Suspect 2/2 above infection; head CT reviewed and w/o any acute intracranial findings. Blood cultures pending. Quite dry on exam - will give gentle IVF x 1 bag for n ow. Need to encourage po intake. (5) History of CVA (cerebrovascular accident): Plan: Baseline residual expressive aphasia s/p prior left basal ganglia stroke in February 2017 which was treated with thrombolytic therapy. No issues with swallowing at baseline; tolerates a soft diet at home without any complications. Started with minced/moist diet, aspiration precautions. Continue ASA and statin. (6) Interstitial lung abnormality present on imaging study: Plan: Chest CT and CTAP noting findings of interstitial lung disease with a basilar predominance and significant involvement of the peribronchovascular regions. No prior diagnosis of such; consider NSIP, cryptogenic organizing pneumonia or chronic hypersensitivity pneumonitis >> will need outpatient pulmonology referral. (7) HTN (hypertension): Plan: BP overall stable but relatively low. Hold home losartan and HCTZ for now. Reassess BP trend in AM. Other Chronic Medical Conditions: Depression - Continue Zoloft. Recurrent Angina - Continue Imdur. HLD - Continue ASA and statin as per above. GERD - Continue PPI. DVT Prophylaxis: SQ Heparin Code Status: FULL CODE - Per discussion with the patient's son, Elver, over the phone. PCP: Nils Foley MD Disposition: Admit to med/telemetry for further inpatient evaluation and management. Patient seen in collaboration with Dr. Houston. Please see addendum. I spent a total of 65 minutes coordinating, documenting, and providing care for this patient excluding time spent in the performance of separately billed services or time spent by another provider/QHP. This included personally reviewing all current laboratories and imaging studies, medical reconciliation, outpatient chart review and discussion with specialists. This chart was completed in part utilizing Speech Voice Recognition Software. Grammatical errors, random word insertions, pronoun errors, and incomplete sentences are an occasional consequence of this system due to software limitations, ambient noise, and hardware issues. Any formal questions or concerns about the content, text, or information contained within the body of this dictation should be directly addressed to the provider for clarification. 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 Patient mostly only A&O to himself at the time of my evaluation. Does understand he is in the hospital but unable to identify the correct facility; also unaware of the current date/time. Does recall having a fall earlier today and hitting his head. His son, Elver, and his , Audra, were present at the bedside earlier per discussion with the ED provider. Unfortunately no family is present at bedside at the time of my evaluation. Patient denies any pain or discomfort with direct questioning. Patient notably somnolent during my evaluation but is easily awoken with both verbal and tactile stimuli. Was able to get in contact with the patient's son, Elver, over the phone to gather additional history. Patient currently with living at home with his . Fell out of bed this morning whilst attempting to stand up and reportedly hit his head although this was unwitnessed. Patient is typically A&Ox4 and able to conduct ADLs without significant issue, however, he has been progressively weak and lethargic the past several days. He does not typically use any assistive devices for ambulation but unfortunately was so notably weak today that he was using his 's walker to get around the house. Did endorse a mild headache after the fall but no dizziness, lightheadedness or N/V. Noted to have sustained a laceration between the 4th and 5th digits on his right foot during the fall. He seems more confused as well. Known baseline expressive aphasia s/p prior left basal ganglia CVA in February 2017. No issues with swallowing at baseline; tolerates a soft foods diet at home without any complications. No reported fevers or chills. No recent cough or sinus congestion. No reported issues with urinary or bowel habits changes. Has 2 children whom live nearby and provide him with support PRN; no established home health services. Head CT with no acute intracranial pathology. Cervical spine CT without evidence of fracture or traumatic subluxation. Chest CT and CTAP noting findings of interstitial lung disease with a basilar predominance and significant involvement of the peribronchovascular regions. Right foot and ankle XR imaging notable for a nondisplaced fracture of the distal aspect of the proximal phalanx, fifth digit. Allergies Allergy/AdvReac Type Severity Reaction Status Date / Time crab Allergy Unknown Unknown Verified 01/11/25 17:42 Iodinated Contrast Media AdvReac Unknown HEART Verified 01/11/25 17:42 PALPITATIONS piroxicam AdvReac Unknown STOMACH Verified 01/11/25 17:42 UPSET, ITCHING simvastatin AdvReac Unknown ITCHING Verified 01/11/25 17:42 Home Medications Medication Instructions Recorded Confirmed Type aspirin 81 mg tablet,delayed 162 mg PO QAM 01/11/25 01/11/25 History release atorvastatin 80 mg tablet 80 mg PO DAILY 01/11/25 01/11/25 History clopidogrel 75 mg tablet 75 mg PO DAILY 01/11/25 01/11/25 History hydrochlorothiazide 12.5 mg capsule 12.5 mg PO UD 01/11/25 01/11/25 History isosorbide mononitrate 30 mg 30 mg PO QAM 01/11/25 01/11/25 History tablet,extended release 24 hr losartan 25 mg tablet 20 mg PO DAILY 01/11/25 01/11/25 History magnesium oxide 400 mg PO QAM 01/11/25 01/11/25 History multivitamin 1 tab PO DAILY 01/11/25 01/11/25 History nitroglycerin 0.4 mg sublingual 0.4 mg sublingual .EVERY 5 MINUTES 01/11/25 01/11/25 History tablet (Nitrostat) PRN Chest Pain omega-3s 300 no-lmb-oay-other 1 cap PO DAILY 01/11/25 01/11/25 History [id number]-yrms oil 1,000 mg capsule (Caroleen-3 Fish Oil) pantoprazole 20 mg tablet,delayed 20 mg PO QAM 01/11/25 01/11/25 History release sertraline 25 mg tablet 25 mg PO DAILY 01/11/25 01/11/25 History Past Med/Surg History Problem List (Updated 01/11/25 @ 19:49 by Richa Giordano PA-C) HTN (hypertension) Interstitial lung abnormality present on imaging study History of CVA (cerebrovascular accident) UTI (urinary tract infection) Altered mental state Fracture of proximal phalanx of toe of right foot Fall Hyperlipidemia Abnormal nuclear stress test 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 STEMI (ST elevation myocardial infarction) (Acute) Hx of tonsillectomy (Acute) Sinus node dysfunction Stroke Medical History BPH (benign prostatic hyperplasia) Family history of diabetes mellitus Hearing deficit Migraine Pacemaker Surgical History History of heart artery stent History of cardiac cath Social History Smoking Status: Never smoker Hx Alcohol Use: No Hx Substance Use: No Preferred Language: Wallisian Communication Ability: Effective [employer] Guid[employer] Counselor Required: No Beliefs That Will Affect Care: None Current Living Situation: Spouse Feels Safe at Home: Yes Assistive Devices: Glasses Review of Systems Review of Systems: Unable to properly obtain 2/2 patient's altered mentation level - denies any pain when directly asked. Physical Exam Physical Exam: General: Elderly M. NAD. Laying down in bed. Quite somnolent but arousable with verbal and tactile stimuli. A&O only to self. HEENT: Normocephalic. Bruising on superior aspect of scalp. Conjunctivae normal. External ear/nose normal, oropharynx dry. Respiratory: Normal respiratory effort, lungs clear to auscultation bilaterally. No accessory muscle use. Cardiovascular: Regular rate and rhythm. Trace BLE edema. Abdomen/GI: Normal bowel sounds, soft. Nondistended, nontender to palpation in all quadrants. Extremities/MSK: Gauze bandaging covering R foot - did NOT directly visualize wound b/n 4th and 5th digits of R foot. Postoperative shoe on R foot. Results & Data Results & Data Vital Signs (Past 12 Hours) Vital Signs Temp Pulse Resp BP Pulse Ox O2 Del Method 01/11/25 16:46 93 Room Air 01/11/25 16:46 72 01/11/25 16:30 80 123/91 92 01/11/25 16:17 80 119/70 92 01/11/25 14:59 36.6 C 76 20 130/54 L 93 Room Air Laboratory Results Short CBC 01/11/25 Range/Units 16:24 WBC 4.74 L (4.8-10.8) K/ul Hgb 14.9 (14.0-18.0) g/dl Hct 43.0 (42.0-52.0) % Plt Count 117 L (130-400) K/uL [facility] 01/11/25 16:24 Sodium 135 L Potassium 4.1 Chloride 104 Carbon Dioxide 27 BUN 18 Creatinine 0.96 Glucose 128 H Calcium 8.7 Liver Function 01/11/25 Range/Units 16:24 Total Bilirubin 1.5 H (0.2-1.0) mg/dl AST 41 H (13-39) U/L ALT 28 (7-52) U/L Alkaline Phosphatase 56 (34-104) U/L Albumin 3.8 (3.4-5.0) gm/dl Diagnostic Findings Abdomen/Pelvis CT 01/11/25 15:27 EXAMINATION: CT of the chest, abdomen and pelvis performed without the administration of IV contrast TECHNIQUE: Helical CT images from the lung apices through the symphysis pubis were obtained without contrast. Coronal and sagittal reformatted images were generated at a workstation for further assessment. Dose reduction techniques were achieved by using automatic exposure control and/or adjustment of mA and/or kV according to patient size and/or use of iterative reconstruction technique. COMPARISON: None HISTORY: Fall FINDINGS: Lines and tubes: None Mediastinum/Neck Base: No thyroid nodules. Central tracheobronchial tree is patent. Heart size is enlarged. There is a left chest wall dual-lead AICD. Coronary stents appear to be present.. No pericardial effusion. Normal thoracic vasculature. No thoracic lymphadenopathy. Lungs: Moderate, irregular interstitial opacities, extending throughout the peribronchovascular regions of the lower lobes and lingula, with mild involvement of the posterior right upper lobe. No honeycombing. No significant bronchiectasis. No consolidation. No pleural effusion or pneumothorax. Liver: No suspicious liver lesions. Portal veins appear patent. Gallbladder: Cholecystectomy changes. Spleen: Normal size. Pancreas: No suspicious pancreatic lesions. The pancreatic duct is not dilated. Adrenal glands: No adrenal nodules. Kidneys: No hydronephrosis or obstructing renal stones. Bladder / Pelvic organs: Unremarkable. Bowel: No bowel obstruction. No abnormal bowel wall thickening. The appendix is unremarkable. Sigmoid diverticulosis without diverticulitis. Lymph nodes: No retroperitoneal, mesenteric, or pelvic lymphadenopathy. Peritoneum / Retroperitoneum: No free fluid or air within the abdomen. Vessels: No infrarenal aortic aneurysm. Bones and soft tissues: Degenerative changes of the spine. No acute osseous normality. IMPRESSION: No acute finding in the chest, abdomen or pelvis. Findings of interstitial lung disease, has a basilar predominance, with significant involvement of the peribronchovascular regions. Consider NSIP, cryptogenic organizing pneumonia, or chronic hypersensitivity pneumonitis. Electronically signed by Adam Ricardo 01-11-2025 4:39 PM Ankle X-Ray 01/11/25 15:27 INDICATION: Pain and injury. TECHNIQUE: 3 views of the right foot. 3 views of the right ankle. COMPARISON: No relevant priors. FINDINGS: Nondisplaced fracture of the distal aspect of the proximal phalanx, fifth digit. Remaining osseous structures intact. No dislocation. No lytic or blastic bony lesions seen. Os trigonum noted. Mild diffuse joint space loss. Soft tissue swelling. IMPRESSION: Nondisplaced fracture of the distal aspect of the proximal phalanx, fifth digit. Electronically signed by Frank Jacob 01-11-2025 4:[address] 01/11/25 15:27 CT cervical spine without IV contrast History: Trauma Comparison: None Technique: Using multidetector thin collimation helical acquisition technique, axial, coronal and sagittal CT images through the cervical spine were obtained without intravenous contrast. Dose reduction techniques were achieved by using automatic exposure control and/or adjustment of mA and/or kV according to patient size and/or use of iterative reconstruction technique. Findings: The cervical vertebrae are normally aligned. Straightened cervical lordosis. No acute fracture or subluxation. No prevertebral edema. Severe discogenic degenerative changes at C5-6 and C6-7 where there are prominent anterior bridging osteophytes. No abnormality of the paraspinous soft tissues. Impression: No acute fracture or traumatic subluxation. Electronically signed by Adam Ricardo 01-11-2025 4:[address] 01/11/25 15:27 EXAMINATION: CT of the chest, abdomen and pelvis performed without the administration of IV contrast TECHNIQUE: Helical CT images from the lung apices through the symphysis pubis were obtained without contrast. Coronal and sagittal reformatted images were generated at a workstation for further assessment. Dose reduction techniques were achieved by using automatic exposure control and/or adjustment of mA and/or kV according to patient size and/or use of iterative reconstruction technique. COMPARISON: None HISTORY: Fall FINDINGS: Lines and tubes: None Mediastinum/Neck Base: No thyroid nodules. Central tracheobronchial tree is patent. Heart size is enlarged. There is a left chest wall dual-lead AICD. Coronary stents appear to be present.. No pericardial effusion. Normal thoracic vasculature. No thoracic lymphadenopathy. Lungs: Moderate, irregular interstitial opacities, extending throughout the peribronchovascular regions of the lower lobes and lingula, with mild involvement of the posterior right upper lobe. No honeycombing. No significant bronchiectasis. No consolidation. No pleural effusion or pneumothorax. Liver: No suspicious liver lesions. Portal veins appear patent. Gallbladder: Cholecystectomy changes. Spleen: Normal size. Pancreas: No suspicious pancreatic lesions. The pancreatic duct is not dilated. Adrenal glands: No adrenal nodules. Kidneys: No hydronephrosis or obstructing renal stones. Bladder / Pelvic organs: Unremarkable. Bowel: No bowel obstruction. No abnormal bowel wall thickening. The appendix is unremarkable. Sigmoid diverticulosis without diverticulitis. Lymph nodes: No retroperitoneal, mesenteric, or pelvic lymphadenopathy. Peritoneum / Retroperitoneum: No free fluid or air within the abdomen. Vessels: No infrarenal aortic aneurysm. Bones and soft tissues: Degenerative changes of the spine. No acute osseous normality. IMPRESSION: No acute finding in the chest, abdomen or pelvis. Findings of interstitial lung disease, has a basilar predominance, with significant involvement of the peribronchovascular regions. Consider NSIP, cryptogenic organizing pneumonia, or chronic hypersensitivity pneumonitis. Electronically signed by Adam Ricardo 01-11-2025 4:39 PM Foot X-Ray 01/11/25 15:27 INDICATION: Pain and injury. TECHNIQUE: 3 views of the right foot. 3 views of the right ankle. COMPARISON: No relevant priors. FINDINGS: Nondisplaced fracture of the distal aspect of the proximal phalanx, fifth digit. Remaining osseous structures intact. No dislocation. No lytic or blastic bony lesions seen. Os trigonum noted. Mild diffuse joint space loss. Soft tissue swelling. IMPRESSION: Nondisplaced fracture of the distal aspect of the proximal phalanx, fifth digit. Electronically signed by Frank Jacob 01-11-2025 4:[address] 01/11/25 15:28 CT head without contrast History: Trauma Comparison: 03/20/2017 Technique: Using multidetector thin collimation helical acquisition technique, axial, coronal and sagittal CT images from the skull base to the vertex were obtained without intravenous contrast. Dose reduction techniques were achieved by using automatic exposure control and/or adjustment of mA and/or kV according to patient size and/or use of iterative reconstruction technique. Findings: No intracranial hemorrhage, mass-effect, or midline shift. The ventricles are proportionate to the cerebral sulci. The swartz to white matter differentiation of the cerebral hemispheres is preserved. The basal cisterns are patent. Chronic left basal ganglia infarct. There is moderate cerebral atrophy. Moderate, patchy low-attenuation changes in the white matter, most suggestive of sequelae of chronic small vessel ischemic disease. The visualized paranasal sinuses are clear. Mastoid air cells are clear. Impression: No acute intracranial pathology. Electronically signed by Adam Ricardo 01-11-2025 4:33 PM Medications Administered Discontinued Medications Diphtheria/Pertussis/Tetanus Vacc (Diphther/Tetan/Pertus Vaccine (Tdap, Adol/Adult) 0.5ml) 0.5 ml IM .ONCE ONE Stop: 01/11/25 17:53 Last Admin: 01/11/25 18:05 Dose: 0.5 ml Documented By: BERNADETTE Cefazolin Sodium (Ancef 2000mg) 2,000 mg in 15 mls @ 3.75 mls/min IV NOW STA Stop: 01/11/25 17:26 Last Admin: 01/11/25 17:30 Dose: 3.75 mls/min Documented By: MNE Code Status & VTE Plan Code Status FULL CODE Supervising Physician Co-Signing Physician Notes Patient seen and examined independently. Discussed with above provider Patient presents to the hospital with mechanical fall; workup was positive for nondisplaced fracture of distal aspect of proximal phalanx, fifth digit; discussed with on-call orthopedic surgeon who recommended conservative management and postop shoe application. Obtain PT OT evaluation; fall precautions. I have reviewed the advanced practitioner's documentation, and I agree with, and take responsibility for the plan of care I spent a total of 25 minutes coordinating, documenting, and providing care for this patient excluding time spent in the performance of separately billed services. All of the aforementioned completed while collaborating with the assigned advanced practitioner for a full treatment plan (1) Fall Encounter type: initial encounter Qualified Code(s): W19.XXXA - Unspecified fall, initial encounter (3) UTI (urinary tract infection) Hematuria presence: without hematuria Urinary tract infection type: site unspecified Qualified Code(s): N39.0 - Urinary tract infection, site not specif ied (4) Altered mental state Altered mental status type: unspecified Qualified Code(s): R41.82 - Altered mental status, unspecified (7) HTN (hypertension) Hypertension type: unspecified Qualified Code(s): I10 - Essential (primary) hypertension
[2025-01-11 18:04] LABS: Appearance Urine Clear (Clear); Bilirubin Urine Negative (Negative); Blood Urine 2+ (Negative); Color Urine Yellow; Glucose Urine UA Negative (Negative); Ketones Urine Trace (Negative); Leukocyte Esterase Urine Negative (Negative); Nitrite Urine Negative (Negative); Protein Urine 2+ (Negative); Specific Gravity Urine >= 1.030 (1.000-1.030); Urobilinogen Urine Negative (Negative); pH Urine 5.5 (4.5-7.5)
[2025-01-11] MEDS: DIPHTHER/TETAN/PERTUS Vaccine (Tdap, Adol/Adult) 0.5mL IM ONE (18:05)
[2025-01-11 18:17] LABS: Adenovirus PCR Not Detected (NotDetected); Bordetella parapertussis PCR Not Detected (NotDetected); Bordetella pertussis PCR Not Detected (NotDetected); Chlamydia pneumoniae PCR Not Detected (NotDetected); Coronavirus 229E PCR Not Detected (NotDetected); Coronavirus CoV-2 (COVID19)PCR Not Detected (NotDetected); Coronavirus HKU1 PCR Not Detected (NotDetected); Coronavirus NL63 PCR Not Detected (NotDetected); Coronavirus OC43PCR Not Detected (NotDetected); Human Metapneumovirus PCR Not Detected (NotDetected); Influenza A PCR Not Detected (NotDetected); Influenza B PCR Not Detected (NotDetected); Mycoplasma pneumoniae PCR Not Detected (NotDetected); Parainfluenza Virus 1 PCR Not Detected (NotDetected); Parainfluenza Virus 2 PCR Not Detected (NotDetected); Parainfluenza Virus 3 PCR Not Detected (NotDetected); Parainfluenza Virus 4 PCR Not Detected (NotDetected); Respiratory Syncytial VirusPCR Not Detected (NotDetected); Rhinovirus/Enterovirus PCR Not Detected (NotDetected)
[2025-01-11 18:21] LABS: Bacteria Urine 2+ (None Seen); Epithelial Cell Urine 0-2 /hpf (0-2); Mucus Urine Present (None Prsent)
[2025-01-11 18:22] LABS: WBC Urine 0-5 /hpf (0-5)
[2025-01-11] MEDS ORDERED: MAGNESIUM HYDROXIDE SUSP 30 ML UDC PO PRN (21:45)
[2025-01-11] MEDS ORDERED: POLYETHYLENE (MIRALAX) 17 GM PACK PO PRN (21:45)
[2025-01-11] MEDS: cefTRIAXone SODIUM 2,000 MG/50 ML BAG IV SCH (21:48)
[2025-01-11] MEDS: HEPARIN SOD 5,000 UNIT/0.5 ML VIAL SQ SCH (22:22)
[2025-01-11] MEDS: SODIUM CHLORIDE 0.9% 1,000 ML IV SCH (22:22)
[2025-01-12] MEDS: Patient's HEIGHT &/or WEIGHT Needed STA (00:18)
[2025-01-12] MEDS: CLOPIDOGREL BISULFATE 75 MG TAB PO SCH (07:43)
[2025-01-12] MEDS: ATORVASTATIN 40 MG TAB PO SCH (07:43)
[2025-01-12] MEDS: ASPIRIN 81 MG ECTAB PO SCH (07:43)
[2025-01-12] MEDS: MAGNESIUM OXIDE 400 MG TAB PO SCH (07:43)
[2025-01-12] MEDS: MULTIVITAMIN TAB PO SCH (07:44)
[2025-01-12] MEDS: PANTOprazole 40 MG TAB PO SCH (07:44)
[2025-01-12] MEDS: SERTRALINE HCL 50 MG TABLET PO SCH (07:44)
[2025-01-12] MEDS: ISOSORBIDE MONO EXTENDED REL 30 MG TABCR PO SCH (07:44)
--- NOTE | 2025-01-12 10:05 | Hospitalist Progress Note ---
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 Head CT with no acute intracranial pathology. Cervical spine CT without evidence of fracture or traumatic subluxation. Right foot and ankle XR imaging notable for a nondisplaced fracture of the distal aspect of the proximal phalanx, fifth digit Per Admitting Provider, ED provider discussed finding with on-call ortho surgeon, Dr. Reza and recommended to continue conservative management with WBAT, postop shoe application and no need for surgical intervention. Will follow up Ortho eval PT/OT Fall precautions. (3) Altered mental state: (4) UTI (urinary tract infection): Plan: Head CT reviewed and w/o any acute intracranial findings. Encephalopathy, likely metabolic UA noted 2+ bacteria but negative nitrite, esterase and 0-5 which makes me doubt UTI Blood cultures in lab However, considering patient is a poor historian and had fever of 38.1/WBC of 12K yesterday; cannot rule out Sepsis. Unclear cause at this time Chest CT did not show acute findings but noted findings of interstitial lung disease Follow up infectious workup Continue IV ceftriaxone for now and deescalate antibiotics as appropriate (5) History of CVA (cerebrovascular accident): Plan: Baseline residual expressive aphasia s/p prior left basal ganglia stroke in February 2017 which was treated with thrombolytic therapy. No issues with swallowing at baseline; tolerates a soft diet at home without any complications. Continue minced/moist diet, Aspiration precautions. Continue ASA and statin. (6) Interstitial lung abnormality present on imaging study: Plan: Chest CT and CTAP noting findings of interstitial lung disease with a basilar predominance and significant involvement of the peribronchovascular regions. No prior diagnosis of such per Admitting Provider; Currently on room air Need Pulm follow up on discharge (7) HTN (hypertension): Plan: Stable Hold home losartan and HCTZ for now. Monitor Other Chronic Medical Conditions: Depression - Continue Zoloft. Recurrent Angina - Continue Imdur. GERD - Continue PPI. DVT Prophylaxis: SQ Heparin Code Status: FULL CODE - Per discussion with the patient's son, Elver, over the phone. I spent a total of 55 minutes coordinating, documenting and providing care for this patient excluding time spent in performance of separately billed services Admission and Anticipated Discharge Date Admission Date: January 11, 2025 Subjective Patient seen and examined Poor historian. Alert and oriented to person and place at this time Reports falling out of bed and pain in right foot Denied any other complaints Physical Exam Constitutional: + well hydrated; no acute distress Eyes: PERRL, conjunctivae normal, anicteric sclerae ENMT: external ear and nose normal, oropharynx normal Respiratory: normal respiratory effort, lungs clear to auscultation Cardiovascular: Rate/Rhythm: regular rate and regular rhythm Gastrointestinal (Abdomen): normal bowel sounds, soft, nontender, no hepatosplenomegaly Musculoskeletal: Tenderness over lateral right foot Neurologic: PERRL, EOMI, accommodation nl, no face palsy, no dysarthria Results & Data Results & Data Vital Signs (Past 12 Hours) Vital Signs Temp Pulse Pulse Resp BP BP Pulse Ox 01/12/25 08:07 37.9 C H 71 18 111/62 92 01/12/25 08:05 01/12/25 07:00 66 01/12/25 02:30 91 H 18 133/70 90 01/12/25 02:15 37.7 C H 01/11/25 23:48 38.1 C H 67 18 111/60 93 01/11/25 22:00 O2 Del Method 01/12/25 08:07 Room Air 01/12/25 08:05 Room Air 01/12/25 07:00 01/12/25 02:30 Room Air 01/12/25 02:15 01/11/25 23:48 Room Air 01/11/25 22:00 Room Air Laboratory Results Abnormal lab results 01/11/25 01/11/25 Range/Units 16:24 17:51 WBC 4.74 L (4.8-10.8) K/ul RBC 4.63 L (4.70-6.10) M/uL RDW Std Deviation 51.0 H (36.4-46.3) fL RDW Coeff of Phi 14.8 H (11.5-14.5) % Plt Count 117 L (130-400) K/uL Lymph # (Auto) 0.22 L (1.20-3.40) K/uL Sodium 135 L (136-145) mmol/L Glucose 128 H (70-99(Fasting)) mg/dl Total Bilirubin 1.5 H (0.2-1.0) mg/dl AST 41 H (13-39) U/L Urine Protein 2+ H (Negative) Urine Ketones Trace H (Negative) Urine Blood 2+ H (Negative) Urine RBC 6-10 H (0-2) /hpf Urine Bacteria 2+ H (None Seen) Urine Mucus Present A (None Prsent) (3) Altered mental state Altered mental status type: unspecified Qualified Code(s): R41.82 - Altered mental status, unspecified (7) HTN (hypertension) Hypertension type: unspecified Qualified Code(s): I10 - Essential (primary) hypertension
[2025-01-12 10:40] LABS: Hemoglobin 13.8 g/dl (14.0-18.0); Mean Corpuscular Hemoglobin 31.9 pg (25.0-34.0); Mean Corpuscular Hgb Conc 34.5 g/dL (32.0-36.0); Mean Corpuscular Volume 92.4 fL (80.0-100.0); Mean Platelet Volume 9.9 fL (9.4-12.4); Platelet Count 85 K/uL (130-400); RDW Coefficient of Variation 14.3 % (11.5-14.5); RDW Standard Deviation 48.8 fL (36.4-46.3); Red Blood Count 4.33 M/uL (4.70-6.10); White Blood Count 3.65 K/ul (4.8-10.8)
[2025-01-12 10:52] LABS: Calcium 7.9 mg/dl (8.6-10.3); Magnesium 1.7 mg/dl (1.7-2.4); Potassium 3.6 mmol/L (3.5-5.1)
[2025-01-12 10:58] LABS: BUN Creatinine Ratio 22.2 (10-20); Creatinine Clr Calc Pharmacy 58.9 ml/min
--- NOTE | 2025-01-12 11:38 | Electrocardiogram Report ---
Test Reason : Blood Pressure : */* mmHG Vent. Rate : 71 BPM Atrial Rate : 71 BPM P-R Int : 236 ms QRS Dur : 86 ms QT Int : 362 ms P-R-T Axes : 66 -45 55 degrees QTcB Int : 393 ms Sinus rhythm with 1st degree A-V block Left anterior fascicular block Abnormal ECG When compared with ECG of 26-Aug-2018 10:47, Sinus rhythm has replaced Electronic atrial pacemaker QRS axis Shifted left Confirmed by Adam Oliva ([id number]) on 01/12/2025 11:38:17 AM Referred By: Confirmed By: Adam Oliva
--- NOTE | 2025-01-12 12:21 | Orthopedic Consultation ---
Date of Consultation January 12, 2025 Assessment & Plan (1) Fracture of proximal phalanx of toe of right foot: Minimal displacement. This will be managed nonoperatively. Toe was arley taped to the fourth toe for support. He has swelling in the toe, foot, and ankle likely dependent related coupled with suspected ankle sprain. Ordered elevation and ice. Notified nursing. Weightbearing as tolerated with postop shoe. Walker for stability. PT/OT Applied an Joe wrap from the foot into the ankle for edema and support. Will switch this to Tubigrip sleeve tomorrow. Pain management per primary service. Continue aspirin and clopidogrel for DVT prophylaxis Will follow this in our office. Follow-up appointment scheduled and listed in discharge tab. (2) Right ankle sprain: No acute fractures identified on x-ray. Likely a lateral sprain. He currently is in a postop shoe. JOE wrap as above for edema and support. Consider switching to a cam boot if ankle continues to be symptomatic. Switch to tubigrip tomorrow for edema Elevate and ice as above. PT/OT Follow up as above (3) Laceration of right foot: Dressing changed today. Wound was cleansed with sterile saline. New dressing including Xeroform, gauze between the toes, and wrapped with rolled gauze. Low suspicion for an open fracture given superficial nature however he is receiving antibiotics currently for possible UTI. Antibiotics should be continued with at least ancef or keflex for 1 week for prophylaxis. He has been febrile with an elevated WBC, but I think this is unlikely the source especially given this occurred yesterday. No surrounding erythema to suggest this being the source for infection. Keep foot/wound clean and dry. Follow up as above Supervising Physician Co-Signing Physician Notes I, Dr. Reza, saw and examined the patient and agree with the above findings and plan o f care, I developed. 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 Patient was worked up in the emergency department with x- rays of the ankle and foot as well as CT imaging of the head through the abdomen and pelvis. The only notified injury on imaging was a right fifth toe proximal phalanx fracture. He also was found to have a superficial laceration between the 5th and 4th webspace of the toes which was treated conservatively. Was placed in a postop shoe. Tetanus updated. He was started on antibiotics for infection prophylaxis, and also abnormal findings on his urinalysis. Admitted for weakness. Found to be febrile yesterday and today, being managed by hospitalist service. Patient seen the following day after admission. He states that his foot and ankle are sore. He denies any numbness or tingling in his toes. No other pain anywhere else. Denies any prior injury or surgery to this foot or ankle. Allergies Allergy/AdvReac Type Severity Reaction Status Date / Time crab Allergy Unknown Unknown Verified 01/11/25 17:42 Iodinated Contrast Media AdvReac Unknown HEART Verified 01/11/25 17:42 PALPITATIONS piroxicam AdvReac Unknown STOMACH Verified 01/11/25 17:42 UPSET, ITCHING simvastatin AdvReac Unknown ITCHING Verified 01/11/25 17:42 Home Medications Medication Instructions Recorded Confirmed Type aspirin 81 mg tablet,delayed 162 mg PO QAM 01/11/25 01/11/25 History release atorvastatin 80 mg tablet 80 mg PO DAILY 01/11/25 01/11/25 History clopidogrel 75 mg tablet 75 mg PO DAILY 01/11/25 01/11/25 History hydrochlorothiazide 12.5 mg capsule 12.5 mg PO UD 01/11/25 01/11/25 History isosorbide mononitrate 30 mg 30 mg PO QAM 01/11/25 01/11/25 History tablet,extended release 24 hr losartan 25 mg tablet 20 mg PO DAILY 01/11/25 01/11/25 History magnesium oxide 400 mg PO QAM 01/11/25 01/11/25 History multivitamin 1 tab PO DAILY 01/11/25 01/11/25 History nitroglycerin 0.4 mg sublingual 0.4 mg sublingual .EVERY 5 MINUTES 01/11/25 01/11/25 History tablet (Nitrostat) PRN Chest Pain omega-3s 300 [id number]-[id number]-other 1 cap PO DAILY 01/11/25 01/11/25 History [id number] oil 1,000 mg capsule ([place]-3 Fish Oil) pantoprazole 20 mg tablet,delayed 20 mg PO QAM 01/11/25 01/11/25 History release sertraline 25 mg tablet 25 mg PO DAILY 01/11/25 01/11/25 History Patient History Medical History BPH (benign prostatic hyperplasia) Family history of diabetes mellitus Hearing deficit Migraine Pacemaker Surgical History History of heart artery stent History of cardiac cath Social History Smoking Status: Never smoker Second Hand Exposure: No; Do You Dip or Chew Tobacco: No; Hx Alcohol Use: No Hx Substance Use: No Preferred Language: Setswana Communication Ability: Impaired Communication Ability Comment: Expressive aphasia Slip Filler Required: No Beliefs That Will Affect Care: None Current Living Situation: Spouse Other Information That Helps Us Care for You: No Feels Safe at Home: Yes Safety Concerns: Feels Safe At This Time Assistive Devices: Stair Lift and Walker Physical Exam Constitutional: Sitting upright in chair. In no distress. Conversational. Cardiovascular: Right DP pulse 2+ Musculoskeletal: Right lower extremity: Little toe with some soft tissue swelling and tenderness to palpation. No redness or warmth about the toe, foot, or ankle. No deformity in the toes. 1+ edema in the foot extending up the lateral ankle. There is reproducible tenderness in the lateral ankle ligamentous structures and lateral foot. Able to actively plantarflex, dorsiflex, and vickie the ankle. There is no proximal fibular tenderness. No tenderness in the lower leg. Negative squeeze test. Negative anterior drawer test. Skin: Superficial laceration about 1 cm in length between the 4th and 5th toe webspace. No active bleeding. Neurologic: No sensory deficits in bilateral toes to light touch Results & Data Vital Signs (Past 12 Hours) Vital Signs Temp Pulse Pulse Resp BP BP Pulse Ox 01/12/25 11:26 98.1 F 87 18 107/55 L 91 01/12/25 08:07 100.2 F H 71 18 111/62 92 01/12/25 08:05 01/12/25 07:00 66 01/12/25 02:30 91 H 18 133/70 90 01/12/25 02:15 99.9 F H O2 Del Method 01/12/25 11:26 Room Air 01/12/25 08:07 Room Air 01/12/25 08:05 Room Air 01/12/25 07:00 01/12/25 02:30 Room Air 01/12/25 02:15 Laboratory Results 01/11/25 17:51 Urine Culture - Preliminary Urine,Clean Catch No growth - Less than 1,000 colonies/mL, Final report to follow. 01/11/25 16:24 Aerobic Blood Culture - Pending Blood Anaerobic Blood Culture - Pending 01/12/25 01/11/25 01/11/25 09:34 17:51 16:45 WBC 3.65 L RBC 4.33 L Hgb 13.8 L Hct 40.0 L MCV 92.4 MCH 31.9 MCHC 34.5 RDW Std Deviation 48.8 H RDW Coeff of Phi 14.3 Plt Count 85 L MPV 9.9 Immature Gran % (Auto) Neut % (Auto) Lymph % (Auto) [place] % (Auto) Eos % (Auto) Baso % (Auto) Neut # (Auto) Lymph # (Auto) [place] # (Auto) Eos # (Auto) Baso # (Auto) Immature Gran # (Auto) PT INR APTT PTT Ratio Sodium 134 L Potassium 3.6 Chloride 105 Carbon Dioxide 24 Anion Gap 5 BUN 20 Creatinine 0.90 Est Cr Clr Drug Dosing 58.9 eGFR 82.66 BUN/Creatinine Ratio 22.2 H Glucose 109 H Calcium 7.9 L Magnesium 1.7 Total Bilirubin AST ALT Alkaline Phosphatase Troponin I High Sens Total Protein Albumin Globulin Albumin/Globulin Ratio Procalcitonin TSH Urine Color Yellow Urine Appearance Clear Urine pH 5.5 Ur Specific [place] >= 1.030 Urine Protein 2+ H Urine Glucose (UA) Negative Urine Ketones Trace H Urine Blood 2+ H Urine Nitrite Negative Urine Bilirubin Negative Urine Urobilinogen Negative Ur Leukocyte Esterase Negative Urine RBC 6-10 H Urine WBC 0-5 Ur Epithelial Cells 0-2 Urine Bacteria 2+ H Urine Mucus Present A Adenovirus (PCR) Not Detected B. pertussis DNA (PCR) Not Detected B.parapertussis DNA PCR Not Detected C. pneumoniae DNA (PCR) Not Detected Coronavirus OC43 (PCR) Not Detected Coronavirus HKU1 (PCR) Not Detected Coronavirus 229E (PCR) Not Detected SARS-CoV-2 (PCR) Not Detected Coronavirus NL63 (PCR) Not Detected Human Metapneumovir PCR Not Detected Influenza Type A (PCR) Not Detected Influenza Type B (PCR) Not Detected M. pneumoniae (PCR) Not Detected Parainfluenza 1 (PCR) Not Detected Parainfluenza 2 (PCR) Not Detected Parainfluenza 3 (PCR) Not Detected Parainfluenza 4 (PCR) Not Detected RSV (PCR) Not Detected Entero/Rhino (PCR) Not Detected 01/11/25 16:24 WBC 4.74 L RBC 4.63 L Hgb 14.9 Hct 43.0 MCV 92.9 MCH 32.2 MCHC 34.7 RDW Std Deviation 51.0 H RDW Coeff of Phi 14.8 H Plt Count 117 L MPV 9.9 Immature Gran % (Auto) 0.6 Neut % (Auto) 88.9 Lymph % (Auto) 4.6 [place] % (Auto) 5.5 Eos % (Auto) 0.0 Baso % (Auto) 0.4 Neut # (Auto) 4.21 Lymph # (Auto) 0.22 L [place] # (Auto) 0.26 Eos # (Auto) 0.00 Baso # (Auto) 0.02 Immature Gran # (Auto) 0.03 PT 11.5 INR 1.1 APTT 28 PTT Ratio 1.0 Sodium 135 L Potassium 4.1 Chloride 104 Carbon Dioxide 27 Anion Gap 4 BUN 18 Creatinine 0.96 Est Cr Clr Drug Dosing Not Reportable eGFR 76.50 BUN/Creatinine Ratio 18.8 Glucose 128 H Calcium 8.7 Magnesium Total Bilirubin 1.5 H AST 41 H ALT 28 Alkaline Phosphatase 56 Troponin I High Sens 18.5 Total Protein 6.8 Albumin 3.8 Globulin 3.0 Albumin/Globulin Ratio 1.3 Procalcitonin 0.28 TSH 0.773 Urine Color Urine Appearance Urine pH Ur Specific [place] Urine Protein Urine Glucose (UA) Urine Ketones Urine Blood Urine Nitrite Urine Bilirubin Urine Urobilinogen Ur Leukocyte Esterase Urine RBC Urine WBC Ur Epithelial Cells Urine Bacteria Urine Mucus Adenovirus (PCR) B. pertussis DNA (PCR) B.parapertussis DNA PCR C. pneumoniae DNA (PCR) Coronavirus OC43 (PCR) Coronavirus HKU1 (PCR) Coronavirus 229E (PCR) SARS-CoV-2 (PCR) Coronavirus NL63 (PCR) Human Metapneumovir PCR Influenza Type A (PCR) Influenza Type B (PCR) M. pneumoniae (PCR) Parainfluenza 1 (PCR) Parainfluenza 2 (PCR) Parainfluenza 3 (PCR) Parainfluenza 4 (PCR) RSV (PCR) Entero/Rhino (PCR) Diagnostic Findings Abdomen/Pelvis CT 01/11/25 15:27 EXAMINATION: CT of the chest, abdomen and pelvis performed without the administration of IV contrast TECHNIQUE: Helical CT images from the lung apices through the symphysis pubis were obtained without contrast. Coronal and sagittal reformatted images were generated at a workstation for further assessment. Dose reduction techniques were achieved by using automatic exposure control and/or adjustment of mA and/or kV according to patient size and/or use of iterative reconstruction technique. COMPARISON: None HISTORY: Fall FINDINGS: Lines and tubes: None Mediastinum/Neck Base: No thyroid nodules. Central tracheobronchial tree is patent. Heart size is enlarged. There is a left chest wall dual-lead AICD. Coronary stents appear to be present.. No pericardial effusion. Normal thoracic vasculature. No thoracic lymphadenopathy. Lungs: Moderate, irregular interstitial opacities, extending throughout the peribronchovascular regions of the lower lobes and lingula, with mild involvement of the posterior right upper lobe. No honeycombing. No significant bronchiectasis. No consolidation. No pleural effusion or pneumothorax. Liver: No suspicious liver lesions. Portal veins appear patent. Gallbladder: Cholecystectomy changes. Spleen: Normal size. Pancreas: No suspicious pancreatic lesions. The pancreatic duct is not dilated. Adrenal glands: No adrenal nodules. Kidneys: No hydronephrosis or obstructing renal stones. Bladder / Pelvic organs: Unremarkable. Bowel: No bowel obstruction. No abnormal bowel wall thickening. The appendix is unremarkable. Sigmoid diverticulosis without diverticulitis. Lymph nodes: No retroperitoneal, mesenteric, or pelvic lymphadenopathy. Peritoneum / Retroperitoneum: No free fluid or air within the abdomen. Vessels: No infrarenal aortic aneurysm. Bones and soft tissues: Degenerative changes of the spine. No acute osseous normality. IMPRESSION: No acute finding in the chest, abdomen or pelvis. Findings of interstitial lung disease, has a basilar predominance, with significant involvement of the peribronchovascular regions. Consider NSIP, cryptogenic organizing pneumonia, or chronic hypersensitivity pneumonitis. Electronically signed by Adam Ricardo 01-11-2025 4:39 PM Ankle X-Ray 01/11/25 15:27 INDICATION: Pain and injury. TECHNIQUE: 3 views of the right foot. 3 views of the right ankle. COMPARISON: No relevant priors. FINDINGS: Nondisplaced fracture of the distal aspect of the proximal phalanx, fifth digit. Remaining osseous structures intact. No dislocation. No lytic or blastic bony lesions seen. Os trigonum noted. Mild diffuse joint space loss. Soft tissue swelling. IMPRESSION: Nondisplaced fracture of the distal aspect of the proximal phalanx, fifth digit. Electronically signed by Frank Jacob 01-11-2025 4:[address] 01/11/25 15:27 CT cervical spine without IV contrast History: Trauma Comparison: None Technique: Using multidetector thin collimation helical acquisition technique, axial, coronal and sagittal CT images through the cervical spine were obtained without intravenous contrast. Dose reduction techniques were achieved by using automatic exposure control and/or adjustment of mA and/or kV according to patient size and/or use of iterative reconstruction technique. Findings: The cervical vertebrae are normally aligned. Straightened cervical lordosis. No acute fracture or subluxation. No prevertebral edema. Severe discogenic degenerative changes at C5-6 and C6-7 where there are prominent anterior bridging osteophytes. No abnormality of the paraspinous soft tissues. Impression: No acute fracture or traumatic subluxation. Electronically signed by Adam Ricardo 01-11-2025 4:[address] 01/11/25 15:27 EXAMINATION: CT of the chest, abdomen and pelvis performed without the administration of IV contrast TECHNIQUE: Helical CT images from the lung apices through the symphysis pubis were obtained without contrast. Coronal and sagittal reformatted images were generated at a workstation for further assessment. Dose reduction techniques were achieved by using automatic exposure control and/or adjustment of mA and/or kV according to patient size and/or use of iterative reconstruction technique. COMPARISON: None HISTORY: Fall FINDINGS: Lines and tubes: None Mediastinum/Neck Base: No thyroid nodules. Central tracheobronchial tree is patent. Heart size is enlarged. There is a left chest wall dual-lead AICD. Coronary stents appear to be present.. No pericardial effusion. Normal thoracic vasculature. No thoracic lymphadenopathy. Lungs: Moderate, irregular interstitial opacities, extending throughout the peribronchovascular regions of the lower lobes and lingula, with mild involvement of the posterior right upper lobe. No honeycombing. No significant bronchiectasis. No consolidation. No pleural effusion or pneumothorax. Liver: No suspicious liver lesions. Portal veins appear patent. Gallbladder: Cholecystectomy changes. Spleen: Normal size. Pancreas: No suspicious pancreatic lesions. The pancreatic duct is not dilated. Adrenal glands: No adrenal nodules. Kidneys: No hydronephrosis or obstructing renal stones. Bladder / Pelvic organs: Unremarkable. Bowel: No bowel obstruction. No abnormal bowel wall thickening. The appendix is unremarkable. Sigmoid diverticulosis without diverticulitis. Lymph nodes: No retroperitoneal, mesenteric, or pelvic lymphadenopathy. Peritoneum / Retroperitoneum: No free fluid or air within the abdomen. Vessels: No infrarenal aortic aneurysm. Bones and soft tissues: Degenerative changes of the spine. No acute osseous normality. IMPRESSION: No acute finding in the chest, abdomen or pelvis. Findings of interstitial lung disease, has a basilar predominance, with significant involvement of the peribronchovascular regions. Consider NSIP, cryptogenic organizing pneumonia, or chronic hypersensitivity pneumonitis. Electronically signed by Adam Ricardo 01-11-2025 4:39 PM Foot X-Ray 01/11/25 15:27 INDICATION: Pain and injury. TECHNIQUE: 3 views of the right foot. 3 views of the right ankle. COMPARISON: No relevant priors. FINDINGS: Nondisplaced fracture of the distal aspect of the proximal phalanx, fifth digit. Remaining osseous structures intact. No dislocation. No lytic or blastic bony lesions seen. Os trigonum noted. Mild diffuse joint space loss. Soft tissue swelling. IMPRESSION: Nondisplaced fracture of the distal aspect of the proximal phalanx, fifth digit. Electronically signed by Frank Jacob 01-11-2025 4:[address] 01/11/25 15:28 CT head without contrast History: Trauma Comparison: 03/20/2017 Technique: Using multidetector thin collimation helical acquisition technique, axial, coronal and sagittal CT images from the skull base to the vertex were obtained without intravenous contrast. Dose reduction techniques were achieved by using automatic exposure control and/or adjustment of mA and/or kV according to patient size and/or use of iterative reconstruction technique. Findings: No intracranial hemorrhage, mass-effect, or midline shift. The ventricles are proportionate to the cerebral sulci. The swartz to white matter differentiation of the cerebral hemispheres is preserved. The basal cisterns are patent. Chronic left basal ganglia infarct. There is moderate cerebral atrophy. Moderate, patchy low-attenuation changes in the white matter, most suggestive of sequelae of chronic small vessel ischemic disease. The visualized paranasal sinuses are clear. Mastoid air cells are clear. Impression: No acute intracranial pathology. Electronically signed by Adam Ricardo 01-11-2025 4:33 PM (2) Right ankle sprain Encounter type: initial encounter Involved ligament of ankle: unspecified ligament Qualified Code(s): S93.401A - Sprain of unspecified ligament of right ankle, initial encounter (3) Laceration of right foot Encounter type: initial encounter Qualified Code(s): S91.311A - Laceration without foreign body, right foot, initial encounter
[2025-01-12] MEDS: ONDANSETRON INJ 2 MG/ML 2 ML VIAL IV PRN (16:14)
[2025-01-12] MEDS: ACETAMINOPHEN 325 MG TAB PO PRN (16:21)
[2025-01-12] MEDS: KETOROLAC TROMETHAMINE 15 MG/ML VIAL IV ONE (19:54)
[2025-01-12] MEDS: cefTRIAXone SODIUM 1,000 MG/50 ML BAG IV SCH (21:00)
[2025-01-12] MEDS ORDERED: LEVALBUTEROL HCL 0.63 MG/3 ML NEB NEB PRN (23:05)
[2025-01-13] MEDS: KETOROLAC TROMETHAMINE 15 MG/ML VIAL IV PRN (01:16)
[2025-01-13] MEDS: SODIUM CHLORIDE 0.9% 250 ML IV ONE (03:47)
[2025-01-13 09:20] LABS: Eosinophils # (auto) 0.01 K/uL (0.00-0.50); Eosinophils % (auto) 0.3 %; Hematocrit (blood only) 40.8 % (42.0-52.0); Immature Granulocytes # (auto) 0.02 K/uL (0.01-0.20); Immature Granulocytes % (auto) 0.6 %; Lymphocytes # (auto) 0.24 K/uL (1.20-3.40); Lymphocytes % (auto) 7.1 %; Mean Corpuscular Hgb Conc 34.3 g/dL (32.0-36.0); Mean Corpuscular Volume 93.2 fL (80.0-100.0); Mean Platelet Volume 10.5 fL (9.4-12.4); Monocytes # (auto) 0.12 K/uL (0.11-0.59); Monocytes % (auto) 3.6 %; Neutrophils # (auto) 2.98 K/uL (1.40-6.50); Neutrophils % (auto) 88.4 %; Platelet Count 48 K/uL (130-400); RDW Coefficient of Variation 14.8 % (11.5-14.5); RDW Standard Deviation 50.8 fL (36.4-46.3); Red Blood Count 4.38 M/uL (4.70-6.10); White Blood Count 3.37 K/ul (4.8-10.8)
[2025-01-13 09:44] LABS: Calcium 7.8 mg/dl (8.6-10.3); Potassium 3.6 mmol/L (3.5-5.1)
[2025-01-13 09:50] LABS: BUN Creatinine Ratio 24.8 (10-20); Creatinine Clr Calc Pharmacy 53.2 ml/min
[2025-01-13 10:46] LABS: Echinocytes 1+; Parasites Present
--- NOTE | 2025-01-13 11:07 | Orthopedic Progress Note ---
Date of Service January 13, 2025 Assessment & Plan (1) Fracture of proximal phalanx of toe of right foot: Plan: Minimal displacement. This will be managed nonoperatively. Toe was arley taped to the fourth toe for support. He has swelling in the toe, foot, and ankle likely dependent related coupled with suspected ankle sprain. Ordered elevation and ice. Notified nursing. Weightbearing as tolerated with postop shoe, starting with heel and may advance as tolerated. Walker for stability. PT/OT Applied an Joe wrap from the foot into the ankle for edema and support. Pain management per primary service. Continue aspirin and clopidogrel for DVT prophylaxis Will follow this in our office in 1week. Follow-up appointment scheduled and listed in discharge tab. (2) Right ankle sprain: Plan: No acute fractures identified on x-ray. Likely a lateral sprain. Much improved today, ankle nontender. Continue post op shoe May do ROM to right ankle as tolerated. May WBAT with walker assistance. Continue elevation and ice as above. PT/OT Follow up as above (3) Laceration of right foot: Plan: Dressing changed today. Wound was cleansed with sterile saline. New dressing including Xeroform, gauze between the toes, and wrapped with rolled gauze. Low suspicion for an open fracture given superficial nature however he is re ceiving antibiotics currently for possible UTI. Antibiotics should be continued with at least ancef while inpatient and then po keflex for 1 week for prophylaxis upon discharge. No surrounding erythema to suggest this being the source for infection. Keep foot/wound clean and dry. Change dressing as needed. Follow up as above Admission and Anticipated Discharge Date Admission Date: January 11, 2025 Supervising Physician Co-Signing Physician Notes IDr. Reza, saw and examined the patient with my PA and agree with the above findings and plan o f care, I developed. Subjective Patient is resting in bed. States that his foot feels fine at rest. Has been wearing the postop shoe when out of bed. He has applied ice occasionally. Complains of pain just in the toe and some that radiates down into the foot. Denies any numbness or tingling. Physical Exam Musculoskeletal: Exam focused on his right foot: Mild edema throughout the ankle. The ankle is nontender today. Tolerates active range of motion with dorsiflexion and plantarflexion without discomfort. Mild discomfort when squeezing of the midfoot mainly on the lateral aspect of the foot at the base of the fifth toe. Dressing was removed. The laceration in the webspace between the 4th and 5th toes is clean, dry with no active bleeding or drainage. Mildly tender with palpation. The fifth toe is mildly edematous and ecchymotic. Tender to palpation. Capillary refill is brisk. All 4 other toes are nontender with palpation. Distal pulses are 1+. Sensation is normal. The toe wound was redressed with Xeroform, 2 x2's, Harika and an Joe bandage. Results & Data Vital Signs (Past 12 Hours) Vital Signs Temp Pulse Pulse Resp BP BP Pulse Ox 01/13/25 08:19 36.3 C L 61 20 120/72 95 01/13/25 07:25 01/13/25 07:00 55 L 01/13/25 04:56 91/45 L 01/13/25 03:16 55 L 92/48 L 01/13/25 03:04 36.7 C 60 16 93/46 L 91/50 L 95 O2 Del Method 01/13/25 08:19 Room Air 01/13/25 07:25 Room Air 01/13/25 07:00 01/13/25 04:56 01/13/25 03:16 01/13/25 03:04 Room Air (2) Right ankle sprain Encounter type: initial encounter Involved ligament of ankle: unspecified ligament Qualified Code(s): S93.401A - Sprain of unspecified ligament of right ankle, initial encounter (3) Laceration of right foot Encounter type: initial encounter Qualified Code(s): S91.311A - Laceration without foreign body, right foot, initial encounter
[2025-01-13 11:16] LABS: Bilirubin Direct 0.2 mg/dl (0-0.2); Bilirubin,Total 1.2 mg/dl (0.2-1.0)
[2025-01-13 11:22] LABS: Total Protein 5.6 gm/dl (6.0-8.3)
[2025-01-13 14:24] LABS: Anaplasmosis Smear(Rpt to DOH) Pos for Anaplasma
[2025-01-13] MEDS: DOXYCYCLINE HYCLATE 100 MG in D5W MINI-B 100 ML (Q12H) IV SCH (16:15)
--- NOTE | 2025-01-13 16:37 | Hospitalist Progress Note ---
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 Head CT with no acute intracranial pathology. Cervical spine CT without evidence of fracture or traumatic subluxation. Right foot and ankle XR imaging notable for a nondisplaced fracture of the distal aspect of the proximal phalanx, fifth digit Per Admitting Provider, ED provider discussed finding with on-call ortho surgeon, Dr. Reza and recommended to continue conservative management with WBAT, postop shoe application and no need for surgical intervention. Will follow up Ortho eval PT/OT Fall precautions. 01/13 Continue conservative management including orthopedic shoe Pain control, PT and OT evaluation (3) Altered mental state: (4) UTI (urinary tract infection): Plan: Anaplasmosis Head CT reviewed and w/o any acute intracranial findings. Encephalopathy, likely metabolic UA noted 2+ bacteria but negative nitrite, esterase and 0-5 which makes me doubt UTI Blood cultures in lab However, considering patient is a poor historian and had fever of 38.1/WBC of 12K yesterday; cannot rule out Sepsis. Unclear cause at this time Chest CT did not show acute findings but noted findings of interstitial lung disease Follow up infectious workup Continue IV ceftriaxone for now and deescalate antibiotics as appropriate 01/13 CBC showing leukopenia and thrombocytopenia Peripheral smear ordered, positive for intracytoplasmic inclusion bodies, consistent with anaplasmosis doxycycline twice daily ordered platelet level trending down: 117, 85, 48 No signs of active bleeding Will hold heparin subcutaneous, aspirin and Plavix for now Hopefully with initiation of doxycycline, will see improvement of leukopenia and thrombocytopenia soon follow-up urine and blood cultures (5) History of CVA (cerebrovascular accident): Plan: Baseline residual expressive aphasia s/p prior left basal ganglia stroke in February 2017 which was treated with thrombolytic therapy. No issues with swallowing at baseline; tolerates a soft diet at home without any complications. Continue minced/moist diet, Aspiration precautions. Continue ASA and statin. 01/13 Hold aspirin, Plavix in light of thrombocytopenia less than 50K (6) Interstitial lung abnormality present on imaging study: Plan: Chest CT and CTAP noting findings of interstitial lung disease with a basilar predominance and significant involvement of the peribronchovascular regions. No prior diagnosis of such per Admitting Provider; Currently on room air Need Pulm follow up on discharge (7) HTN (hypertension): Plan: BP on the lower side Hold home losartan and HCTZ for now. Monitor Other Chronic Medical Conditions: Depression - Continue Zoloft. Recurrent Angina - Continue Imdur. GERD - Continue PPI. DVT Prophylaxis: SQ Heparin--> hold for now in light of thrombocytopenia Code Status: FULL CODE - Per discussion with the patient's son, Elver, over the phone. Disposition Lives with at home PT OT evaluation in progress Admission and Anticipated Discharge Date Admission Date: January 11, 2025 Subjective follow-up for toe fracture, status post fall, encephalopathy, etc. Seen sitting up in bedside chair, comfortable, not in distress, in good spirits Answering most questions appropriately States he feels fine overall Has some mild discomfort over the Right toe Feels somewhat weak reports some right lower rib pain and tenderness Reports some right shoulder pain as well denies cough, shortness of breath, abdominal pain, nausea/vomiting No other new symptoms Review of Systems Review of Systems: all noted and negative except for above Physical Exam Physical Exam: General- oriented x 2, not in distress, speaks in sentences with no effort or accessory muscle use Eyes- anicteric Neck- no JVD Lungs- clear breath sounds bilaterally, no rales/wheezes Heart- normal rate, regular rhythm; no murmurs Abdomen- normal bowel sounds, nondistended, soft, nontender Extremities- Right foot: Dressing in place, orthopedic shoe also in place no pretibial edema, no calf tenderness Neuro- alert, oriented x 2; no gross focal neurologic deficits Skin- warm & dry Results & Data Results & Data Vital Signs (Past 12 Hours) Vital Signs Temp Pulse Pulse Resp BP Pulse Ox O2 Del Method 01/13/25 14:50 36.3 C L 70 20 99/49 L 92 Room Air 01/13/25 14:00 112 H 04/16/25 11:37 36.3 C L 63 18 97/57 L 93 Room Air 01/13/25 08:19 36.3 C L 61 20 120/72 95 Room Air 01/13/25 07:25 Room Air 01/13/25 07:00 55 L 01/13/25 04:56 91/45 L (3) Altered mental state Altered mental status type: unspecified Qualified Code(s): R41.82 - Altered mental status, unspecified (7) HTN (hypertension) Hypertension type: unspecified Qualified Code(s): I10 - Essential (primary) hypertension
--- NOTE | 2025-01-13 17:25 | XRay Report ---
Clinical History: Pain after fall 3 views of the right shoulder are submitted for review. Findings: No fracture or dislocation is seen. There is mild acromioclavicular osteoarthritis. No other osseous abnormality is identified. There are no radiopaque foreign bodies. Impression: 1. No definite fracture 2. Mild acromioclavicular osteoarthritis Electronically signed by Stan Muniz 01-13-2025 5:24 PM
--- NOTE | 2025-01-13 17:26 | XRay Report ---
Technique: 5 views of the chest and ribs were obtained Findings: There are multifocal interstitial and alveolar opacities bilaterally, most likely due to pneumonia. The heart size is within normal limits. No pleural effusion or pneumothorax is seen. No fracture is noted. There is a left chest wall pacemaker device Impression: 1. Bilateral pneumonia 2. No definite rib fracture ACT 112: Positive. There are findings on this exam that require communication between the performing entity and the patient following Patient Test Result Information Act ([place] ACT 112) guidelines. Electronically signed by Stan Muniz 01-13-2025 5:26 PM
[2025-01-14 08:44] LABS: Hematocrit (blood only) 38.8 % (42.0-52.0); Hemoglobin 13.2 g/dl (14.0-18.0); Mean Corpuscular Hemoglobin 31.2 pg (25.0-34.0); Mean Corpuscular Volume 91.7 fL (80.0-100.0); Mean Platelet Volume 11.7 fL (9.4-12.4); Platelet Count 40 K/uL (130-400); RDW Coefficient of Variation 14.9 % (11.5-14.5); RDW Standard Deviation 49.9 fL (36.4-46.3); Red Blood Count 4.23 M/uL (4.70-6.10); White Blood Count 2.29 K/ul (4.8-10.8)
[2025-01-14 09:12] LABS: Acanthocytes 1+; Albumin Level 2.7 gm/dl (3.4-5.0); Basophils # (auto) 0.01 K/uL (0.00-0.20); Basophils % (auto) 0.4 %; Bilirubin Direct 0.2 mg/dl (0-0.2); Bilirubin,Total 1.1 mg/dl (0.2-1.0); Calcium 7.4 mg/dl (8.6-10.3); Echinocytes 1+; Eosinophils # (auto) 0.01 K/uL (0.00-0.50); Eosinophils % (auto) 0.4 %; Immature Granulocytes # (auto) 0.01 K/uL (0.01-0.20); Immature Granulocytes % (auto) 0.4 %; Lymphocytes # (auto) 0.33 K/uL (1.20-3.40); Lymphocytes % (auto) 14.4 %; Monocytes # (auto) 0.25 K/uL (0.11-0.59); Monocytes % (auto) 10.9 %; Neutrophils # (auto) 1.68 K/uL (1.40-6.50); Neutrophils % (auto) 73.5 %; Polychromasia 1+; Potassium 3.3 mmol/L (3.5-5.1)
[2025-01-14 09:18] LABS: BUN Creatinine Ratio 23.3 (10-20); Creatinine Clr Calc Pharmacy 52.2 ml/min; Total Protein 5.3 gm/dl (6.0-8.3)
--- NOTE | 2025-01-14 10:57 | Orthopedic Progress Note ---
Date of Service January 14, 2025 Assessment & Plan (1) Laceration of right foot: Plan: The patient's foot was checked and rewrapped. Continue ambulation in the postop shoe. He was reassured that I find no evidence for infection in his foot. The area can be kept clean with soap and water and covered with either Xeroform or bacitracin. Keep it covered until healed. Follow-up in the office in a week for reassessment. He can be reevaluated in the hospital if he is still admitted at that point. Elevate the left foot as needed for edema control. Admission and Anticipated Discharge Date Admission Date: January 11, 2025 Subjective This 89-year-old male is seen today at bedside. He is sitting in his bedside chair. He is more confused today. He had difficulty following commands with physical therapy. He seems short of breath today. No distress. He states his legs feel weak. He denies any foot pain. No abdominal pain, nausea, or vomiting. No other complaints. Physical Exam Physical Exam: General: Frail, elderly white male, in no acute distress. Sitting in a bedside chair. Alert but somewhat confused. Answers some questions appropriately. Seems to have difficulty following directions. Skin: Warm and dry with good turgor. No rashes. No ecchymosis. His right foot is bandaged. Upon removal, there is no erythema. There is no drainage. His small skin tear present in the fourth webspace looks clean. No significant healing yet. Musculoskeletal: The patient has intact motor function of his right hip, knee, and ankle. He is able to move his toes. He was able to ambulate in the hallway with assistance. Neurologic: Gross sensation appears to be intact to the right foot by soft touch. Peripheral pulses are 2+. Results & Data Vital Signs (Past 12 Hours) Vital Signs Temp Pulse Pulse Resp BP BP Pulse Ox 01/14/25 08:00 01/14/25 07:44 36.7 C 55 L 17 101/58 L 93 01/14/25 07:00 55 L 01/14/25 03:25 37.4 C 64 16 95/60 L 89/53 L 93 01/13/25 23:50 63 O2 Del Method 01/14/25 08:00 Room Air 01/14/25 07:44 Room Air 01/14/25 07:00 01/14/25 03:25 Room Air 01/13/25 23:50 Laboratory Results CBC obtained this morning shows a white count of 2.29. H&H of 13.2 and 38.8. (1) Laceration of right foot Encounter type: initial encounter Qualified Code(s): S91.311A - Laceration without foreign body, right foot, initial encounter
[2025-01-14] MEDS: LIDOCAINE 5% 1 PATCH TD SCH (11:06)
--- NOTE | 2025-01-14 17:04 | Pulmonary Consultation ---
Date of Consultation January 14, 2025 Assessment & Plan (1) Interstitial lung abnormality present on imaging study: Incidental finding of interstitial abnormality on CT chest. ?Component of aspiration pneumonitis. Should patient spike a fever, would recommend broadening antibiotics out to gram-negative coverage with Zosyn. Will check Pro-Domo tomorrow. If Pro-Domo remains negative, would simply recommend completing his course of doxycycline for a of minimum 7 days. Respiratory viral panel negative on admission. Recommend outpatient follow-up high-resolution CT chest with prone and supine imaging in 6 to 8 weeks. Consider outpatient PFTs depending on clinical symptom burden as outpatient. Doubtful that the patient would be a good candidate for therapeutics such as chronic immunosuppressive therapy or antifibrotic therapy if he is found to have ILD given his underlying advanced age, coronary artery disease and history of stroke. Will also hold on further serologic ILD testing as it is unclear whether the patient truly has interstitial lung disease or whether this is an acute finding. Plan of care discussed with the patient and patient's son. Thank you. Please call with questions. Will follow-up tomorrow. (2) Lung crackles: History of Present Illness Reason for Consultation: "Interstitial lung disease" Attending Physician: Antoine Jhaveri MD History of Present Illness 89-year-old male with a history of hyperlipidemia, CVA, and coronary artery disease status post PCI with REYES in 2014 who presented to the hospital due to a fall that he sustained at home. Pulmonary was consulted due to incidental findings noted on his CT chest. Patient currently under care of orthopedic surgery and hospitalist service. He apparently had encephalopathy upon admission and is currently being treated with doxycycline for possible tickborne illness and UTI. He sustained a nondisplaced fracture of the distal aspect of the proximal phalanx. Today, patient denies any shortness of breath or cough. I was able to talk to the patient's son who indicated that the patient does have occasional fatigue and dyspnea on exertion. Patient has no history of lung disease that he is aware of. Patient used to work on [employer] and does not have any significant occupational health exposures. He was briefly a social smoker while in the for about a year. He was raised on a farm. He did no farming as an adult. His chest CT 01/11/25 revealed increased interstitial opacities and peribronchial follow-up chest x-ray on the revealed thickening. No honeycombing was seen. No traction bronchiectasis noted. Chest x-ray on the revealed bilateral alveolar interstitial opacities. Allergies Allergy/AdvReac Type Severity Reaction Status Date / Time crab Allergy Unknown Unknown Verified 01/11/25 17:42 Iodinated Contrast Media AdvReac Unknown HEART Verified 01/11/25 17:42 PALPITATIONS piroxicam AdvReac Unknown STOMACH Verified 01/11/25 17:42 UPSET, ITCHING simvastatin AdvReac Unknown ITCHING Verified 01/11/25 17:42 Home Medications Medication Instructions Recorded Confirmed Type aspirin 81 mg tablet,delayed 162 mg PO QAM 01/11/25 01/11/25 History release atorvastatin 80 mg tablet 80 mg PO DAILY 01/11/25 01/11/25 History clopidogrel 75 mg tablet 75 mg PO DAILY 01/11/25 01/11/25 History hydrochlorothiazide 12.5 mg capsule 12.5 mg PO UD 01/11/25 01/11/25 History isosorbide mononitrate 30 mg 30 mg PO QAM 01/11/25 01/11/25 History tablet,extended release 24 hr losartan 25 mg tablet 20 mg PO DAILY 01/11/25 01/11/25 History magnesium oxide 400 mg PO QAM 01/11/25 01/11/25 History multivitamin 1 tab PO DAILY 01/11/25 01/11/25 History nitroglycerin 0.4 mg sublingual 0.4 mg sublingual .EVERY 5 MINUTES 01/11/2512/29 History tablet (Nitrostat) PRN Chest Pain omega-3s 300 [id number] 1 cap PO DAILY 01/11/25 01/11/25 History [id number] oil 1,000 mg capsule ([place]-3 Fish Oil) pantoprazole 20 mg tablet,delayed 20 mg PO QAM 01/11/25 01/11/25 History release sertraline 25 mg tablet 25 mg PO DAILY 01/11/25 01/11/25 History Patient History Medical History BPH (benign prostatic hyperplasia) Family history of diabetes mellitus Hearing deficit Migraine Pacemaker Surgical History History of heart artery stent History of cardiac cath Social History Smoking Status: Never smoker Second Hand Exposure: No; Do You Dip or Chew Tobacco: No; Hx Alcohol Use: No Hx Substance Use: No Preferred Language: Italian Communication Ability: Impaired Communication Ability Comment: Expressive aphasia Psychologist Private Practice Required: No Beliefs That Will Affect Care: None Current Living Situation: Spouse Other Information That Helps Us Care for You: No Feels Safe at Home: Yes Safety Concerns: Feels Safe At This Time Assistive Devices: Stair Lift and Walker Review of Systems Review of Systems: All systems reviewed & are unremarkable except as noted in HPI & below Physical Exam Physical Exam: Constitutional: Patient appears to be of their stated age. Patient is in no apparent distress. Patient is well-developed. Eyes: Pupils are equal round and reactive to light. Conjunctivae are normal. Anicteric sclera. Ears nose, mouth and throat: Mallampati class 2. Normal posterior oropharynx. Uvula is midline. Neck: Trachea is midline. Visual inspection is normal. Respiratory: Mild focal crackles noted in the lower lobes bilaterally. Cardiovascular: Regular rate and rhythm. No murmurs. No edema. Gastrointestinal: Normal bowel sounds, soft, nontender and nondistended. No hepatosplenomegaly noted. Musculoskeletal: Right foot in an immobilizer. Skin: No rashes, warm dry and intact. Neurologic: Dysarthric at baseline. Diffusely weak. Psychiatric: Alert and oriented x3 with a euthymic affect. Results & Data Results & Data Vital Signs (Past 12 Hours) Vital Signs Temp Pulse Pulse Resp BP Pulse Ox O2 Del Method 01/14/25 15:45 Room Air 01/14/25 15:41 36.4 C L 62 20 108/64 95 Room Air 01/14/25 14:09 55 L 01/14/25 11:36 36.8 C 68 17 104/63 94 Room Air 01/14/25 08:00 Room Air 01/14/25 07:44 36.7 C 55 L 17 101/58 L 93 Room Air 01/14/25 07:00 55 L PG Care Time/CCT Total # of Minutes Spent Total Time Spent with Patient: Total time spent is greater than 50% in coordination of care (as documented) at patient's floor/unit and/or counseling patient: Coding Level of Care Code 72238 INT INP/OBS CARE 2/55MIN Diagnoses Interstitial lung abnormality present on imaging study R91.8 Lung crackles R09.89
--- NOTE | 2025-01-14 17:15 | Hospitalist Progress Note ---
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 Head CT with no acute intracranial pathology. Cervical spine CT without evidence of fracture or traumatic subluxation. Right foot and ankle XR imaging notable for a nondisplaced fracture of the distal aspect of the proximal phalanx, fifth digit Per Admitting Provider, ED provider discussed finding with on-call ortho surgeon, Dr. Reza and recommended to continue conservative management with WBAT, postop shoe application and no need for surgical intervention. Will follow up Ortho eval PT/OT Fall precautions. 01/13 Continue conservative management including orthopedic shoe Pain control, PT and OT evaluation 01/14 continue conservative management (3) Altered mental state: (4) UTI (urinary tract infection): Plan: Anaplasmosis Head CT reviewed and w/o any acute intracranial findings. Encephalopathy, likely metabolic UA noted 2+ bacteria but negative nitrite, esterase and 0-5 which makes me doubt UTI Blood cultures in lab However, considering patient is a poor historian and had fever of 38.1/WBC of 12K yesterday; cannot rule out Sepsis. Unclear cause at this time Chest CT did not show acute findings but noted findings of interstitial lung disease Follow up infectious workup Continue IV ceftriaxone for now and deescalate antibiotics as appropriate 01/13 CBC showing leukopenia and thrombocytopenia Peripheral smear ordered, positive for intracytoplasmic inclusion bodies, consistent with anaplasmosis doxycycline twice daily ordered platelet level trending down: 117, 85, 48 No signs of active bleeding Will hold heparin subcutaneous, aspirin and Plavix for now Hopefully with initiation of doxycycline, will see improvement of leukopenia and thrombocytopenia soon follow-up urine and blood cultures 01/14 Afebrile CBC continues to trend down slightly Continue (5) History of CVA (cerebrovascular accident): Plan: Baseline residual expressive aphasia s/p prior left basal ganglia stroke in February 2017 which was treated with thrombolytic therapy. No issues with swallowing at baseline; tolerates a soft diet at home without any complications. Continue minced/moist diet, Aspiration precautions. Continue ASA and statin. 01/14 Hold aspirin, Plavix in light of thrombocytopenia less than 50K (6) Interstitial lung abnormality present on imaging study: Plan: Chest CT and CTAP noting findings of interstitial lung disease with a basilar predominance and significant involvement of the peribronchovascular regions. No prior diagnosis of such per Admitting Provider; Currently on room air 01/14 Pulmonary service consulted for suspicious lung disease in the setting of anaplasmosis Check for procalcitonin tomorrow, If elevated, will broaden antibiotic coverage Possible aspiration component? Will order speech therapy eval Appreciate pulmonary service recommendations (7) HTN (hypertension): Plan: BP on the lower side Hold home losartan and HCTZ for now. Monitor Other Chronic Medical Conditions: Depression - Continue Zoloft. Recurrent Angina - Continue Imdur. GERD - Continue PPI. DVT Prophylaxis: SQ Heparin--> hold for now in light of thrombocytopenia Code Status: FULL CODE - Per discussion with the patient's son, Elver, over the phone. Disposition Lives with at home PT OT evaluation in progress Admission and Anticipated Discharge Date Admission Date: January 11, 2025 Subjective follow-up for anaplasmosis, toe fracture status post mechanical fall, Etc. Seen resting in bed, comfortable, not in distress States he feels about the same as yesterday Still feeling on the weak side Denies cough, shortness of breath, fevers or chills Having some pain over the right rib area Denies pain over the foot No other symptoms Review of Systems Review of Systems: all noted and negative except for above Physical Exam Physical Exam: General- oriented x 3, not in distress, speaks in sentences with no effort or accessory muscle use Eyes- anicteric Neck- no JVD Lungs- mild rales bilateral bases, no wheezing Heart- normal rate, regular rhythm; no murmurs Abdomen- normal bowel sounds, nondistended, soft, nontender Extremities- left lower extremity: no pretibial edema, no calf tenderness right lower extremity: Ortho shoe in place Neuro- alert, oriented x 3; no gross focal neurologic deficits Skin- warm & dry Results & Data Results & Data Vital Signs (Past 12 Hours) Vital Signs Temp Pulse Pulse Resp BP Pulse Ox O2 Del Method 01/14/25 15:45 Room Air 01/14/25 15:41 36.4 C L 62 20 108/64 95 Room Air 01/14/25 14:09 55 L 01/14/25 11:36 36.8 C 68 17 104/63 94 Room Air 01/14/25 08:00 Room Air 01/14/25 07:44 36.7 C 55 L 17 101/58 L 93 Room Air 01/14/25 07:00 55 L all noted and reviewed including below (3) Altered mental state Altered mental status type: unspecified Qualified Code(s): R41.82 - Altered mental status, unspecified (7) HTN (hypertension) Hypertension type: unspecified Qualified Code(s): I10 - Essential (primary) hypertension
[2025-01-14] MEDS: POTASSIUM CHLORIDE 10 MEQ TABCR PO STA (17:48)
[2025-01-15 09:25] LABS: Albumin Level 2.9 gm/dl (3.4-5.0); BUN Creatinine Ratio 20.2 (10-20); Bilirubin Direct 0.2 mg/dl (0-0.2); Bilirubin,Total 1.2 mg/dl (0.2-1.0); Calcium 7.8 mg/dl (8.6-10.3); Creatinine Clr Calc Pharmacy 54.3 ml/min; Magnesium 1.8 mg/dl (1.7-2.4); Potassium 3.9 mmol/L (3.5-5.1); Total Protein 5.7 gm/dl (6.0-8.3)
[2025-01-15] MEDS: 4.5GM X1 IV STA (10:32)
[2025-01-15 12:23] LABS: Hematocrit (blood only) 38.7 % (42.0-52.0); Hemoglobin 13.5 g/dl (14.0-18.0); Mean Corpuscular Hemoglobin 31.6 pg (25.0-34.0); Mean Corpuscular Hgb Conc 34.9 g/dL (32.0-36.0); Mean Corpuscular Volume 90.6 fL (80.0-100.0); Mean Platelet Volume 11.9 fL (9.4-12.4); Platelet Count 46 K/uL (130-400); RDW Coefficient of Variation 14.6 % (11.5-14.5); RDW Standard Deviation 48.9 fL (36.4-46.3); Red Blood Count 4.27 M/uL (4.70-6.10); White Blood Count 2.99 K/ul (4.8-10.8)
[2025-01-15 13:10] LABS: Acanthocytes 1+; Basophils # (auto) 0.02 K/uL (0.00-0.20); Basophils % (auto) 0.7 %; Echinocytes 1+; Eosinophils # (auto) 0.06 K/uL (0.00-0.50); Immature Granulocytes # (auto) 0.02 K/uL (0.01-0.20); Immature Granulocytes % (auto) 0.7 %; Lymphocytes # (auto) 0.83 K/uL (1.20-3.40); Lymphocytes % (auto) 27.8 %; Monocytes # (auto) 0.26 K/uL (0.11-0.59); Monocytes % (auto) 8.7 %; Neutrophils % (auto) 60.1 %
[2025-01-15] MEDS ORDERED: Nursing to Pharmacy Communication SCH (14:30)
--- NOTE | 2025-01-15 16:47 | Hospitalist Progress Note ---
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 Head CT with no acute intracranial pathology. Cervical spine CT without evidence of fracture or traumatic subluxation. Right foot and ankle XR imaging notable for a nondisplaced fracture of the distal aspect of the proximal phalanx, fifth digit Per Admitting Provider, ED provider discussed finding with on-call ortho surgeon, Dr. Reza and recommended to continue conservative management with WBAT, postop shoe application and no need for surgical intervention. Will follow up Ortho eval PT/OT Fall precautions. 01/13 Continue conservative management including orthopedic shoe Pain control, PT and OT evaluation 01/15 continue conservative management PT/OT (3) Altered mental state: (4) UTI (urinary tract infection): Plan: Anaplasmosis Head CT reviewed and w/o any acute intracranial findings. Encephalopathy, likely metabolic UA noted 2+ bacteria but negative nitrite, esterase and 0-5 which makes me doubt UTI Blood cultures in lab However, considering patient is a poor historian and had fever of 38.1/WBC of 12K yesterday; cannot rule out Sepsis. Unclear cause at this time Chest CT did not show acute findings but noted findings of interstitial lung disease Follow up infectious workup Continue IV ceftriaxone for now and deescalate antibiotics as appropriate 01/13 CBC showing leukopenia and thrombocytopenia Peripheral smear ordered, positive for intracytoplasmic inclusion bodies, consistent with anaplasmosis doxycycline twice daily ordered platelet level trending down: 117, 85, 48 No signs of active bleeding Will hold heparin subcutaneous, aspirin and Plavix for now Hopefully with initiation of doxycycline, will see improvement of leukopenia and thrombocytopenia soon follow-up urine and blood cultures 01/14 Afebrile CBC continues to trend down slightly Continue 01/15 Seems to be clinically improving overall Afebrile CBC still with low counts, but stable overall no bleeding Continue doxycycline (5) History of CVA (cerebrovascular accident): Plan: Baseline residual expressive aphasia s/p prior left basal ganglia stroke in February 2017 which was treated with thrombolytic therapy. No issues with swallowing at baseline; tolerates a soft diet at home without any complications. Continue minced/moist diet, Aspiration precautions. Continue ASA and statin. 01/14 Hold aspirin, Plavix in light of thrombocytopenia less than 50K (6) Interstitial lung abnormality present on imaging study: Plan: Chest CT and CTAP noting findings of interstitial lung disease with a basilar predominance and significant involvement of the peribronchovascular regions. No prior diagnosis of such per Admitting Provider; Currently on room air 01/14 Pulmonary service consulted for suspicious lung disease in the setting of anaplasmosis Check for procalcitonin tomorrow, If elevated, will broaden antibiotic coverage Possible aspiration component? Will order speech therapy eval Appreciate pulmonary service recommendations 01/15 Procalcitonin elevated Zosyn IV initiated Speech therapy service also on board (7) HTN (hypertension): Plan: BP on the lower side Hold home losartan and HCTZ for now. Monitor Other Chronic Medical Conditions: Depression - Continue Zoloft. Recurrent Angina - Continue Imdur. GERD - Continue PPI. DVT Prophylaxis: SQ Heparin--> hold for now in light of thrombocytopenia Code Status: FULL CODE - Per discussion with the patient's son, Elver, over the phone. Disposition Lives with at home PT OT evaluation in progress plan of care discussed with patient and his family at bedside in detail and at length all questions answered they are understanding, agreeable, comfortable with the plan of care Admission and Anticipated Discharge Date Admission Date: January 11, 2025 Subjective Follow-up for anaplasmosis, pneumonia, etc. Seen resting in bedside chair, comfortable, oriented, answering questions appropriately Patient's son and family at bedside visiting States he feels improved today less weak Denies shortness of breath or cough No fevers or chills No other new symptoms Review of Systems Review of Systems: all noted and negative except for above Physical Exam Physical Exam: General- oriented x 3, not in distress, speaks in sentences with no effort or accessory muscle use Eyes- anicteric Neck- no JVD Lungs- mild diffuse rales, faint, no wheezing Heart- normal rate, regular rhythm; no murmurs Abdomen- normal bowel sounds, nondistended, soft, nontender Extremities- no pretibial edema, no calf tenderness right foot: Ortho shoe in place Neuro- alert, oriented x 3; no gross focal neurologic deficits Skin- warm & dry Results & Data Results & Data Vital Signs (Past 12 Hours) Vital Signs Temp Pulse Pulse Resp BP Pulse Ox O2 Del Method 01/15/25 14:02 57 L 01/15/25 11:26 36.4 C L 66 16 102/61 95 Room Air 01/15/25 09:57 Room Air 01/15/25 08:13 36.6 C 69 16 115/69 93 Room Air 01/15/25 05:51 66 (3) Altered mental state Altered mental status type: unspecified Qualified Code(s): R41.82 - Altered mental status, unspecified (7) HTN (hypertension) Hypertension type: unspecified Qualified Code(s): I10 - Essential (primary) hypertension
[2025-01-15] MEDS: PIPERACILLIN/TAZOBACTAM 4.5 GM/100 ML BAG IV SCH (16:52)
--- NOTE | 2025-01-15 17:35 | Pulmonology Progress Note ---
Date of Service January 15, 2025 Assessment & Plan (1) Interstitial lung abnormality present on imaging study: Plan: Incidental finding of interstitial abnormality on CT chest. ?Component of aspiration pneumonitis. Pro-Domo mildly elevated today. Antibiotics broadened to Zosyn. If clinically he remains stable tomorrow, can likely de-escalate to Augmentin and doxycycline. Recommend outpatient follow-up high-resolution CT chest with prone and supine imaging in 6 to 8 weeks. Consider outpatient PFTs depending on clinical symptom burden as outpatient. Doubtful that the patient would be a good candidate for therapeutics such as chronic immunosuppressive therapy or antifibrotic therapy if he is found to have ILD given his underlying advanced age, coronary artery disease and history of stroke. Will also hold on further serologic ILD testing as it is unclear whether the patient truly has interstitial lung disease or whether this is an acute finding. Plan of care discussed with the patient and patient's son. Thank you. Please call with questions. Will follow-up tomorrow. (2) Lung crackles: (3) Acute pneumonia: Admission and Anticipated Discharge Date Admission Date: January 11, 2025 Subjective Patient sitting up in a chair today. Saturating well on room air. Family at bedside including son and . Denies any chest pain, cough, fevers, chills or night sweats. Review of Systems Review of Systems: All systems reviewed & are unremarkable except as noted in HPI & below Physical Exam Physical Exam: Constitutional: Patient appears to be of their stated age. Patient is in no apparent distress. Patient is well-developed. Eyes: Pupils are equal round and reactive to light. Conjunctivae are normal. Anicteric sclera. Ears nose, mouth and throat: Mallampati class 2. Normal posterior oropharynx. Uvula is midline. Neck: Trachea is midline. Visual inspection is normal. Respiratory: Mild focal crackles noted in the lower lobes bilaterally. Cardiovascular: Regular rate and rhythm. No murmurs. No edema. Gastrointestinal: Normal bowel sounds, soft, nontender and nondistended. No hepatosplenomegaly noted. Musculoskeletal: Right foot in an immobilizer. Skin: No rashes, warm dry and intact. Neurologic: Dysarthric at baseline. Diffusely weak. Psychiatric: Alert and oriented x3 with a euthymic affect. Results & Data Results & Data Vital Signs (Past 12 Hours) Vital Signs Temp Pulse Pulse Resp BP Pulse Ox O2 Del Method 01/15/25 14:02 57 L 01/15/25 11:26 36.4 C L 66 16 102/61 95 Room Air 01/15/25 09:57 Room Air 01/15/25 08:13 36.6 C 69 16 115/69 93 Room Air 01/15/25 05:51 66 PG Care Time/CCT Total # of Minutes Spent Total Time Spent with Patient: Total time spent is greater than 50% in coordination of care (as documented) at patient's floor/unit and/or counseling patient: Coding Level of Care Code 10954 SUB INP/OBS CARE 2/35MIN Diagnoses Interstitial lung abnormality present on imaging study R91.8 Lung crackles R09.89 Acute pneumonia J18.9
[2025-01-16 06:58] LABS: Hematocrit (blood only) 36.7 % (42.0-52.0); Hemoglobin 12.7 g/dl (14.0-18.0); Mean Corpuscular Hemoglobin 31.4 pg (25.0-34.0); Mean Corpuscular Hgb Conc 34.6 g/dL (32.0-36.0); Mean Corpuscular Volume 90.8 fL (80.0-100.0); Mean Platelet Volume 11.3 fL (9.4-12.4); Platelet Count 55 K/uL (130-400); RDW Coefficient of Variation 14.6 % (11.5-14.5); RDW Standard Deviation 48.7 fL (36.4-46.3); Red Blood Count 4.04 M/uL (4.70-6.10); White Blood Count 4.13 K/ul (4.8-10.8)
[2025-01-16 07:18] LABS: Albumin Level 2.7 gm/dl (3.4-5.0); Bilirubin Direct 0.2 mg/dl (0-0.2); Bilirubin,Total 1.1 mg/dl (0.2-1.0); Total Protein 5.4 gm/dl (6.0-8.3)
[2025-01-16 07:47] LABS: Toxic Vacuolation 2+
[2025-01-16 08:00] LABS: Basophils # (auto) 0.02 K/uL (0.00-0.20); Basophils % (auto) 0.5 %; Eosinophils # (auto) 0.28 K/uL (0.00-0.50); Eosinophils % (auto) 6.8 %; Immature Granulocytes # (auto) 0.02 K/uL (0.01-0.20); Immature Granulocytes % (auto) 0.5 %; Lymphocytes # (auto) 1.59 K/uL (1.20-3.40); Lymphocytes % (auto) 38.5 %; Monocytes # (auto) 0.28 K/uL (0.11-0.59); Monocytes % (auto) 6.8 %; Neutrophils # (auto) 1.94 K/uL (1.40-6.50); Neutrophils % (auto) 46.9 %
--- NOTE | 2025-01-16 13:37 | Pulmonology Progress Note ---
Date of Service January 16, 2025 Assessment & Plan (1) Interstitial lung abnormality present on imaging study: Plan: Incidental finding of interstitial abnormality on CT chest. ?Component of aspiration pneumonitis/pneumonia. De-escalated antibiotics from Zosyn to Augmentin 01/16/25. Recommend 7 days total of antibiotics for pneumonia. Recommend outpatient follow-up high-resolution CT chest with prone and supine imaging in 6 to 8 weeks. Consider outpatient PFTs depending on clinical symptom burden as outpatient. Doubtful that the patient would be a good candidate for therapeutics such as chronic immunosuppressive therapy or antifibrotic therapy if he is found to have ILD given his underlying advanced age, coronary artery disease and history of stroke. Will also hold on further serologic ILD testing as it is unclear whether the patient truly has interstitial lung disease or whether this is an acute finding. Thank you. Please call with questions. Pulmonary to ute off at this time. Patient can likely be dismissed from the hospital formal a pulmonary perspective. (2) Lung crackles: (3) Acute pneumonia: Admission and Anticipated Discharge Date Admission Date: January 11, 2025 Subjective No change subjectively. Denies cough or shortness of breath. No chest pain. Review of Systems Review of Systems: All systems reviewed & are unremarkable except as noted in HPI & below Physical Exam Physical Exam: Constitutional: Patient appears to be of their stated age. Patient is in no apparent distress. Patient is well-developed. Eyes: Pupils are equal round and reactive to light. Conjunctivae are normal. Anicteric sclera. Ears nose, mouth and throat: Mallampati class 2. Normal posterior oropharynx. Uvula is midline. Neck: Trachea is midline. Visual inspection is normal. Respiratory: Mild focal crackles noted in the lower lobes bilaterally. Cardiovascular: Regular rate and rhythm. No murmurs. No edema. Gastrointestinal: Normal bowel sounds, soft, nontender and nondistended. No hepatosplenomegaly noted. Musculoskeletal: Right foot in an immobilizer. Skin: No rashes, warm dry and intact. Neurologic: Dysarthric at baseline. Diffusely weak. Psychiatric: Alert and oriented x3 with a euthymic affect. Results & Data Results & Data Vital Signs (Past 12 Hours) Vital Signs Temp Pulse Resp BP BP Pulse Ox O2 Del Method 01/16/25 11:51 36.5 C 61 18 104/62 95 Room Air 01/16/25 07:14 36.5 C 54 L 18 121/69 96 Room Air 01/16/25 03:35 36.4 C L 50 L 16 114/61 93 Room Air PG Care Time/CCT Total # of Minutes Spent Total Time Spent with Patient: Total time spent is greater than 50% in coordination of care (as documented) at patient's floor/unit and/or counseling patient: Coding Level of Care Code 02741 SUB INP/OBS CARE 2/35MIN Diagnoses Interstitial lung abnormality present on imaging study R91.8 Lung crackles R09.89 Acute pneumonia J18.9
[2025-01-16] MEDS: AMOXICILLIN/CLAVULANATE 875 MG TAB PO SCH (17:11)
--- NOTE | 2025-01-16 17:41 | Hospitalist Progress Note ---
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 Head CT with no acute intracranial pathology. Cervical spine CT without evidence of fracture or traumatic subluxation. Right foot and ankle XR imaging notable for a nondisplaced fracture of the distal aspect of the proximal phalanx, fifth digit Per Admitting Provider, ED provider discussed finding with on-call ortho surgeon, Dr. Reza and recommended to continue conservative management with WBAT, postop shoe application and no need for surgical intervention. Will follow up Ortho eval PT/OT Fall precautions. 01/13 Continue conservative management including orthopedic shoe Pain control, PT and OT evaluation 01/16 continue conservative management PT/OT per Ortho: Continue ambulation in the postop shoe. He was reassured that I find no evidence for infection in his foot. The area can be kept clean with soap and water and covered with either Xeroform or bacitracin. Keep it covered until healed. Follow-up in the office in a week for reassessment. He can be reevaluated in the hospital if he is still admitted at that point. Elevate the left foot as needed for edema control. (3) Altered mental state: (4) UTI (urinary tract infection): Plan: Anaplasmosis Head CT reviewed and w/o any acute intracranial findings. Encephalopathy, likely metabolic UA noted 2+ bacteria but negative nitrite, esterase and 0-5 which makes me doubt UTI Blood cultures in lab However, considering patient is a poor historian and had fever of 38.1/WBC of 12K yesterday; cannot rule out Sepsis. Unclear cause at this time Chest CT did not show acute findings but noted findings of interstitial lung disease Follow up infectious workup Continue IV ceftriaxone for now and deescalate antibiotics as appropriate 01/13 CBC showing leukopenia and thrombocytopenia Peripheral smear ordered, positive for intracytoplasmic inclusion bodies, consistent with anaplasmosis doxycycline twice daily ordered platelet level trending down: 117, 85, 48 No signs of active bleeding Will hold heparin subcutaneous, aspirin and Plavix for now Hopefully with initiation of doxycycline, will see improvement of leukopenia and thrombocytopenia soon follow-up urine and blood cultures 01/14 Afebrile CBC continues to trend down slightly Continue 01/15 Seems to be clinically improving overall Afebrile CBC still with low counts, but stable overall no bleeding Continue doxycycline 01/16 CBC improving continue Doxy (5) History of CVA (cerebrovascular accident): Plan: Baseline residual expressive aphasia s/p prior left basal ganglia stroke in February 2017 which was treated with thrombolytic therapy. No issues with swallowing at baseline; tolerates a soft diet at home without any complications. Continue minced/moist diet, Aspiration precautions. Continue ASA and statin. 01/16 Hold aspirin, Plavix in light of thrombocytopenia less than 50K--> 55k today, possible resume tomorrow (6) Interstitial lung abnormality present on imaging study: Plan: Chest CT and CTAP noting findings of interstitial lung disease with a basilar predominance and significant involvement of the peribronchovascular regions. No prior diagnosis of such per Admitting Provider; Currently on room air 01/14 Pulmonary service consulted for suspicious lung disease in the setting of anaplasmosis Check for procalcitonin tomorrow, If elevated, will broaden antibiotic coverage Possible aspiration component? Will order speech therapy eval Appreciate pulmonary service recommendations 01/15 Procalcitonin elevated Zosyn IV initiated Speech therapy service also on board 01/16 transitioned to Augmentin Incidental finding of interstitial abnormality on CT chest. ?Component of aspiration pneumonitis/pneumonia. De-escalated antibiotics from Zosyn to Augmentin 01/16/25. Recommend 7 days total of antibiotics for pneumonia. Recommend outpatient follow-up high-resolution CT chest with prone and supine imaging in 6 to 8 weeks. Consider outpatient PFTs depending on clinical symptom burden as outpatient. Doubtful that the patient would be a good candidate for therapeutics such as chronic immunosuppressive therapy or antifibrotic therapy if he is found to have ILD given his underlying advanced age, coronary artery disease and history of stroke. Will also hold on further serologic ILD testing as it is unclear whether the patient truly has interstitial lung disease or whether this is an acute finding. (7) HTN (hypertension): Plan: BP on the lower side Hold home losartan and HCTZ for now. Monitor Other Chronic Medical Conditions: Depression - Continue Zoloft. Recurrent Angina - Continue Imdur. GERD - Continue PPI. DVT Prophylaxis: SQ Heparin--> hold for now in light of thrombocytopenia Code Status: FULL CODE - Per discussion with the patient's son, Elver, over the phone. Disposition Lives with at home patient prefers to go home with home health, family agreeable anticipate d/c tomorrow plan of care discussed with patient and his family at bedside in detail and at length all questions answered they are understanding, agreeable, comfortable with the plan of care Admission and Anticipated Discharge Date Admission Date: January 11, 2025 Subjective ff up for anaplasmosis, pneumonia, etc seen resting in bed, comfortable family at bedside visiting states he feels fine overall no shortness of breath, cough no other new symptoms Review of Systems Review of Systems: all noted and negative except for above Physical Exam Physical Exam: General- oriented x 3, not in distress, speaks in sentences with no effort or accessory muscle use Eyes- anicteric Neck- no JVD Lungs- mild velcro like crackles BL no wheezing Heart- normal rate, regular rhythm; no murmurs Abdomen- normal bowel sounds, nondistended, soft, nontender Extremities- no pretibial edema, no calf tenderness R foot: dressing in place no bleeding/discharge Neuro- alert, oriented x 3; no gross focal neurologic deficits Skin- warm & dry Results & Data Results & Data Vital Signs (Past 12 Hours) Vital Signs Temp Pulse Pulse Resp BP BP Pulse Ox 01/16/25 15:21 36.4 C L 54 L 18 128/72 94 01/16/25 13:00 56 L 01/16/25 11:51 36.5 C 61 18 104/62 95 01/16/25 07:14 36.5 C 54 L 18 121/69 96 O2 Del Method 01/16/25 15:21 Room Air 01/16/25 13:00 01/16/25 11:51 Room Air 01/16/25 07:14 Room Air all noted and reviewed including below (3) Altered mental state Altered mental status type: unspecified Qualified Code(s): R41.82 - Altered mental status, unspecified (7) HTN (hypertension) Hypertension type: unspecified Qualified Code(s): I10 - Essential (primary) hypertension
[2025-01-16] MEDS: DOXYCYCLINE HYCLATE 100 MG CAP PO SCH (20:21)
[2025-01-17 04:00] VITALS: PULSE 55
[2025-01-17 06:44] LABS: Hematocrit (blood only) 36.7 % (42.0-52.0); Hemoglobin 12.7 g/dl (14.0-18.0); Mean Corpuscular Hemoglobin 31.8 pg (25.0-34.0); Mean Corpuscular Hgb Conc 34.6 g/dL (32.0-36.0); Mean Platelet Volume 10.8 fL (9.4-12.4); Platelet Count 77 K/uL (130-400); RDW Coefficient of Variation 14.6 % (11.5-14.5); RDW Standard Deviation 49.3 fL (36.4-46.3); Red Blood Count 3.99 M/uL (4.70-6.10); White Blood Count 5.68 K/ul (4.8-10.8)
[2025-01-17 07:29] LABS: Basophils # (auto) 0.03 K/uL (0.00-0.20); Basophils % (auto) 0.5 %; Immature Granulocytes # (auto) 0.01 K/uL (0.01-0.20); Immature Granulocytes % (auto) 0.2 %; Lymphocytes # (auto) 2.53 K/uL (1.20-3.40); Lymphocytes % (auto) 44.5 %; Monocytes # (auto) 0.48 K/uL (0.11-0.59); Monocytes % (auto) 8.5 %; Neutrophils # (auto) 2.23 K/uL (1.40-6.50); Neutrophils % (auto) 39.3 %
--- NOTE | 2025-01-17 07:29 | Hospitalist Progress Note ---
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 Head CT with no acute intracranial pathology. Cervical spine CT without evidence of fracture or traumatic subluxation. Right foot and ankle XR imaging notable for a nondisplaced fracture of the distal aspect of the proximal phalanx, fifth digit Per Admitting Provider, ED provider discussed finding with on-call ortho surgeon, Dr. Reza and recommended to continue conservative management with WBAT, postop shoe application and no need for surgical intervention. Will follow up Ortho eval PT/OT Fall precautions. 01/13 Continue conservative management including orthopedic shoe Pain control, PT and OT evaluation 01/17 continue conservative management per Ortho: Continue ambulation in the postop shoe. He was reassured that I find no evidence for infection in his foot. The area can be kept clean with soap and water and covered with either Xeroform or bacitracin. Keep it covered until healed. Follow-up in the office in a week for reassessment. He can be ree valuated in the hospital if he is still admitted at that point. Elevate the left foot as needed for edema control. PT OT recommending inpatient rehab Patient prefers to be discharged to home with home health services Family agreeable Daily wound dressing Follow-up with Ortho in 1 week (3) Altered mental state: (4) UTI (urinary tract infection): Plan: Anaplasmosis Head CT reviewed and w/o any acute intracranial findings. Encephalopathy, likely metabolic UA noted 2+ bacteria but negative nitrite, esterase and 0-5 which makes me doubt UTI Blood cultures in lab However, considering patient is a poor historian and had fever of 38.1/WBC of 12K yesterday; cannot rule out Sepsis. Unclear cause at this time Chest CT did not show acute findings but noted findings of interstitial lung disease Follow up infectious workup Continue IV ceftriaxone for now and deescalate antibiotics as appropriate 01/13 CBC showing leukopenia and thrombocytopenia Peripheral smear ordered, positive for intracytoplasmic inclusion bodies, consistent with anaplasmosis doxycycline twice daily ordered platelet level trending down: 117, 85, 48 No signs of active bleeding Will hold heparin subcutaneous, aspirin and Plavix for now Hopefully with initiation of doxycycline, will see improvement of leukopenia and thrombocytopenia soon follow-up urine and blood cultures 01/14 Afebrile CBC continues to trend down slightly Continue 01/15 Seems to be clinically improving overall Afebrile CBC still with low counts, but stable overall no bleeding Continue doxycycline 01/17 CBC improving WBC 2.2 --> 5.6 Hemoglobin 13.2---> 12.7 Platelet count 40--> 77 LFTs mildly elevated T. bili 1.1 AST 120 ALT 71 Alk phos 66 continue Doxycycline mg twice daily times x 6 more days to complete 10-day course Please repeat CBC, BMP, liver panel on follow-up with PCP in 1 week (5) History of CVA (cerebrovascular accident): Plan: Baseline residual expressive aphasia s/p prior left basal ganglia stroke in February 2017 which was treated with thrombolytic therapy. No issues with swallowing at baseline; tolerates a soft diet at home without any complications. Continue minced/moist diet, Aspiration precautions. aspirin and Plavix held in light of platelet count below 50 01/17 Platelet count now 77K patient has history of CVA and CAD with stent resume plavix for now resume aspirin in 2 days repeat CBC on ff up with PCP (6) Interstitial lung abnormality present on imaging study: Plan: Chest CT and CTAP noting findings of interstitial lung disease with a basilar predominance and significant involvement of the peribronchovascular regions. No prior diagnosis of such per Admitting Provider; Currently on room air 01/14 Pulmonary service consulted for suspicious lung disease in the setting of anaplasmosis Check for procalcitonin tomorrow, If elevated, will broaden antibiotic coverage Possible aspiration component? Will order speech therapy eval Appreciate pulmonary service recommendations 01/15 Procalcitonin elevated Zosyn IV initiated Speech therapy service also on board 01/16 transitioned to Augmentin Incidental finding of interstitial abnormality on CT chest. ?Component of aspiration pneumonitis/pneumonia. De-escalated antibiotics from Zosyn to Augmentin 01/16/25. Recommend 7 days total of antibiotics for pneumonia. 01/17 Respiratory status stable Continue Augmentin twice daily x 5 more days to complete 7-day course Recommend outpatient follow-up high-resolution CT chest with prone and supine imaging in 6 to 8 weeks. Consider outpatient PFTs depending on clinical symptom burden as outpatient. Doubtful that the patient would be a good candidate for therapeutics such as chronic immunosuppressive therapy or antifibrotic therapy if he is found to have ILD given his underlying advanced age, coronary artery disease and history of stroke. Will also hold on further serologic ILD testing as it is unclear whether the patient truly has interstitial lung disease or whether this is an acute finding. Follow-up with [facility] pulmonology service Dr. Cruz in 2 weeks (7) HTN (hypertension): Plan: BP on the lower side Hold home losartan and HCTZ for now. Monitor BP on follow-up with PCP and resume accordingly Other Chronic Medical Conditions: Depression - Continue Zoloft. Recurrent Angina - Continue Imdur. GERD - Continue PPI. DVT Prophylaxis: SQ Heparin--> hold for now in light of thrombocytopenia Code Status: FULL CODE - Per discussion with the patient's son, Elver, over the phone. Disposition patient prefers to go home with home health, family agreeable discharge to home with home health services Admission and Anticipated Discharge Date Admission Date: January 11, 2025 Subjective Follow-up for anaplasmosis, pneumonia, etc. resting in bed, Comfortable States he feels fine overall No shortness of breath, cough No abdominal pain, nausea, fevers or chills No other new symptoms States he is ready for discharge today Review of Systems Review of Systems: all noted and negative except for above Physical Exam Physical Exam: General- oriented x 3, not in distress, speaks in sentences with no effort or accessory muscle use Eyes- anicteric Neck- no JVD Lungs- mild velcro rales BL no wheezing Heart- normal rate, regular rhythm; no murmurs Abdomen- normal bowel sounds, nondistended, soft, no tenderness Extremities- no pretibial edema, no calf tenderness Neuro- alert, oriented x 3; no gross focal neurologic deficits Skin- warm & dry Results & Data Results & Data Vital Signs (Past 12 Hours) Vital Signs Temp Pulse Pulse Resp BP BP Pulse Ox 01/17/25 03:31 36.9 C 55 L 16 94/45 L 94 01/16/25 22:39 36.8 C 61 18 129/73 95 01/16/25 21:43 56 L 01/16/25 20:00 O2 Del Method 01/17/25 03:31 Room Air 01/16/25 22:39 Room Air 01/16/25 21:43 01/16/25 20:00 Room Air all noted and reviewed including below (3) Altered mental state Altered mental status type: unspecified Qualified Code(s): R41.82 - Altered mental status, unspecified (7) HTN (hypertension) Hypertension type: unspecified Qualified Code(s): I10 - Essential (primary) hypertension
[2025-01-17 07:30] LABS: Acanthocytes 1+; Polychromasia 1+
[2025-01-17 08:00] VITALS: BP 121/70; RESP 18; TEMP 97.7; O2SAT 96
[2025-01-17 08:33] LABS: Lyme Screen Rflx Confirmation Positive (Negative)
[2025-01-17 09:07] LABS: Lyme Ab IgG 2nd Tier Confirm Positive (Negative)
[2025-01-17 09:08] LABS: Lyme Ab IgM 2nd Tier Confirm Negative (Negative)
--- NOTE | 2025-01-17 15:56 | Discharge Summary ---
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 Head CT with no acute intracranial pathology. Cervical spine CT without evidence of fracture or traumatic subluxation. Right foot and ankle XR imaging notable for a nondisplaced fracture of the distal aspect of the proximal phalanx, fifth digit Per Admitting Provider, ED provider discussed finding with on-call ortho surgeon, Dr. Reza and recommended to continue conservative management with WBAT, postop shoe application and no need for surgical intervention. Will follow up Ortho eval PT/OT Fall precautions. 01/17 continue conservative management per Ortho: Continue ambulation in the postop shoe. He was reassured that I find no evidence for infection in his foot. The area can be kept clean with soap and water and covered with either Xeroform or bacitracin. Keep it covered until healed. Follow-up in the office in a week for reassessment. He can be reevaluated in the hospital if he is still admitted at that point. Elevate the left foot as needed for edema control. 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 UA noted 2+ bacteria but negative nitrite, esterase and 0-5 which makes me doubt UTI Chest CT: No acute finding in the chest, abdomen or pelvis. Findings of interstitial lung disease, has a basilar predominance, with significant involvement of the peribronchovascular regions. Consider NSIP, cryptogenic organizing pneumonia, or chronic hypersensitivity pneumonitis. 01/13 CBC showing leukopenia and thrombocytopenia Peripheral smear ordered, positive for intracytoplasmic inclusion bodies, consistent with anaplasmosis doxycycline twice daily ordered platelet level trending down: 117, 85, 48 No signs of active bleeding 01/17 clinically improved overall afebrile pancytopenia improving WBC 2.2 --> 5.6 Hemoglobin 13.2---> 12.7 Platelet count 40--> 77 LFTs mildly elevated T. bili 1.1 AST 120 ALT 71 Alk phos 66 continue Doxycycline mg twice daily times x 6 more days to complete 10-day course Please repeat CBC, BMP, liver panel on follow-up with PCP in 1 week (4) History of CVA (cerebrovascular accident): Baseline residual expressive aphasia s/p prior left basal ganglia stroke in February 2017 which was treated with thrombolytic therapy. No issues with swallowing at baseline; tolerates a soft diet at home without any complications. Continue minced/moist diet, Aspiration precautions. aspirin and Plavix held in light of platelet count below 50 01/17 Platelet count now 77K patient has history of CVA and CAD with stent resume plavix for now resume aspirin in 2 days repeat CBC on ff up with PCP- please ensure platelet counts above 100 K has patient on dual antiplatelet (5) Interstitial lung abnormality present on imaging study: (6) Acute pneumonia: Chest CT: No acute finding in the chest, abdomen or pelvis. Findings of interstitial lung disease, has a basilar predominance, with significant involvement of the peribronchovascular regions. Consider NSIP, cryptogenic organizing pneumonia, or chronic hypersensitivity pneumonitis. Pulmonary service consulted- [place]afuerte [facility] [place] [facility] [place]cal[place] elevated Zosyn IV initiated Speech therapy service also on board 01/16 transitioned to Augmentin Incidental finding of interstitial abnormality on CT chest. ?Component of aspiration pneumonitis/pneumonia. De-escalated antibiotics from Zosyn to Augmentin 01/16/25. Recommend 7 days total of antibiotics for pneumonia. 01/17 Respiratory status stable Continue Augmentin twice daily x 5 more days to complete 7-day course Recommend outpatient follow-up high-resolution CT chest with prone and supine imaging in 6 to 8 weeks. Consider outpatient PFTs depending on clinical symptom burden as outpatient. Doubtful that the patient would be a good candidate for therapeutics such as chronic immunosuppressive therapy or antifibrotic therapy if he is found to have ILD given his underlying advanced age, coronary artery disease and history of stroke. Will also hold on further serologic ILD testing as it is unclear whether the patient truly has interstitial lung disease or whether this is an acute finding. Follow-up with [facility] group pulmonology service Dr. Cora lomax in 2 weeks (7) Altered mental state: secondary to encephalopathy from above Result (8) HTN (hypertension): BP on the lower side Hold home losartan and HCTZ for now. Monitor BP on follow-up with PCP and resume accordingly Other Chronic Medical Conditions: Depression - Continue Zoloft. Recurrent Angina - Continue Imdur. GERD - Continue PPI. DVT Prophylaxis: SQ Heparin--> hold for now in light of thrombocytopenia Code Status: FULL CODE - Per discussion with the patient's son, Elver, over the phone. 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 Patient mostly only A&O to himself at the time of my evaluation. Does understand he is in the hospital but unable to identify the correct facility; also unaware of the current date/time. Does recall having a fall earlier today and hitting his head. His son, Elver, and his , Audra, were present at the bedside earlier per discussion with the ED provider. Unfortunately no family is present at bedside at the time of my evaluation. Patient denies any pain or discomfort with direct questioning. Patient notably somnolent during my evaluation but is easily awoken with both verbal and tactile stimuli. Was able to get in contact with the patient's son, Elver, over the phone to [facility] additional history. Patient currently with living at home with his . Fell out of bed this morning whilst attempting to stand up and reportedly hit his head although this was unwitnessed. Patient is typically A&Ox4 and able to conduct ADLs without significant issue, however, he has been progressively weak and lethargic the past several days. He does not typically use any assistive devices for ambulation but unfortunately was so notably weak today that he was using his 's walker to get around the house. Did endorse a mild headache after the fall but no dizziness, lightheadedness or N/V. Noted to have sustained a laceration between the 4th and 5th digits on his right foot during the fall. He seems more confused as well. Known baseline expressive aphasia s/p prior left basal ganglia CVA in February 2017. No issues with swallowing at baseline; tolerates a soft foods diet at home without any complications. No reported fevers or chills. No recent cough or sinus congestion. No reported issues with urinary or bowel habits changes. Has 2 children whom live nearby and provide him with support PRN; no established home health services. Head CT with no acute intracranial pathology. Cervical spine CT without evidence of fracture or traumatic subluxation. Chest CT and CTAP noting findings of interstitial lung disease with a basilar predominance and significant involvement of the peribronchovascular regions. Right foot and ankle XR imaging notable for a nondisplaced fracture of the distal aspect of the proximal phalanx, fifth digit. Admission Exam Per Admitting Provider General: Elderly M. NAD. Laying down in bed. Quite somnolent but arousable with verbal and tactile stimuli. A&O only to self. HEENT: Normocephalic. Bruising on superior aspect of scalp. Conjunctivae normal. External ear/nose normal, oropharynx dry. Respiratory: Normal respiratory effort, lungs clear to auscultation bilaterally. No accessory muscle use. Cardiovascular: Regular rate and rhythm. Trace BLE edema. Abdomen/GI: Normal bowel sounds, soft. Nondistended, nontender to palpation in all quadrants. Extremities/MSK: Gauze bandaging covering R foot - did NOT directly visualize wound b/n 4th and 5th digits of R foot. Postoperative shoe on R foot. Discharge Exam General- oriented x 3, not in distress, speaks in sentences with no effort or accessory muscle use Eyes- anicteric Neck- no JVD Lungs- mild velcro rales BL no wheezing Heart- normal rate, regular rhythm; no murmurs Abdomen- normal bowel sounds, nondistended, soft, no tenderness Extremities- no pretibial edema, no calf tenderness Neuro- alert, oriented x 3; no gross focal neurologic deficits Skin- warm & dry Updated Medication List Medication Instructions Recorded Confirmed Type aspirin 81 mg tablet,delayed 162 mg PO QAM 01/11/25 01/11/25 History release atorvastatin 80 mg tablet 80 mg PO DAILY 01/11/25 01/11/25 History clopidogrel 75 mg tablet 75 mg PO DAILY 01/11/25 01/11/25 History isosorbide mononitrate 30 mg 30 mg PO QAM 01/11/25 01/11/25 History tablet,extended release 24 hr magnesium oxide 400 mg PO QAM 01/11/25 01/11/25 History multivitamin 1 tab PO DAILY 01/11/25 01/11/25 History nitroglycerin 0.4 mg sublingual 0.4 mg sublingual .EVERY 5 MINUTES 01/11/25 01/11/25 History tablet (Nitrostat) PRN Chest Pain omega-3s 300 pm-aod-mgg-other 1 cap PO DAILY 01/11/25 01/11/25 History [id number] oil 1,000 mg capsule ([place]-3 Fish Oil) pantoprazole 20 mg tablet,delayed 20 mg PO QAM 01/11/25 01/11/25 History release sertraline 25 mg tablet 25 mg PO DAILY 01/11/25 01/11/25 History Lactobacillus acidoph-L.bulgaricus 1 tab PO DAILY #30 tabs 01/17/25 Rx 1 million cell tablet (Floranex) amoxicillin 875 mg-potassium 1 tab PO BIDM 5 days #10 tabs 01/17/25 Rx clavulanate 125 mg tablet doxycycline hyclate 100 mg capsule 100 mg PO BID 6 days #12 caps 01/17/25 Rx Hospital Stay Data Consultations 01/11/25 18:05 ED Decision to Admit Stat 01/11/25 19:47 Consult Orthopedic Surgery Routine 01/14/25 13:40 Consult Pulmonology Routine Diagnostic Imagining Performed Laboratory Results WBC 5.68 K/ul (4.8-10.8) 01/17/25 05:43 RBC 3.99 M/uL (4.70-6.10) L 01/17/25 05:43 Hgb 12.7 g/dl (14.0-18.0) L 01/17/25 05:43 Hct 36.7 % (42.0-52.0) L 01/17/25 05:43 MCV 92.0 fL (80.0-100.0) 01/17/25 05:43 MCH 31.8 pg (25.0-34.0) 01/17/25 05:43 MCHC 34.6 g/dL (32.0-36.0) 01/17/25 05:43 RDW Std Deviation 49.3 fL (36.4-46.3) H 01/17/25 05:43 RDW Coeff of Phi 14.6 % (11.5-14.5) H 01/17/25 05:43 Plt Count 77 K/uL (130-400) L 01/17/25 05:43 MPV 10.8 fL (9.4-12.4) 01/17/25 05:43 Immature Gran % (Auto) 0.2 % 01/17/25 05:43 Neut % (Auto) 39.3 % 01/17/25 05:43 Lymph % (Auto) 44.5 % 01/17/25 05:43 Brooke % (Auto) 8.5 % 01/17/25 05:43 Eos % (Auto) 7.0 % 01/17/25 05:43 Baso % (Auto) 0.5 % 01/17/25 05:43 Neut # (Auto) 2.23 K/uL (1.40-6.50) 01/17/25 05:43 Lymph # (Auto) 2.53 K/uL (1.20-3.40) 01/17/25 05:43 Brooke # (Auto) 0.48 K/uL (0.11-0.59) 01/17/25 05:43 Eos # (Auto) 0.40 K/uL (0.00-0.50) 01/17/25 05:43 Baso # (Auto) 0.03 K/uL (0.00-0.20) 01/17/25 05:43 Immature Gran # (Auto) 0.01 K/uL (0.01-0.20) 01/17/25 05:43 Toxic Vacuolation 2+ 01/15/25 08:21 Polychromasia 1+ 01/17/25 05:43 Echinocytes 1+ 01/15/25 08:21 Acanthocytes (Spur) 1+ 01/17/25 05:43 Peripher Smr Path Cons 01/13/25 08:37 PT 11.5 Seconds (9.0-12.0) 01/11/25 16:24 INR 1.1 (0.9-1.1) 01/11/25 16:24 APTT 28 Seconds (21-31) 01/11/25 16:24 PTT Ratio 1.0 01/11/25 16:24 Sodium 134 mmol/L (136-145) L 01/15/25 08:07 Potassium 3.9 mmol/L (3.5-5.1) 01/15/25 08:07 Chloride 105 mmol/L (98-107) 01/15/25 08:07 Carbon Dioxide 24 mmol/L (21-32) 01/15/25 08:07 Anion Gap 5 (3-11) 01/15/25 08:07 BUN 20 mg/dl (6-23) 01/15/25 08:07 Creatinine 0.99 mg/dl (0.6-1.4) 01/15/25 08:07 Est Cr Clr Drug Dosing 54.3 ml/min 01/15/25 08:07 eGFR 73.73 01/15/25 08:07 BUN/Creatinine Ratio 20.2 (10-20) H 01/15/25 08:07 Glucose 91 mg/dl (70-99(Fasting)) 01/15/25 08:07 POC Glucose 92 mg/dl (70-99) 01/13/25 07:58 Calcium 7.8 mg/dl (8.6-10.3) L 01/15/25 08:07 Magnesium 1.8 mg/dl (1.7-2.4) 01/15/25 08:07 Total Bilirubin 1.1 mg/dl (0.2-1.0) H 01/16/25 06:22 Direct Bilirubin 0.2 mg/dl (0-0.2) 01/16/25 06:22 AST 120 U/L (13-39) H 01/16/25 06:22 ALT 71 U/L (7-52) H 01/16/25 06:22 Alkaline Phosphatase 66 U/L (34-104) 01/16/25 06:22 Troponin I High Sens 18.5 pg/ml (0-20) 01/11/25 16:24 Total Protein 5.4 gm/dl (6.0-8.3) L 01/16/25 06:22 Albumin 2.7 gm/dl (3.4-5.0) L 01/16/25 06:22 Globulin 3.0 gm/dl (2.5-4.0) 01/11/25 16:24 Albumin/Globulin Ratio 1.3 (0.9-2) 01/11/25 16:24 Procalcitonin 0.86 ng/ml (0-0.5) H 01/15/25 08:07 TSH 0.773 uIu/ml (0.300-4.500) 01/11/25 16:24 Urine Color Yellow 01/11/25 17:51 Urine Appearance Clear (Clear) 01/11/25 17:51 Urine pH 5.5 (4.5-7.5) 01/11/25 17:51 Ur Specific Elrod >= 1.030 (1.000-1.030) 01/11/25 17:51 Urine Protein 2+ (Negative) H 01/11/25 17:51 Urine Glucose (UA) Negative (Negative) 01/11/25 17:51 Urine Ketones Trace (Negative) H 01/11/25 17:51 Urine Blood 2+ (Negative) H 01/11/25 17:51 Urine Nitrite Negative (Negative) 01/11/25 17:51 Urine Bilirubin Negative (Negative) 01/11/25 17:51 Urine Urobilinogen Negative (Negative) 01/11/25 17:51 Ur Leukocyte Esterase Negative (Negative) 01/11/25 17:51 Urine RBC 6-10 /hpf (0-2) H 01/11/25 17:51 Urine WBC 0-5 /hpf (0-5) 01/11/25 17:51 Ur Epithelial Cells 0-2 /hpf (0-2) 01/11/25 17:51 Urine Bacteria 2+ (None Seen) H 01/11/25 17:51 Urine Mucus Present (None Prsent) A 01/11/25 17:51 Nasal Screen MRSA (PCR) Negative (Negative) 01/15/25 10:15 Adenovirus (PCR) Not Detected (NotDetected) 01/11/25 16:45 Anaplasma Smear See Comment A 01/13/25 08:37 Anaplasma Comment Pos for Anaplasma 01/13/25 08:37 B. pertussis DNA (PCR) Not Detected (NotDetected) 01/11/25 16:45 B.parapertussis DNA PCR Not Detected (NotDetected) 01/11/25 16:45 Lyme Disease Screen Positive (Negative) H 01/17/25 07:27 Lyme Tier 2 IgG Confirm Positive (Negative) H 01/17/25 07:27 Lyme Tier 2 IgM Confirm Negative (Negative) 01/17/25 07:27 C. pneumoniae DNA (PCR) Not Detected (NotDetected) 01/11/25 16:45 Coronavirus OC43 (PCR) Not Detected (NotDetected) 01/11/25 16:45 Coronavirus HKU1 (PCR) Not Detected (NotDetected) 01/11/25 16:45 Coronavirus 229E (PCR) Not Detected (NotDetected) 01/11/25 16:45 SARS-CoV-2 (PCR) Not Detected (NotDetected) 01/11/25 16:45 Coronavirus NL63 (PCR) Not Detected (NotDetected) 01/11/25 16:45 Human Metapneumovir PCR Not Detected (NotDetected) 01/11/25 16:45 Influenza Type A (PCR) Not Detected (NotDetected) 01/11/25 16:45 Influenza Type B (PCR) Not Detected (NotDetected) 01/11/25 16:45 M. pneumoniae (PCR) Not Detected (NotDetected) 01/11/25 16:45 Parainfluenza 1 (PCR) Not Detected (NotDetected) 01/11/25 16:45 Parainfluenza 2 (PCR) Not Detected (NotDetected) 01/11/25 16:45 Parainfluenza 3 (PCR) Not Detected (NotDetected) 01/11/25 16:45 Parainfluenza 4 (PCR) Not Detected (NotDetected) 01/11/25 16:45 RSV (PCR) Not Detected (NotDetected) 01/11/25 16:45 Entero/Rhino (PCR) Not Detected (NotDetected) 01/11/25 16:45 Blood Parasites ID Present 01/13/25 08:37 Impressions Abdomen/Pelvis CT 01/11/25 15:27 EXAMINATION: CT of the chest, abdomen and pelvis performed without the administration of IV contrast TECHNIQUE: Helical CT images from the lung apices through the symphysis pubis were obtained without contrast. Coronal and sagittal reformatted images were generated at a workstation for further assessment. Dose reduction techniques were achieved by using automatic exposure control and/or adjustment of mA and/or kV according to patient size and/or use of iterative reconstruction technique. COMPARISON: None HISTORY: Fall FINDINGS: Lines and tubes: None Mediastinum/Neck Base: No thyroid nodules. Central tracheobronchial tree is patent. Heart size is enlarged. There is a left chest wall dual-lead AICD. Coronary stents appear to be present.. No pericardial effusion. Normal thoracic vasculature. No thoracic lymphadenopathy. Lungs: Moderate, irregular interstitial opacities, extending throughout the peribronchovascular regions of the lower lobes and lingula, with mild involvement of the posterior right upper lobe. No honeycombing. No significant bronchiectasis. No consolidation. No pleural effusion or pneumothorax. Liver: No suspicious liver lesions. Portal veins appear patent. Gallbladder: Cholecystectomy changes. Spleen: Normal size. Pancreas: No suspicious pancreatic lesions. The pancreatic duct is not dilated. Adrenal glands: No adrenal nodules. Kidneys: No hydronephrosis or obstructing renal stones. Bladder / Pelvic organs: Unremarkable. Bowel: No bowel obstruction. No abnormal bowel wall thickening. The appendix is unremarkable. Sigmoid diverticulosis without diverticulitis. Lymph nodes: No retroperitoneal, mesenteric, or pelvic lymphadenopathy. Peritoneum / Retroperitoneum: No free fluid or air within the abdomen. Vessels: No infrarenal aortic aneurysm. Bones and soft tissues: Degenerative changes of the spine. No acute osseous normality. IMPRESSION: No acute finding in the chest, abdomen or pelvis. Findings of interstitial lung disease, has a basilar predominance, with significant involvement of the peribronchovascular regions. Consider NSIP, cryptogenic organizing pneumonia, or chronic hypersensitivity pneumonitis. Electronically signed by Adam Ricardo 01-11-2025 4:39 PM Ankle X-Ray 01/11/25 15:27 INDICATION: Pain and injury. TECHNIQUE: 3 views of the right foot. 3 views of the right ankle. COMPARISON: No relevant priors. FINDINGS: Nondisplaced fracture of the distal aspect of the proximal phalanx, fifth digit. Remaining osseous structures intact. No dislocation. No lytic or blastic bony lesions seen. Os trigonum noted. Mild diffuse joint space loss. Soft tissue swelling. IMPRESSION: Nondisplaced fracture of the distal aspect of the proximal phalanx, fifth digit. Electronically signed by Frank Jacob 01-11-2025 4:[address] 01/11/25 15:27 CT cervical spine without IV contrast History: Trauma Comparison: None Technique: Using multidetector thin collimation helical acquisition technique, axial, coronal and sagittal CT images through the cervical spine were obtained without intravenous contrast. Dose reduction techniques were achieved by using automatic exposure control and/or adjustment of mA and/or kV according to patient size and/or use of iterative reconstruction technique. Findings: The cervical vertebrae are normally aligned. Straightened cervical lordosis. No acute fracture or subluxation. No prevertebral edema. Severe discogenic degenerative changes at C5-6 and C6-7 where there are prominent anterior bridging osteophytes. No abnormality of the paraspinous soft tissues. Impression: No acute fracture or traumatic subluxation. Electronically signed by Adam Ricardo 01-11-2025 4:[address] 01/11/25 15:27 EXAMINATION: CT of the chest, abdomen and pelvis performed without the administration of IV contrast TECHNIQUE: Helical CT images from the lung apices through the symphysis pubis were obtained without contrast. Coronal and sagittal reformatted images were generated at a workstation for further assessment. Dose reduction techniques were achieved by using automatic exposure control and/or adjustment of mA and/or kV according to patient size and/or use of iterative reconstruction technique. COMPARISON: None HISTORY: Fall FINDINGS: Lines and tubes: None Mediastinum/Neck Base: No thyroid nodules. Central tracheobronchial tree is patent. Heart size is enlarged. There is a left chest wall dual-lead AICD. Coronary stents appear to be present.. No pericardial effusion. Normal thoracic vasculature. No thoracic lymphadenopathy. Lungs: Moderate, irregular interstitial opacities, extending throughout the peribronchovascular regions of the lower lobes and lingula, with mild involvement of the posterior right upper lobe. No honeycombing. No significant bronchiectasis. No consolidation. No pleural effusion or pneumothorax. Liver: No suspicious liver lesions. Portal veins appear patent. Gallbladder: Cholecystectomy changes. Spleen: Normal size. Pancreas: No suspicious pancreatic lesions. The pancreatic duct is not dilated. Adrenal glands: No adrenal nodules. Kidneys: No hydronephrosis or obstructing renal stones. Bladder / Pelvic organs: Unremarkable. Bowel: No bowel obstruction. No abnormal bowel wall thickening. The appendix is unremarkable. Sigmoid diverticulosis without diverticulitis. Lymph nodes: No retroperitoneal, mesenteric, or pelvic lymphadenopathy. Peritoneum / Retroperitoneum: No free fluid or air within the abdomen. Vessels: No infrarenal aortic aneurysm. Bones and soft tissues: Degenerative changes of the spine. No acute osseous normality. IMPRESSION: No acute finding in the chest, abdomen or pelvis. Findings of interstitial lung disease, has a basilar predominance, with significant involvement of the peribronchovascular regions. Consider NSIP, cryptogenic organizing pneumonia, or chronic hypersensitivity pneumonitis. Electronically signed by Adam Ricardo 01-11-2025 4:39 PM Foot X-Ray 01/11/25 15:27 INDICATION: Pain and injury. TECHNIQUE: 3 views of the right foot. 3 views of the right ankle. COMPARISON: No relevant priors. FINDINGS: Nondisplaced fracture of the distal aspect of the proximal phalanx, fifth digit. Remaining osseous structures intact. No dislocation. No lytic or blastic bony lesions seen. Os trigonum noted. Mild diffuse joint space loss. Soft tissue swelling. IMPRESSION: Nondisplaced fracture of the distal aspect of the proximal phalanx, fifth digit. Electronically signed by Frank Jacob 01-11-2025 4:[address] 01/11/25 15:28 CT head without contrast History: Trauma Comparison: 03/20/2017 Technique: Using multidetector thin collimation helical acquisition technique, axial, coronal and sagittal CT images from the skull base to the vertex were obtained without intravenous contrast. Dose reduction techniques were achieved by using automatic exposure control and/or adjustment of mA and/or kV according to patient size and/or use of iterative reconstruction technique. Findings: No intracranial hemorrhage, mass-effect, or midline shift. The ventricles are proportionate to the cerebral sulci. The swartz to white matter differentiation of the cerebral hemispheres is preserved. The basal cisterns are patent. Chronic left basal ganglia infarct. There is moderate cerebral atrophy. Moderate, patchy low-attenuation changes in the white matter, most suggestive of sequelae of chronic small vessel ischemic disease. The visualized paranasal sinuses are clear. Mastoid air cells are clear. Impression: No acute intracranial pathology. Electronically signed by Adam Ricardo 01-11-2025 4:33 PM Ribs w/Chest X-Ray 01/13/25 15:37 Technique: 5 views of the chest and ribs were obtained Findings: There are multifocal interstitial and alveolar opacities bilaterally, most likely due to pneumonia. The heart size is within normal limits. No pleural effusion or pneumothorax is seen. No fracture is noted. There is a left chest wall pacemaker device Impression: 1. Bilateral pneumonia 2. No definite rib fracture ACT 112: Positive. There are findings on this exam that require communication between the performing entity and the patient following Patient Test Result Information Act ([place] ACT 112) guidelines. Electronically signed by Stan Muniz 01-13-2025 5:26 PM Shoulder X-Ray 01/13/25 15:37 Clinical History: Pain after fall 3 views of the right shoulder are submitted for review. Findings: No fracture or dislocation is seen. There is mild acromioclavicular osteoarthritis. No other osseous abnormality is identified. There are no radiopaque foreign bodies. Impression: 1. No definite fracture 2. Mild acromioclavicular osteoarthritis Electronically signed by Stan Muniz 01-13-2025 5:24 PM 01/11/25 15:27 CT abd pelvis wo con Stat CT cervical spine wo con Stat CT chest diagnostic wo con Stat 01/11/25 15:28 CT head/brain wo con Stat Pending Results Patient Have Any Pending Studies at Discharge: Yes Discharge Instructions Given to Patient (Per Discharging Provider) PLEASE REFER TO YOUR NEW MEDICATION LIST AND FOLLOW INSTRUCTIONS CAREFULLY. YOUR NEW MEDICATIONS INCLUDE: Doxycycline-antibiotic for anaplasmosis, x 6 more days Augmentin-antibiotic for pneumonia Restart Plavix in 2 days, January 19, 2025 Hold losartan/HCTZ to prevent low blood pressure. Take a probiotic daily x 1 month. PLEASE CALL YOUR PRIMARY CARE PHYSICIAN OR RETURN TO THE ER IF WITH WORSENING OF SYMPTOMS, INCLUDING Fevers or chills, weakness, confusion, bleeding, Shortness of breath, cough, chest pain, Foot swelling, pain, bleeding, discharge, etc. FOLLOW UP WITH PRIMARY CARE PHYSICIAN early next week. The clinic will be calling you for the appointment schedule. Follow-up with orthopedic service RYANNE Cummings as outlined above. Total Time Total Time Spent Total Time Spent (In Minutes): 45 minutes
--- NOTE | 2025-01-19 13:45 | Coding Query ---
SEPSIS To promote full compliance with coding requirements relating to patient care, physician participation is requested in all cases of surveyor geodetic uncertainty. Please assist us with the question(s) below: In responding to this query, please exercise your independent professional judgement. The fact that a question is asked does not imply that any particular answer is desired or expected. We appreciate your clarification on this issue. . The medical record reflects the following clinical findings: Pt admitted for weakness- UTI, metabolic encephalopathy, pneumonia. Progress notes state " cannot rule out Sepsis" . Please check below, if applicable, the phrase that describes the diagnosis that was treated. Thank you ! JANE Byrne CCS ____ ( )Bacteremia (Nonspecific laboratory finding of bacteria in the blood) Specify Organism ( ) Present on Admission ( ) Not present on admission ( ) Unable to clinically determine ( ) Septicemia (Systemic disease associated with the presence of pathogenic microorganisms in the blood): Specify Organism ( ) Present on Admission ( ) Not present on admission ( ) Unable to clinically determine ( ) Sepsis Specify Organism Specify Associated Condition/Diagnosis ( ) Present on Admission ( ) Not present on admission ( ) Unable to clinically determine ( ) Severe Sepsis (Sepsis associated with acute organ dysfunction) Specify Organism Specify Associated Condition/Diagnosis ( ) Present on Admission ( ) Not present on admission ( ) Unable to clinically determine ( ) Septic Shock (Severe sepsis with acute circulatory failure, unexplained by other causes) ( ) Present on Admission ( ) Not present on admission ( ) Unable to clinically determine ( x) Other, patient has: Possible sepsis, present on admission MTDD
== END 2025-01-17 09:39 | disposition home health service (06) | DRG 871 ==
LOC: ED 14:53 → SUATTDRO 19:14 → 2N 19:14